=== PATIENT | female | born 1950 | race Caucasian/White ===

== ENCOUNTER 2020-02-20 22:13 | Observation (INO) | payer MEDICARE, OTHER ==
[~2020-02-20] VITALS: Ht 160 cm; Wt 108.5 kg
--- NOTE | 2020-02-20 22:30 | NUR ---
RT PLACED PT'S ARM ON SIDE TABLE WITH FOLDED SHEET FOR COMFORT.
[2020-02-20] MEDS ORDERED: HYDROCODONE/APAP 5MG-325MG TAB PO ONE (22:45)
[2020-02-21] VITALS (8 sets, daily range): BP systolic 149–165; BP diastolic 56–73
--- NOTE | 2020-02-21 00:38 | Diagnostic Imaging Report ---
FOREARM 2 VIEW LT -HOPD - 2 views HISTORY: Pain COMPARISON: None available. IMPRESSION: Displaced fracture of left radial head as well as posterior dislocation of elbow joint. Suspected tiny avulsion fracture of olecranon. Soft tissue swelling and small elbow joint effusion. Signed by: Dr. Matthias Dominguez MD on 02/20/2020 11:31 PM
--- NOTE | 2020-02-21 00:38 | Diagnostic Imaging Report ---
ELBOW 3 VIEW LT - HOPD - 3 views HISTORY: Pain COMPARISON: None available. IMPRESSION: Displaced fracture of left radial head as well as posterior dislocation of radius and ulna with respect to the humerus. Suspected tiny avulsion fracture of olecranon. Soft tissue swelling and small elbow joint effusion. Signed by: Dr. Matthias Dominguez MD on 02/20/2020 11:33 PM
--- NOTE | 2020-02-21 00:38 | Diagnostic Imaging Report ---
HUMERUS 2 VIEW LT - HOPD - 4 views HISTORY: Pain COMPARISON: None available. IMPRESSION: No definite evidence of acute displaced fracture of the left humerus. Signed by: Dr. Matthias Dominguez MD on 02/20/2020 11:34 PM
--- OUTSIDE RECORDS SUMMARY | 2020-02-21 00:40 | XMS REPORT ---
Author Author SOTO Galeano Organization Unknown Address Unknown Phone Care Team Providers Care Core Cleaner Name Role Phone Luli Galeano PP Reason for Referral No Reason for Referral was given. History of Present Illness No HPI available. Problems * Normal Routine History And Physical Adult (V70.0); (Active) * Rheumatoid Arthritis (714.0); (Active) * Hypertension (401.9); (Active) Medication * Doxazosin Mesylate 2 MG Oral Tablet; TAKE 1 TABLET DAILY DIRECTED. (Active) * Levothyroxine Sodium 88 MCG Oral Tablet; TAKE 1 TABLET DAILY (Active) * Atenolol 100 MG Oral Tablet; TAKE 1 TABLET DAILY DIRECTED. (Active) * Benicar HCT 40-12.5 MG Oral Tablet; TAKE 1 TABLET DAILY (Active) * Antivert 25 MG Oral Tablet; TAKE 1 TABLET 3 TIMES DAILY NEEDED. (Active) * Phenergan 25 MG TABS; TAKE 1 TABLET EVERY 6 HOURS PRN N&V (Active) * Omnicef 300 MG CAPS; TAKE 1 CAPSULE EVERY 12 HOURS DAILY. (Active) Allergies and Adverse Reactions * No Known Drug Allergies (Active) Past Medical History * History of Dizziness (780.4); (Resolved) Advance Directives * No Advance Directives available. Encounters * AUDIT 02/24/2013 * ECL, Provider: MEMO WILSON, Status: Filemon, Time: 8:30 AM 02/24/2013
--- OUTSIDE RECORDS SUMMARY | 2020-02-21 00:40 | XMS REPORT | Summary of Care ---
Author Author [facility] Address [address] [place] [address] Phone Unavailable Care Team Providers Care Exploration Geologist Name Role Phone KATIE Latham, MEMO Unavailable Unavailable CROW King, ARIC Unavailable Unavailab Adolph ALLEN [place], CAT CACERES Unavailable Unavailable HILLARY ALLEN [place], GREGG ORTEGA Unavailable Unavailable KATIE ALFARO, MEMO Unavailable Unavailable MAVERICK ALLEN [place], ROSARIO Coyle Unavailable Unavailable GERARD ULLOA, ISABELLE Maloney Unavailable Unavailable MOISE ALLEN, DALTON Llamas Unavailable Unavailable VIOLET King, CAT Unavailable Unavailable Crow ALLEN, Aric Unavailable Unavailable Unavailable Unavailable Functional Status Name Dates Details Functional status health issues are not documented Status: Name Dates Details Cognitive status health issues are not d ocumented Status: Problems Name Dates Details Rheumatoid arthritis (714.0, M06.9) Status: Active Need for pneumococcal vaccination (V03.8 2, Z23) Status: Active High triglycerides (272.1, E78.1) Status: Active Uncontrolled hypertension (401.9, I10) Status: Active Herpes zoster (053.9, B02.9) Status: Active Pharyngitis (462, J02.9) Status: Active Hives (708.9, L50.9) Status: Active Elevated sed rate (790.1, R70.0) Status: Active Post-menopausal osteoporosis (733.01, M8 1.0) Status: Active Left knee pain (719.46, M25.562) Status: Active Soft tissue lesion of knee region (729.9 9, M79.89) Status: Active Tear of meniscus of left knee (836.2, S8 3.207A) Status: Active Munroe cyst, 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, 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) Status: Active Tear of cartilage of left knee (836.2, S 83.207A) Status: Active Localized osteoarthrosis of left hip (71 5.35, M16.12) Status: Active Bilateral leg edema (782.3, R60.0) Status: Active Acute bronchitis (466.0, J20.9) Status: Active Motion sickness (994.6, T75.3XXA) Status: Active Impaired fasting glucose (790.21, R73.01 ) Status: Active Flu vaccine need (V04.81, Z23) Status: Active Allergic reaction to drug (995.27, T78.4 0XA) Status: Active Dermatitis (692.9, L30.9) Status: Active Left shoulder pain (719.41, M25.512) Status: Active Encounter for hepatitis C virus screenin g test for high risk patient (V73.89, Z11.59) Status: Active Need for vaccination with 13-polyvalent pneumococcal conjugate vaccine (V03.82, Z23) Status: Active Fatigue (780.79, R53.83) Status: Active Pressure in chest (786.59, R07.89) Status: Active Unstable angina (411.1, I20.0) Status: Active Acute streptococcal pharyngitis (034.0, J02.0) Status: Active Acute UTI (599.0, N39.0) Status: Active Skin candidiasis (112.3, B37.2) Status: Active Left renal mass (593.9, N28.89) Status: Active Thumb pain, left (729.5, M79.645) Status: Active Fall in home, sequela (909.4, W19.XXXS) Status: Active Allergic rhinitis (477.9, J30.9) Status: Active Hypokalemia (276.8, E87.6) Status: Active Encounter for mini-mental status examina tion Status: Active At moderate risk for fall (V15.88, Z91.8 1) Status: Active Medicare annual wellness visit, subseque nt (V70.0, Z00.00) Status: Active Acute frontal sinusitis (461.1, J01.10) Status: Active Breast cancer screening (V76.10, Z12.39) Status: Active Post-menopausal (V49.81, Z78.0) Status: Active Osteoporosis screening (V82.81, Z13.820) Status: Active Abnormal glucose measurement (790.29, R7 3.09) Status: Active Cellulitis of left lower extremity (682. 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, M17.11 ) Status: Active Edema (782.3, R60.9) Status: Active At risk for change in mental status (V15 .89, Z91.89) Status: Active Advance directive discussed with patient (V65.49, Z71.89) Status: Active Urinary incontinence (788.30, R32) Status: Active Acute bronchitis, viral (466.0, J20.8) Status: Active Depression screening (V79.0, Z13.31) Status: Active Otitis media, acute (382.9, H66.90) Status: Active Maxillary sinusitis, acute (461.0, J01.0 0) Status: Active Acute otitis media (382.9, H66.90) Status: Active Otalgia of both ears (388.70, H92.03) Status: Active Bilateral hearing loss (389.9, H91.93) Status: Active 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, H90.5) Status: Active Prediabetes (790.29, R73.03) Status: Active Acute bacterial bronchitis (466.0, J20.8 ) Status: Active Hypothyroidism (244.9, E03.9) Status: Active Adult BMI 40.0-44.9 kg/sq m (V85.41, Z68 .41) Status: Active Hyperlipidemia (272.4, E78.5) Status: Active Essential (primary) hypertension (401.9, I10) Status: Active Lower extremity edema (782.3, R60.0) Status: Active Lymphedema (457.1, I89.0) Status: Active Left leg pain (729.5, M79.605) Status: Active Stasis edema of left lower extremity (45 9.30, I87.302) Status: Active Chronic venous insufficiency (459.81, I8 7.2) Status: Active Medications Name Dates Details Doxazosin Mesylate 4 MG Oral Tablet TAKE 1 TABLET DAILY DIRECTED Quantity: 90 KATIE P.A., MEMO * Start : 28-Jan-2014 Active Levothyroxine Sodium 88 MCG Oral Tablet TAKE ONE TABLET BY MOUTH EVERY DAY DIRECTED * Quantity: 90 Refills: 1 KATIE P.A. MEMO * Start : 18-Mar-2015 Active Ventolin HFA 108 (90 Base) MCG/ACT Inhalation Aerosol Solution INHALE 2 PUFFS EVERY 4 HOURS NEEDED * Quantity: 1 Refills: 1 KATIE P.A.NICOLEMEMO * Start : 29-Sep-2013 Active 8 GM Inhaler Atenolol 50 MG Oral Tablet TAKE 1 TABLET TWICE DAILY. * Quantity: 180 Refills: 1 KATIE P.A.NICOLEMEMO * Start : 21-Jul-2014 Active amLODIPine Besylate 5 MG Oral Tablet TAKE 1 TABLET Daily NEEDS OFFICE VISIT * Quantity: 90 Refills: 3 ARIC MARIA M.D. * Start : 12-Jan-2015 Active Fluticasone Propionate 50 MCG/ACT Nasal Suspension USE 1 SPRAY IN EACH NOSTRIL TWICE A DAY * Quantity: 16 Refills: 2 KATIE P.A.NICOLEMEMO * Start : 25-Oct-2017 Active Claudette 180 MG TABS TAKE 1 TABLET DAILY NEEDED. * Refills: 0 Active Tylenol CAPS PRN * Refills: 0 Active Olmesartan Medoxomil 40 MG Oral Tablet TAKE 1 TABLET DAILY. * Quantity: 90 Refills: 1 KATIE P.A.NICOLEMEMO * Start : 15-Oct-2016 Active Betamethasone Dipropionate Aug 0.05 % External Ointment APPLY SPARINGLY TO AFFECTED AREA(S) TWICE DAILY * Quantity: 1 Refills: 1 KATIE P.A. MEMO * Start : 25-Feb-2018 Active 45 GM Tube Pravastatin Sodium 40 MG Oral Tablet TAKE 1 TABLET Daily NEEDS OFFICE VISIT * Quantity: 90 Refills: 1 KATIE P.A.NICOLEMEMO * Start : 28-Feb-2018 Active Aspirin Low Dose 81 MG Oral Tablet Delayed Release TAKE 1 TABLET EVERY OTHER DAY * Refills: 0 ARIC MARIA M.D. * Start : 10-Jul-2018 Active Allergies and Adverse Reactions Name Dates Details Bactrim DS TABS (Allergy) Status: Active Cephalexin Monohydrate TABS (Allergy) St atus: Active Cephalosporins (Allergy) Status: Denied clindamycin (Allergy) Status: Denied Almonds (Allergy) Status: Active Animal dander - Cats (Allergy) Status: A ctive Past Medical History Name Dates Details History of Acute laryngitis (464.00, J04 .0) Status: Resolved History of Acute maxillary sinusitis (46 1.0, J01.00) Status: Resolved History of acute pharyngitis (V12.69, Z8 7.09) Status: Resolved History of acute sinusitis (V12.69, Z87. 09) Status: Resolved History of gastroenteritis (V12.79, Z87. 19) Status: Resolved History of Hematoma (924.9, T14.8XXA) Status: Resolved History of Pain in joint of left shoulde r (719.41, M25.512) Status: Resolved History of Plantar fasciitis (728.71, M7 2.2) Status: Resolved History of serous otitis media (V12.49, Z86.69) Status: Resolved Procedures Procedure Dates Details CVRAD - Lower Venous Comp - 70349 Date: 12-Jun-2019 History of Sinus Surgery Completed History of Total Abdominal Hysterectomy With Removal Of Both Ovaries Completed Immunization Name Dates Details Influenza Lot #: [id number] on: 19-May-2014 Pneumococcal polysaccharide vaccine, 23 valent Lot #: [id number] on: 09-Aug-2014 Fluzone Quadrivalent 0.5 ML Intramuscula r Suspension Prefilled Syringe Lot #: [id number] on: 02-May-2016 Prevnar 13 Intramuscular Suspension Lot #: [id number] on: 06-Aug-2016 Prevnar 13 Intramuscular Suspension Lot #: [id number] on: 06-Aug-2016 Fluzone Quadrivalent 0.5 ML Intramuscula r Suspension Lot #: [id number] on: 24-Apr-2017 Fluzone High-Dose 0.5 ML Intramuscular S uspension Prefilled Syringe Lot #: [id number] on: 29-Apr-2018 Tdap Not Administered Family History Name Dates Details Family history of congestive heart failu re (V17.49, Z82.49) Status: Active Family history of Hypertension (401.9, I 10) Status: Active Name Dates Details Family history of Hypertension (401.9, I 10) Status: Active Family history of Coronary artery diseas e (414.00, I25.10) Status: Active Name Dates Details Family history of hypertension (V17.49, Z82.49) Status: Active Social History Name Dates Details - Status: Name Dates Details Never smoker Vital Signs Date Test Result Details No Known Vitals to report Results Date Description Value Details Results not documented Plan of Care Name Dates Details Planned Observations Planned Goals not documented Planned Encounters Appointment; GREGG THORNTON M.D. On: 01-Sep-2019 9:00 Appointment; ARIC MARIA M .D. On: 30-Oct-2019 10:40 Instructions Name Dates Details Instructions not documented Encounters Appointment; MEMO WILSON P.A. Encounter Diagnosis: Problem not documented On: 08-Aug-2017 11:00 Appointment; MEMO WILSON P.A. Encounter Diagnosis: Problem not documented On: 23-Oct-2017 13:15 Appointment; MEMO WILSON P.A. Encounter Diagnosis: Problem not documented On: 25-Feb-2018 14:00 Appointment; MEMO WILSON P.A. Encounter Diagnosis: Problem not documented On: 29-Apr-2018 10:45 Appointment; ARIC MARIA M .D. Encounter Diagnosis: Problem not documented On: 30-Apr-2018 13:40 Appointment; MEMO WILSON P.A. Encounter Diagnosis: Problem not documented On: 02-Jun-2018 8:00 Appointment; SCOTTY GUTIERREZ M.D. Encounter Diagnosis: Problem not documented On: 11-Jun-2018 13:15 Appointment; SCOTTY GUTIERREZ M.D. Encounter Diagnosis: Problem not documented On: 16-Jul-2018 13:15 Appointment; MEMO WILSON P.A. Encounter Diagnosis: Problem not documented On: 12-Aug-2018 15:00 Appointment; ISABELLE GEE NP Encounter Diagnosis: Problem not documented On: 03-Nov-2018 10:30 Appointment; DALTON PHIPPS M.D. Encounter Diagnosis: Problem not documented On: 13-Nov-2018 13:45 Appointment; JALEESA FLORES Encounter Diagnosis: Problem not documented On: 20-Nov-2018 15:30 Appointment; DALTON PHIPPS M.D. Encounter Diagnosis: Problem not documented On: 27-Nov-2018 13:30 Appointment; DALTON PHIPPS M.D. Encounter Diagnosis: Problem not documented On: 01-Jan-2019 10:15 Appointment; MEMO WILSON P.A. Encounter Diagnosis: Problem not documented On: 17-Feb-2019 13:00 Appointment; [facility] Encounter Diagnosis: Problem not documented On: 28-Apr-2019 11:00 Appointment; ARIC MARIA M .D. Encounter Diagnosis: Problem not documented On: 28-Apr-2019 12:00 Appointment; GREGG THORNTON M.D. Encounter Diagnosis: Problem not documented On: 22-May-2019 11:30 Appointment; [facility] Encounter Diagnosis: Problem not documented On: 12-Jun-2019 8:00 Appointment; GREGG THORNTON M.D. Encounter Diagnosis: Problem not documented On: 19-Jun-2019 11:15
--- OUTSIDE RECORDS SUMMARY | 2020-02-21 00:40 | XMS REPORT | Continuity of Care Document ---
Author Author MobimSOTO Mobim Address Unknown Phone Unavailable Care Team Providers Care Masonry Contractor Administrator Name Role Phone [employer] Unavailable Un available Problems Problem Status Onset Date Classification Date Reported Comments Source Rheumatoid Arthritis Active 08/26/2013 [facility] Hypertension Active 08/26/2013 [facility] Acute Conjunctivitis Active 08/26/2013 [facility] Periorbital Cellulitis Active 08/26/2013 [facility] Acute Upper Respiratory Infection Active 08/26/2013 [facility] Cellulitis Active 08/26/2013 [facility] Hypothyroidism Active 08/26/2013 [facility] Medications Medication Details Route Status Patient Instructions Ordering Provider Order Date Source Betamethasone Dipropionate Aug 0.05 % External Ointmen t ; Start Date: 08/26/2013; End Date: (Active) Active 08/26/2013 [facility] Mupirocin 2 % External Ointment ; Start Date: 08/26/2013; End Date: (Active) Active 08/26/2013 [facility] Clindamycin HCl 300 MG Oral Capsule ; Start Date: 08/26/2013; End Date: (Active) Active 08/26/2013 [facility] Sulfamethoxazole-TMP DS 800-160 MG Oral Tablet ; Start Date: 08/26/2013; End Date: (Active) Active 08/26/2013 [facility] Cortisporin-TC 3.3-3-10-0.5 MG/ML Otic Suspension ; Start Date: 08/26/2013; End Date: (Active) Active 08/26/2013 [facility] Amoxicillin-Pot Clavulanate 500-125 MG Oral Tablet ; Start Date: 05/13/2013; End Date: (Active) Active 05/13/2013 [facility] Cefdinir 300 MG Oral Capsule ; Start Date: 02/24/2013; End Date: (Active) Active 02/24/2013 [facility] Levothyroxine Sodium 88 MCG Oral Tablet ; Start Date: ; End Date: (Active) Inactive [facility] Atenolol 100 MG Oral Tablet ; Start Date: ; End Date: (Active) Inactive [facility] Doxazosin Mesylate 2 MG Oral Tablet (Active) Active [facility] Levothyroxine Sodium 88 MCG Oral Tablet (Active) Active [facility] Atenolol 100 MG Oral Tablet ( Active) Active [facility] Benicar HCT 40-12.5 MG Oral Tablet (Active) Active [facility] Antivert 25 MG Oral Tablet (A ctive) Active [facility] Phenergan 25 MG TABS (Active) Active [facility] Omnicef 300 MG CAPS (Active) Active [facility] PredniSONE 10 MG Oral Tablet (Active) Active [facility] Allergies, Adverse Reactions, Alerts Substance Category Reaction Severity Reaction type Status Date Reported Comments Source No Known Drug Allergies drug a llergy drug aller gy Active [facility] Immunizations No Data Provided for This Section Results No Data Provided for This Section Pathology Reports No Data Provided for This Section Diagnostic Reports No Data Provided for This Section Consultation Notes No Data Provided for This Section Discharge Summaries No Data Provided for This Section History and Physicals No Data Provided for This Section Vital Signs No Data Provided for This Section Encounters Location Location Details Encounter Type Encounter Number Reason For Visit Attending Provider ADM Date DC Date Status Source AUDIT [id number] 02/24/2013 02/24/2013 [facility] ECL, Provi maggie: MEMO WILSON, Status: Pen, Time: 8:30 AM [id number] 02/25/20 13 02/24/2013 [facility] AUDIT [id number] 05/13/2013 05/13/2013 [facility] AUDIT [id number] 08/26/2013 08/26/2013 [facility] FUMray, Provluz maria maggie: MEMO WILSON, Status: Pen, Time: 1:00 PM [id number] 08/28/19 14 08/26/2013 [facility] Procedures No Data Provided for This Section Assessment and Plan No Data Provided for This Section Plan of Care Plan of Care Date Source [[facility]] CBC (INCLUDES DIFF/PLT) 05/13/2013 Routine[[facility]] CMP W/EGFR 05/13/2013 Routine[Q] LIPID PANEL WITH REFLEX TO DIRECT LDL 05/13/2013 Routine[[facility]] TSH, 3RD GENERATION 05/13/2013 Routine 05/13/2013 [facility] Social History Social History Date Source Never A Smoker (Active) 08/26/2013 [facility] Family History No Data Provided for This Section Advance Directives Order Name Results Value Date Source Advance Directives Advance Dir ectives No Advance Directives available. 08/26/2013 [facility] Advance Directives Advance Dir ectives No Advance Directives available. 05/13/2013 [facility] Advance Directives Advance Dir ectives No Advance Directives available. 02/24/2013 [facility] Functional Status No Data Provided for This Section
--- OUTSIDE RECORDS SUMMARY | 2020-02-21 00:40 | XMS REPORT ---
Author Author SOTO Hernandez Organization Unknown Address Unknown Phone Care Team Providers Care Public Service Representative Name Role Phone Antony Hernandezmaldonado PP Unavailable Reason for Referral No Reason for Referral was given. History of Present Illness No HPI available. Problems * Normal Routine History And Physical Adult (V70.0); (Active) * Rheumatoid Arthritis (714.0); (Active) * Acute Conjunctivitis (372.00); (Active) * Periorbital Cellulitis (682.0); (Active) * Hypertension (401.9); (Active) * Acute Upper Respiratory Infection (465.9); (Active) Medication * Doxazosin Mesylate 2 MG Oral Tablet; TAKE 1 TABLET DAILY DIRECTED. (Active) * Levothyroxine Sodium 88 MCG Oral Tablet; TAKE 1 TABLET DAILY (Active) * Atenolol 100 MG Oral Tablet; TAKE 1 TABLET DAILY DIRECTED. (Active) * Benicar HCT 40-12.5 MG Oral Tablet; TAKE 1 TABLET DAILY (Active) * Cefdinir 300 MG Oral Capsule; TAKE 1 CAPSULE TWICE DAILY.; Start Date: 02/24/2013; End Date: (Active) * PredniSONE 10 MG Oral Tablet; Take 2 a day (Active) * Amoxicillin-Pot Clavulanate 500-125 MG Oral Tablet; TAKE 1 TABLET EVERY 12 HOURS DAILY.; Start Date: 05/13/2013; End Date: (Active) Allergies and Adverse Reactions * No Known Drug Allergies (Active) Past Medical History * History of Dizziness (780.4); (Resolved) * History of Hypertension (401.9); (Resolved) * History of Hypothyroidism (244.9); (Resolved) Procedures Procedure Procedure Date Date Completed Status Total Abdominal Hysterectomy With Removal Of Both Ovaries - - Resolved Sinus Surgery - - Resolved Social History * Never A Smoker (Active) Treatment Plan * [[facility]] CBC (INCLUDES DIFF/PLT) 05/13/2013 Routine * [[facility]] CMP W/EGFR 05/13/2013 Routine * [Q] LIPID PANEL WITH REFLEX TO DIRECT LDL 05/13/2013 Routine * [[facility]] TSH, 3RD GENERATION 05/13/2013 Routine Advance Directives * No Advance Directives available. Encounters * AUDIT 05/13/2013
--- OUTSIDE RECORDS SUMMARY | 2020-02-21 00:40 | XMS REPORT ---
Author Author SOTO WILSON Organization Unknown Address Unknown Phone Care Team Providers Care Marine Equipment Design Engineer Name Role Phone KATIENICOLEMEMO PP Unavailable Reason for Referral No Reason for Referral was given. History of Present Illness No HPI available. Problems * Normal Routine History And Physical Adult (V70.0); (Active) * Rheumatoid Arthritis (714.0); (Active) * Acute Conjunctivitis (372.00); (Active) * Periorbital Cellulitis (682.0); (Active) * Hypertension (401.9); (Active) * Acute Upper Respiratory Infection (465.9); (Active) * Cellulitis (682.9); (Active) * Hypothyroidism (244.9); (Active) Medication * Doxazosin Mesylate 2 MG Oral Tablet; TAKE 1 TABLET DAILY DIRECTED. (Active) * Levothyroxine Sodium 88 MCG Oral Tablet; TAKE 1 TABLET DAILY; Start Date: ; End Date: (Active) * Benicar HCT 40-12.5 MG Oral Tablet; TAKE 1 TABLET DAILY (Active) * Atenolol 100 MG Oral Tablet; TAKE 1 TABLET DAILY DIRECTED.; Start Date: ; End Date: (Active) * Betamethasone Dipropionate Aug 0.05 % External Ointment; APPLY SPARINGLY TO AFFECTED AREA(S) TWICE DAILY; Start Date: 08/26/2013; End Date: (Active) * Mupirocin 2 % External Ointment; APPLY A SMALL AMOUNT 3 TIMES DAILY DIRECTED.; Start Date: 08/26/2013; End Date: (Active) * Clindamycin HCl 300 MG Oral Capsule; 1 tab po tid x 10d.; Start Date: 08/26/2013; End Date: (Active) * Sulfamethoxazole-TMP DS 800-160 MG Oral Tablet; TAKE 1 TABLET TWICE DAILY UNTIL FINISHED.; Start Date: 08/26/2013; End Date: (Active) * Cortisporin-TC 3.3-3-10-0.5 MG/ML Otic Suspension; INSTILL 4 DROP TWICE DAILY; Start Date: 08/26/2013; End Date: (Active) Allergies and Adverse Reactions [...] Social History * Never A Smoker (Active) Advance Directives * No Advance Directives available. Encounters * AUDIT 08/26/2013 * FU, Provider: MEMO WILSON, Status: Filemon, Time: 1:00 PM 08/28/2013
--- OUTSIDE RECORDS SUMMARY | 2020-02-21 00:40 | XMS REPORT | Continuity of Care Document ---
Author Author [facility] t Organization [facility] Address [address] [place] [address] Phone Unavailable Care Team Providers Care Pattern Chart Writer Name Role Phone MEMO WILSON, P.A. Attphys Unavailable MARIAH MARIA M.D. Attphys UnavailGREGG Vázquez M.D. Attphys Unavailable VASCULAR, SE Attphys Unavailable [place]-[facility], ECHO Attphys Unavailable DALTON PHIPPS M.D. Attphys Unavailable JALEESA FLORES Attphys Unavailable ISABELLE GEE APRN Attphys Unavailable SCOTTY GUTIERREZ M.D. Attphys Unavailable [place], NUCLEAR Attphys Unavailable LIDUMILA FAGAN, P.A. Attphys Unavailable Problems Condition Name Condition Details Condition Category Status Onset Date Resolution Date Last Treatment Date Treating Clinician Comments Source Encounter for mini-mental status examination Encounter for mini-mental status examination Problem Active [facility] History of Acute laryngitis History of Acute laryngitis Problem Resolved [facility] Maxillary sinusitis, acute Maxillary sinusitis, acute Problem Active [facility] History of acute sinusitis History of acute sinusitis Problem Resolved [facility] History of gastroenteritis History of gastroenteritis Problem Resolved [facility] History of Hematoma History of Hematoma Problem Resolved [facility] Left shoulder pain Left shoulder pain Problem Active [facility] History of Plantar fasciitis History of Plantar fasciitis Problem Re solved [facility] History of serous otitis media History of serous otitis media Probl em Resolved [facility] carito Physicians Rheumatoid arthritis Rheumatoid arthritis Problem Active [facility] Need for influenza vaccination Need for influenza vaccination Problem Active [facility] Essential (primary) hypertension Essential (primary) hypertensio n Problem Active [facility] Herpes zoster Herpes zoster Problem Active [facility] Sore throat Sore throat Problem Active [facility] Hives Hives Problem Active [facility] Elevated sed rate Elevated sed rate Problem Active [facility] Post-menopausal osteoporosis Post-menopausal osteoporosis Problem Active [facility] Left knee pain Left knee pain Problem Active [facility] Soft tissue lesion of knee region Soft tissue lesion of knee reg ion Problem Active [facility] Tear of cartilage of left knee Tear of cartilage of left knee Problem Active [facility]icians Munroe cyst, left Munroe cyst, left Problem Active [facility] Localized osteoarthrosis of left hip Localized osteoarthrosi s of left hip Problem Active [facility] Lower extremity edema Lower extremity edema Problem Active [facility] Acute bronchitis Acute bronchitis Problem Active [facility] Motion sickness Motion sickness Problem Active [facility] Impaired fasting glucose Impaired fasting glucose Problem Active [facility] Allergic reaction to drug Allergic reaction to drug Problem Active [facility] Dermatitis Dermatitis [facility] Encounter for hepatitis C virus screening test for hig h risk patient Encounter for hepatitis C virus screening test for high risk patient Problem Active [facility] Fatigue Fatigue Problem Active [facility] Pressure in chest Pressure in chest Problem Active [facility] Unstable angina Unstable angina Problem Active [facility] Acute streptococcal pharyngitis Acute streptococcal pharyngitis Pro blem Active [facility] Acute UTI Acute UTI Problem [facility] Skin candidiasis Skin candidiasis Problem Active [facility] Allergic rhinitis Allergic rhinitis Problem Active [facility] Hypokalemia Hypokalemia Problem Active [facility] At moderate risk for fall At moderate risk for fall Problem Active [facility] Medicare annual wellness visit, subsequent Medicare an nual wellness visit, subsequent Problem Active [facility] Acute frontal sinusitis Acute frontal sinusitis Problem Active [facility] Breast cancer screening Breast cancer screening Problem Active [facility] Post-menopausal Post-menopausal Problem Active [facility] Osteoporosis screening Osteoporosis screening Problem Active [facility] Abnormal glucose measurement Abnormal glucose measurement Problem Active [facility] Cellulitis of left lower extremity Cellulitis of left lower extr emity Problem Active [facility] Hematuria Hematuria Problem [facility] Acute otitis media Acute otitis media Problem Active [facility] Acute bronchitis, viral Acute bronchitis, viral Problem Active [facility] Left leg pain Left leg pain Problem Active [facility] Stasis edema of left lower extremity Stasis edema of left lo wer extremity Problem Active [facility] Otitis, serous Otitis, serous Problem Active [facility] Depression screening negative Depression screening negative Problem Active [facility] Chronic venous insufficiency Chronic venous insufficiency Problem Active [facility] Edema Edema Problem Active [facility] High triglycerides High triglycerides Problem Active [facility] Hypothyroidism Hypothyroidism Problem Active [facility] Adult BMI 40.0-44.9 kg/sq m Adult BMI 40.0-44.9 kg/sq m Problem Active [facility] Prediabetes Prediabetes Problem Active [facility] Hyperlipidemia Hyperlipidemia Problem Active [facility] Mitral and aortic regurgitation Mitral and aortic regurgitation Pro blem Active [facility] ex [facility]icians Asymmetric SNHL (sensorineural hearing loss) Asymmetri c SNHL (sensorineural hearing loss) Problem Active [facility] Bilateral hearing loss Bilateral hearing loss Problem Active [facility] Otalgia of both ears Otalgia of both ears Problem Active [facility] Urinary incontinence Urinary incontinence Problem Active [facility] Advance directive discussed with patient Advance direc tive discussed with patient Problem Active [facility]icians At risk for change in mental status At risk for change in mental status Problem Active [facility] Arthritis of knee, right Arthritis of knee, right Problem Active [facility] Right knee pain Right knee pain Problem Active [facility] Vitamin D deficiency Vitamin D deficiency Problem Active [facility] Dizziness Dizziness Problem Active [facility] Atrophic vaginitis Atrophic vaginitis Problem Active [facility] Fall in home, sequela Fall in home, sequela Problem Active [facility] Thumb pain, left Thumb pain, left Problem Active [facility] Left renal mass Left renal mass Problem Active [facility] Lymphedema Lymphedema [facility] Rheumatoid Arthritis Rheu matoid Arthritis Active 08/26/2013 [facility] Problem Active 2013-08-26 16:36:39 Nkechi Dickson Hypertension Hype rtension Active 08/26/2013 [facility] Problem Active 2013-08-26 16:36:39 Chi Dickson Acute Conjunctivitis Acut e Conjunctivitis Active 08/26/2013 [facility] Problem Active 2013-08-26 16:36:39 Nkechi Dickson Periorbital Cellulitis Maria Antonia orbital Cellulitis Active 08/26/2013 [facility] Problem Active 2013-08-26 16:36:39 Nkechi Dickson Acute Upper Respiratory Infection Acute Upper Respiratory Infection Active 08/26/2013 [facility] Problem Active 2013-08-26 16:36:39 Nkechi Dickson Cellulitis Cell ulitis Active 08/26/2013 [facility] Problem Active 2013-08-26 16:36:39 Nkechi Dickson Hypothyroidism Hypo thyroidism Active 08/26/2013 [facility] Problem Active 2013-08-26 16:36:39 M chikis Dickson Allergies, Adverse Reactions, Alerts Allergy Name Allergy Type Status Severity Reaction(s) Onset Date Inacti ve Date Treating Clinician Comments Source Bactrim DS TABS Allergy to drug (finding) Active [facility] Cephalexin Monohydrate TABS Allergy to drug (finding) Active [facility] Cephalosporins Allergy to drug (finding) Inactive [facility] clindamycin Allergy to drug (finding) Inactive [facility] Almonds Allergy to substance (finding) Active [facility] Animal dander - Cats Allergy to substance (finding) Active [facility] No Known Drug Allergies No Known Drug Allergies Active Nkechi Dickson Family History Family Member Diagnosis Comments Start Date Stop Date Source Mother Family history of congestive heart failure [facility] Mother Family history of Hypertension [facility] Father Family history of Hypertension [facility] Father Family history of Coronary artery disease [facility] Brother Family history of hypertension [facility] Social History Social Habit Start Date Stop Date Quantity Comments Source Social History 2013-08-26 16:36:39 2013-08-26 16:36:39 Nkechi Dickson Smoking Status Start Date Stop Date Source [facility] smoked tobacco (finding[facility] Medications Ordered Medication Name Filled Medication Name Start Date Stop Da te Current Medication? Ordering Clinician Indication Dosage Frequency Signature (SIG) Comments Components Source Amoxicillin-Pot Clavulanate 875-125 MG Oral Tablet Siobhan xicillin-Pot Clavulanate 875-125 MG Oral Tablet 2019-12-04 00:00:00 Yes MEMO WILSON P.A. Q12H TAKE 1 TABLET EVERY 12 HOURS DAILY. [facility] Aspirin Low Dose 81 MG Oral Tablet Delayed Release Asp irin Low Dose 81 MG Oral Tablet Delayed Release 2018-07-10 00:00:00 Yes MARIAH ESTEBAN M.D. 1 QD TAKE 1 TABLET EVERY OTHER DAY [facility] Pravastatin Sodium 40 MG Oral Tablet Pravastatin Sodium 40 M G Oral Tablet 2018-02-28 00:00:00 Yes MEMO KATIE P.A. QD TAKE 1 TABLET Daily NEEDS OFFICE VISIT [facility] Betamethasone Dipropionate Aug 0.05 % External Ointmen t Betamethasone Dipropionate Aug 0.05 % External Ointment 2018-02-25 00:00:00 Ye s MEMO KATIE P.A. Q0.5D APPLY SPARINGLY TO AFFECTED AREA(S) TWIC E DAILY [facility] Fluticasone Propionate 50 MCG/ACT Nasal Suspension Flu ticasone Propionate 50 MCG/ACT Nasal Suspension 2017-10-25 15:58:00 Yes MEMO KATIE P.A. USE 1 SPRAY IN EACH NOSTRIL TWICE A DAY [facility] Olmesartan Medoxomil 40 MG Oral Tablet Olmesartan Medoxomil 40 MG Oral Tablet 2016-10-15 00:00:00 Yes MEMO WILSON P.A. 1 QD TAKE 1 TABLET DAILY. [facility] Levothyroxine Sodium 88 MCG Oral Tablet Levothyroxine Sodium 88 MCG Oral Tablet 2015-03-18 00:00:00 Yes MEMO KATIE P.A. TAKE ONE TABLET BY MOUTH EVERY DAY DIRECTED [facility] amLODIPine Besylate 5 MG Oral Tablet amLODIPine Besylate 5 M G Oral Tablet 2015-01-12 00:00:00 Yes MARIAH MARIA M.D. QD TAKE 1 TABLET BY MOUTH DAILY [facility] Atenolol 50 MG Oral Tablet Atenolol 50 MG Oral Tablet 2014-07-21 00:0 0:00 Yes MEMO KATIE P.A. Q0.5D TAKE 1 TABLET TWICE DAILY. [facility] Doxazosin Mesylate 4 MG Oral Tablet Doxazosin Mesylate 4 MG Oral Tablet 2014-01-28 00:00:00 Yes MEMO KATIE P.A. 1 QD TAKE 1 TABLET DAILY DIRECTED [facility] Ventolin HFA 108 (90 Base) MCG/ACT Inhalation Aerosol Solution Ventolin HFA 108 (90 Base) MCG/ACT Inhalation Aerosol Solution 2013-09-29 00:00:00 Yes MEMO WILSON P.A. 2 INHALE 2 PUFFS EVERY 4 HOURS NEEDED [facility] Doxazosin Mesylate 2 MG Oral Tablet 2013-08-26 16:36:39 Yes (Active) Nkechi Dickson Benicar HCT 40-12.5 MG Oral Tablet 2013-08-26 16:36:39 Yes (Active) Nkechi Dickson Betamethasone Dipropionate Aug 0.05 % External Ointment 2013-08-26 06:00:00 Yes ; Start Date: 08/26/2013; End Date: 07/1899 (Active) Nkechi Dickson Mupirocin 2 % External Ointment 2013-08-26 06:00:00 Yes ; Start Date: 08/26/2013; End Date: (Active) Nkechi Dickson Clindamycin HCl 300 MG Oral Capsule 2013-08-26 06:00:00 Yes ; Start Date: 08/26/2013; End Date: (Active) Nkechi Dickson Sulfamethoxazole-TMP DS 800-160 MG Oral Tablet 2013-08-26 06:00: 00 Yes ; Start Date: 08/26/2013; End Date: (Active ) Nkechi Dickson Cortisporin-TC 3.3-3-10-0.5 MG/ML Otic Suspension 2013-08-26 06:00:00 Yes ; Start Date: 08/26/2013; End Date: (Active) Nkechi Dickson Levothyroxine Sodium 88 MCG Oral Tablet 2013-05-13 22:47:29 Yes (Active) Nkechi Dickson Atenolol 100 MG Oral Tablet 2013-05-13 22:47:29 Yes (Active) Nkechi Dickson PredniSONE 10 MG Oral Tablet 2013-05-13 22:47:29 Yes (Active) Nkechi Dickson Amoxicillin-Pot Clavulanate 500-125 MG Oral Tablet 2013-05 06:00:00 Yes ; Start Date: 05/13/2013; End Date: 07/1899 (Active) Nkechi Dickson Antivert 25 MG Oral Tablet 2013-02-24 11:46:35 Yes (Active) Nkechi Dickson Phenergan 25 MG TABS 2013-02-24 11:46:35 Yes (Active) Nkechi Dickson Omnicef 300 MG CAPS 2013-02-24 11:46:35 Yes (Active) Nkechi Dickson Cefdinir 300 MG Oral Capsule 2013-02-24 05:00:00 Yes ; Start Date: 02/24/2013; End Date: (Active) Nkechi Dickson Levothyroxine Sodium 88 MCG Oral Tablet Yes ; Start Date: ; End Date: (Active) Nkechi Dickson Atenolol 100 MG Oral Tablet Yes ; Start Date: ; End Date: (Active) Nkechi Dickson Claudette 180 MG TABS Claudette 180 MG TABS Yes 1 TAKE 1 TABLET DAILY NEEDED. [facility] Tylenol CAPS Tylenol CAPS Yes PRN [facility] Refresh SOLN Refresh SOLN Yes [facility] Immunizations Ordered Immunization Name Filled Immunization Name Date Status Comments Source Fluzone High-Dose 0.5 ML Intramuscular Suspension Prefilled Syringe 2019-05-08 00:00:00 Completed [facility] Fluzone High-Dose 0.5 ML Intramuscular Suspension Prefilled Syringe 2018-04-29 13:13:00 Completed [facility] Fluzone Quadrivalent 0.5 ML Intramuscular Suspension 2017-04-24 14:47:00 Completed [facility] Prevnar 13 Intramuscular Suspension 2016-08-06 15:34:00 Co mpleted [facility] Prevnar 13 Intramuscular Suspension 2016-08-06 09:16:00 Co mpleted [facility] Fluzone Quadrivalent 0.5 ML Intramuscular Suspension Prefill ed Syringe 2016-05-02 11:26:00 Completed [facility] Pneumococcal polysaccharide vaccine, 23 valent 2014-08 16:09:00 Completed [facility] Influenza 2014-05-19 16:30:00 Completed [facility] Vital Signs Vital Name Observation Time Observation Value Comments Source Systolic blood pressure 2019-12-04 14:13:00 147 mm[Hg] Loca tion: LUE; Position: Sitting [facility] Diastolic blood pressure 2019-12-04 14:13:00 71 mm[Hg] Loc ation: LUE; Position: Sitting [facility] Body height 2019-12-04 14:13:00 63 [in_us] [facility] Weight 2019-12-04 14:13:00 227.00 [lb_av] [facility] Body mass index (BMI) [Ratio] 2019-12-04 14:13:00 40.21 kg/m2 [facility] Body temperature 2019-12-04 14:13:00 98.5 [degF] Method: [facility] Heart Rate 2019-12-04 14:13:00 64 /min [facility] Respiratory rate 2019-12-04 14:13:00 16 /min [facility] Systolic blood pressure 2019-09-07 13:30:00 119 mm[Hg] Loca tion: LUE; Position: Sitting [facility] Diastolic blood pressure 2019-09-07 13:30:00 72 mm[Hg] Loc ation: LUE; Position: Sitting [facility] Body height 2019-09-07 13:30:00 63 [in_us] [facility] Weight 2019-09-07 13:30:00 232.5 [lb_av] [facility] Body mass index (BMI) [Ratio] 2019-09-07 13:30:00 41.19 kg/m2 [facility] Body temperature 2019-09-07 13:30:00 97.9 [degF] Method: [facility] Respiratory rate 2019-09-07 13:30:00 16 /min [facility] Heart Rate 2019-09-07 13:30:00 66 /min [facility] Systolic blood pressure 2019-08-03 13:25:00 117 mm[Hg] Loca tion: LUE; Position: Sitting [facility] Diastolic blood pressure 2019-08-03 13:25:00 70 mm[Hg] Loc ation: LUE; Position: Sitting [facility] Body height 2019-08-03 13:25:00 63 [in_us] [facility] Weight 2019-08-03 13:25:00 236 [lb_av] [facility] Body mass index (BMI) [Ratio] 2019-08-03 13:25:00 41.81 kg/m2 [facility] Body temperature 2019-08-03 13:25:00 97.9 [degF] Method: [facility] Heart Rate 2019-08-03 13:25:00 63 /min [facility] Respiratory rate 2019-08-03 13:25:00 16 /min [facility] BP Systolic 2019-04-28 12:53:00 132 mm[Hg] Location: RUE; Positi on: Sitting [facility] BP Diastolic 2019-04-28 12:53:00 79 mm[Hg] Location: RUE; Positi on: Sitting [facility] Heart Rate 2019-04-28 12:53:00 61 /min Location: R Radial; Q uality: Normal [facility] BP Systolic 2019-04-28 12:52:00 151 mm[Hg] Location: RUE; Positi on: Sitting [facility] BP Diastolic 2019-04-28 12:52:00 76 mm[Hg] Location: RUE; Positi on: Sitting [facility] Heart Rate 2019-04-28 12:52:00 69 /min Location: R Radial; Q uality: Normal [facility] Height 2019-04-28 12:52:00 63 [in_us] [facility] Weight 2019-04-28 12:52:00 241 [lb_av] [facility] Body Mass Index Calculated 2019-04-28 12:52:00 42.69 kg/m2 [facility] BP Systolic 2019-02-17 12:59:00 121 mm[Hg] Location: LUE; Positi on: Sitting [facility] BP Diastolic 2019-02-17 12:59:00 70 mm[Hg] Location: LUE; Positi on: Sitting [facility] Height 2019-02-17 12:59:00 63 [in_us] [facility] Weight 2019-02-17 12:59:00 239.3125 [lb_av] [facility] Body Mass Index Calculated 2019-02-17 12:59:00 42.39 kg/m2 [facility] Temperature 2019-02-17 12:59:00 98.6 [degF] Method: Temporal [facility] Respiration Rate 2019-02-17 12:59:00 16 /min [facility] Heart Rate 2019-02-17 12:59:00 69 /min [facility] O2 SAT 2019-02-17 12:59:00 95 % [facility] BP Systolic 2018-11-27 13:52:00 136 mm[Hg] Location: LUE; Positi on: Sitting [facility] BP Diastolic 2018-11-27 13:52:00 79 mm[Hg] Location: LUE; Positi on: Sitting [facility] Height 2018-11-27 13:52:00 63 [in_us] [facility] Weight 2018-11-27 13:52:00 234.1875 [lb_av] [facility] Body Mass Index Calculated 2018-11-27 13:52:00 41.48 kg/m2 [facility] Heart Rate 2018-11-27 13:52:00 78 /min [facility] Respiration Rate 2018-11-27 13:52:00 16 /min [facility] BP Systolic 2018-11-13 13:24:00 130 mm[Hg] Location: LUE; Positi on: Sitting [facility] BP Diastolic 2018-11-13 13:24:00 77 mm[Hg] Location: LUE; Positi on: Sitting [facility] Height 2018-11-13 13:24:00 63 [in_us] [facility] Weight 2018-11-13 13:24:00 236 [lb_av] [facility] Body Mass Index Calculated 2018-11-13 13:24:00 41.81 kg/m2 [facility] Heart Rate 2018-11-13 13:24:00 65 /min [facility] Respiration Rate 2018-11-13 13:24:00 16 /min [facility] BP Systolic 2018-11-03 11:16:00 130 mm[Hg] Location: LUE; Positi on: Standing [facility] BP Diastolic 2018-11-03 11:16:00 72 mm[Hg] Location: LUE; Positi on: Standing [facility] BP Systolic 2018-11-03 11:15:00 129 mm[Hg] Location: LUE; Positi on: Sitting [facility] BP Diastolic 2018-11-03 11:15:00 71 mm[Hg] Location: LUE; Positi on: Sitting [facility] BP Systolic 2018-11-03 11:14:00 127 mm[Hg] Location: LUE; Positi on: Supine [facility] BP Diastolic 2018-11-03 11:14:00 66 mm[Hg] Location: LUE; Positi on: Supine [facility] Heart Rate 2018-11-03 11:14:00 73 /[facility] BP Systolic 2018-11-03 11:12:00 150 mm[Hg] Location: LUE; Positi on: Sitting [facility] BP Diastolic 2018-11-03 11:12:00 75 mm[Hg] Location: LUE; Positi on: Sitting [facility] Heart Rate 2018-11-03 11:12:00 66 /min [facility] Height 2018-11-03 11:12:00 63 [in_us] [facility] [facility] Weight 2018-11-03 11:12:00 240 [lb_av] [facility] Body Mass Index Calculated 2018-11-03 11:12:00 42.51 kg/m2 [facility] Temperature 2018-11-03 11:12:00 97.8 [degF] Method: Temporal [facility] Respiration Rate 2018-11-03 11:12:00 16 /min [facility] BP Systolic 2018-08-12 15:20:00 135 mm[Hg] Location: LUE; Positi on: Sitting [facility] BP Diastolic 2018-08-12 15:20:00 78 mm[Hg] Location: LUE; Positi on: Sitting [facility] Temperature 2018-08-12 15:20:00 99.2 [degF] Method: Temporal [facility] Respiration Rate 2018-08-12 15:20:00 16 /min [facility] Heart Rate 2018-08-12 15:20:00 60 /min [facility] Height 2018-08-12 15:19:00 63 [in_us] Universi ty [facility] Weight 2018-08-12 15:19:00 236 [lb_av] [facility] Body Mass Index Calculated 2018-08-12 15:19:00 41.81 kg/m2 [facility] BP Systolic 2018-06-02 08:18:00 124 mm[Hg] Location: LUE; Positi on: Sitting [facility] BP Diastolic 2018-06-02 08:18:00 73 mm[Hg] Location: LUE; Positi on: Sitting [facility] Height 2018-06-02 08:18:00 63 [in_us] Universi ty [facility] Weight 2018-06-02 08:18:00 235 [lb_av] Universi ty [facility] Body Mass Index Calculated 2018-06-02 08:18:00 41.63 kg/m2 [facility] Temperature 2018-06-02 08:18:00 97.9 [degF] Method: Temporal [facility] Respiration Rate 2018-06-02 08:18:00 16 /min [facility] Heart Rate 2018-06-02 08:18:00 74 /min [facility] BP Systolic 2018-04-30 13:42:00 159 mm[Hg] Location: RLE; Positi on: Sitting [facility] BP Diastolic 2018-04-30 13:42:00 77 mm[Hg] Location: RLE; Positi on: Sitting [facility] Height 2018-04-30 13:42:00 63 [in_us] [facility] Weight 2018-04-30 13:42:00 236.5 [lb_av] [facility] ity [facility] Body Mass Index Calculated 2018-04-30 13:42:00 41.89 kg/m2 [facility] Temperature 2018-04-30 13:42:00 98.2 [degF] Method: Oral [facility] Heart Rate 2018-04-30 13:42:00 69 /min [facility] Respiration Rate 2018-04-30 13:42:00 16 /min [facility] BP Systolic 2018-04-29 10:57:00 117 mm[Hg] Location: LUE; Positi on: Sitting [facility] BP Diastolic 2018-04-29 10:57:00 69 mm[Hg] Location: LUE; Positi on: Sitting [facility] Height 2018-04-29 10:57:00 63 [in_us] Universi ty [facility] Weight 2018-04-29 10:57:00 235 [lb_av] [facility] Body Mass Index Calculated 2018-04-29 10:57:00 41.63 kg/m2 [facility] Temperature 2018-04-29 10:57:00 97.4 [degF] Method: Temporal [facility] Heart Rate 2018-04-29 10:57:00 78 /min [facility] [place] [facility] Respiration Rate 2018-04-29 10:57:00 16 /min [facility] [place] [facility] BP Systolic 2018-02-25 14:12:00 129 mm[Hg] Location: LUE; Positi on: Sitting [facility] [place] [facility] BP Diastolic 2018-02-25 14:12:00 75 mm[Hg] Location: LUE; Positi on: Sitting [facility] Height 2018-02-25 14:12:00 63 [in_us] [facility] [place] [facility] Weight 2018-02-25 14:12:00 226.375 [lb_av] [facility] Body Mass Index Calculated 2018-02-25 14:12:00 40.1 kg/m2 [facility] Temperature 2018-02-25 14:12:00 97.9 [degF] Method: Temporal [facility] Heart Rate 2018-02-25 14:12:00 69 /min [facility]i ty [facility] Respiration Rate 2018-02-25 14:12:00 16 /min [facility] [place] [facility] BP Systolic 2017-10-23 13:20:00 114 mm[Hg] Location: LUE; Positi on: Sitting [facility] BP Diastolic 2017-10-23 13:20:00 68 mm[Hg] Location: LUE; Positi on: Sitting [facility] Height 2017-10-23 13:20:00 63 [in_us] [facility] [place] [facility] Weight 2017-10-23 13:20:00 240.25 [lb_av] [facility] Body [facility] Index Calculated 2017-10-23 13:20:00 42.56 kg/m2 [facility] Temperature 2017-10-23 13:20:00 97.5 [degF] Method: Temporal [facility] [place] [facility] Heart Rate 2017-10-23 13:20:00 77 /min [facility] Respiration Rate 2017-10-23 13:20:00 16 /min [facility] [place] [facility] O2 SAT 2017-10-23 13:20:00 97 % Universi ty [facility] BP Systolic 2017-08-08 11:10:00 122 mm[Hg] Location: LUE; Positi on: Sitting [facility] BP Diastolic 2017-08-08 11:10:00 73 mm[Hg] Location: LUE; Positi on: Sitting [facility] Height 2017-08-08 11:10:00 63 [in_us] [facility] Weight 2017-08-08 11:10:00 242.5 [lb_av] [facility] Body Mass Index Calculated 2017-08-08 11:10:00 42.96 kg/m2 [facility] Temperature 2017-08-08 11:10:00 98.1 [degF] Method: Temporal [facility] Heart Rate 2017-08-08 11:10:00 69 /min [facility] Respiration Rate 2017-08-08 11:10:00 16 /min [facility] O2 SAT 2017-08-08 11:10:00 97 % [facility] BP Systolic 2017-05-08 13:59:00 128 mm[Hg] Location: LUE; Positi on: Sitting [facility] BP Diastolic 2017-05-08 13:59:00 56 mm[Hg] Location: LUE; Positi on: Sitting [facility] Height 2017-05-08 13:59:00 63 [in_us] [facility] Weight 2017-05-08 13:59:00 240.375 [lb_av] [facility] Body Mass Index Calculated 2017-05-08 13:59:00 42.58 kg/m2 [facility] Heart Rate 2017-05-08 13:59:00 70 /min Location: L Radial; Q uality: Normal [facility] Procedures Procedure Date / Time Performed Performing Clinician Sour e [QL] CULTURE, URINE, ROUTINE 2019-12-04 00:00:00 [facility] [N] 2D Echo complete, with Doppler [id number] 2019-10-30 00:00:00 [facility] CVRAD - Lower Venous Comp - [id number] 2019-06-12 00:00:00 [facility] [[facility]] CBC (INCLUDES DIFF/PLT) 2019-02-17 00:00:00 [facility] [[facility]] CMP W/EGFR 2019-02-17 00:00:00 [facility] [QH] LIPID PANEL WITH REFLEX TO DIRECT LDL 2019-02-17 00:00:[address] [facility] [QL] TSH, 3RD GENERATION W/REFLEX TO FT4 2019-02-17 00:00:[address] [facility] [[facility]] HEMOGLOBIN A1c 2019-02-17 00:00:00 [facility] [QL] VITAMIN D, 25-HYDROXY, LC/MS/MS 2019-02-17 00:00:[address] [facility] MRI Internal Auditory Canal w/wo contrast [id number] 2018-11-27 00:00 :00 [facility] [O] Basic Audiometry Screen 2018-11-13 00:00:00 [facility] [QL] CBC (INCLUDES DIFF/PLT) 2018-06-02 00:00:00 [facility] [[facility]] CMP W/EGFR 2018-06-02 00:00:00 [facility] [Q] LIPID PANEL WITH REFLEX TO DIRECT LDL 2018-06-02 00:00:00 [facility] [QL] TSH, 3RD GENERATION W/REFLEX TO FT4 2018-06-02 00:00:00 [facility] [QL] HEMOGLOBIN A1c 2018-06-02 00:00:00 [facility] [QL] VITAMIN D, 25-HYDROXY, LC/MS/MS 2018-06-02 00:00:00 [facility] [N] 2D Echo complete, with Doppler [id number] 2018-04-30 00:00:00 [facility] XRAY Knee 3 views [id number] 2018-04-29 00:00:00 [facility] [QL] CBC (INCLUDES DIFF/PLT) 2018-02-25 00:00:[address] [facility] [QLH] CMP W/EGFR 2018-02-25 00:00:[address] [facility] [QH] LIPID PANEL WITH REFLEX TO DIRECT LDL 2018-02-25 00:00:[address] [facility] [QL] TSH, 3RD GENERATION W/REFLEX TO FT4 2018-02-25 00:00:00 [facility] [QL] HEMOGLOBIN A1c 2018-02-25 00:00:00 [facility] [QLH] VITAMIN D, 25-HYDROXY, LC/MS/MS 2018-02-25 00:00:[address] [facility] [QLH] CULTURE, URINE, ROUTINE 2018-02-25 00:00:[address] [facility] MA Digital Mammo Screening Joao [id number] 2018-02-25 00:00:[address] [facility] MA Bone Density DXA [employer] [id number] 2018-02-25 00:00:[address] [facility] [QL] CBC (INCLUDES DIFF/PLT) 2017-04-24 00:00:[address] [facility] History of Total Abdominal Hysterectomy With Removal Of Both Ova katherin [facility] Plan of Care Planned Activity Planned Date Details Comments Source Future Scheduled Test 2020-04-29 00:00:00 [N] 2D Echo comple te, with Doppler 14319 [code = [N] 2D Echo complete, with Doppler 87612] [facility] Future Scheduled Test 2020-03-28 00:00:00 [N] 2D Echo comple te, with Doppler 39644 [code = [N] 2D Echo complete, with Doppler 97561] [facility] Diagnostic Test Pending 2019-04-30 00:00:00 [N] 2D Echo comp lete, with Doppler 95526 [code = [N] 2D Echo complete, with Doppler 17416] [facility] Diagnostic Test Pending 2018-11-13 00:00:00 [O] Basic Audiom etry Screen [code = [O] Basic Audiometry Screen] [facility] Diagnostic Test Pending 2018-07-08 00:00:00 [QLH] CBC (INCLU SPIKE DIFF/PLT) [code = [QL] CBC (INCLUDES DIFF/PLT)] [facility] Diagnostic Test Pending 2018-07-08 00:00:00 [QLH] CMP W/EGFR [code = [QLH] CMP W/EGFR] [facility] Diagnostic Test Pending 2018-07-08 00:00:00 [QH] LIPID PANEL WITH REFLEX TO DIRECT LDL [code = [QH] LIPID PANEL WITH REFLEX TO DIRECT LDL] [facility] Diagnostic Test Pending 2018-07-08 00:00:00 [QLH] TSH, 3RD G ENERATION W/REFLEX TO FT4 [code = [QL] TSH, 3RD GENERATION W/REFLEX TO FT4] [facility] Diagnostic Test Pending 2018-07-08 00:00:00 [QLH] HEMOGLOBIN A1c [code = [QLH] HEMOGLOBIN A1c] [facility] ns Diagnostic Test Pending 2018-07-08 00:00:00 [QLH] VITAMIN D, 25-HYDROXY, LC/MS/MS [code = [QLH] VITAMIN D, 25-HYDROXY, LC/MS/MS] [facility] Future Scheduled Test 2013-05-13 22:47:29 Plan of Care [code = 1877 6-5] [facility] Future Appointment 2020-04-29 11:00:00 Christine LEMUS [facility] Future Appointment 2020-04-29 10:00:00 [facility] En[facility] Start Date/Time End Date/Time Encounter Type Admission Type [facility] Care Department Encounter ID Source 2019-12-04 14:00:00 2019-12-04 14:00:00 Appointment; MEMO WILSON P.A. CRUZ, LETICIA, P.A. [facility], [address] [id number] [facility] 2019-10-30 10:40:00 2019-10-30 10:40:00 Appointment; MARIAH FRANCIS M.D. CHARITAKIS, KONSTANTINOS, M.D. [facility], [address] [id number] [facility] 2019-09-07 13:30:00 2019-09-07 13:30:00 Appointment; MEMO WILSON P.A. CRUZ, LETICIA, P.A. [facility], [address] [id number] [facility] 2019-09-01 09:00:00 2019-09-01 09:00:00 Appointment; GREGG THORNTON M.D. MARTIN, GORDON, M.D. [facility] Thoracic Surgery - [facility] [id number] [facility] 2019-08-03 13:30:00 2019-08-03 13:30:00 Appointment; MEMO WILSON P.A. CRUZ, LETICIA, P.A. [facility] [id number] [facility] 2019-06-19 11:15:00 2019-06-19 11:15:00 Appointment; GREGG THORNTON M.D. MARTIN, GORDON, M.D. [facility] Thoracic Surgery [facility] [id number] [facility] 2019-06-12 08:00:00 2019-06-12 08:00:00 Appointment; VASCULAR, SE VASCULAR, SE [facility] Thoracic [facility] [id number] [facility] 2019-05-22 11:30:00 2019-05-22 11:30:00 Appointment; GREGG THORNTON M.D. MARTIN, GORDON, M.D. [facility] Thoracic Surgery [facility] [id number] [facility] 2019-04-28 12:00:00 2019-04-28 12:00:00 Appointment; MARIAH FRANCIS M.D. CHARITAKIS, KONSTANTINOS, M.D. [place] [address] [id number] [facility] 2019-04-28 11:00:00 2019-04-28 11:00:00 Appointment; [facility], ECHO [facility] [id number] [facility] 2019-02-17 13:00:00 2019-02-17 13:00:00 Appointment; MEMO WILSON P.A. CRUZ, LETICIA, P.A. [facility] [id number] [facility] 2019-01-01 10:15:00 2019-01-01 10:15:00 Appointment; DALTON PHIPPS M.D. BYRD, MICHAEL, M.D. [facility] [id number] [facility] 2018-11-27 13:30:00 2018-11-27 13:30:00 Appointment; DALTON PHIPPS M.D. BYRD, MICHAEL, M.D. [facility] [id number] [facility] 2018-11-20 15:30:00 2018-11-20 15:30:00 Appointment; ANDREA FLORES KIMBERLY [facility] Otorhinolaryngology [facility] [id number] [facility] 2018-11-13 13:45:00 2018-11-13 13:45:00 Appointment; DALTON PHIPPS M.D. BYRD, MICHAEL, M.D. [facility] [address] [id number] [facility] 2018-11-03 10:30:00 2018-11-03 10:30:00 Appointment; CLINT GEE APRN HOANG, CHRISTINA, APRN [facility] [id number] [facility] 2018-08-12 15:00:00 2018-08-12 15:00:00 Appointment; MEMO WILSON P.A. CRUZ, LETICIA PPadmaja [facility] [id number] [facility] 2018-07-16 13:15:00 2018-07-16 13:15:00 Appointment; SCOTTY GUTIERREZ M.D. HUANG, EDDIE, M.D. [facility] [id number] [facility] 2018-06-11 13:15:00 2018-06-11 13:15:00 Appointment; SCOTTY GUTIERREZ M.D. HUANG, EDDIE, M.D. [facility] [id number] [facility] 2018-06-02 08:00:00 2018-06-02 08:00:00 Appointment; MEMO WILSON P.A. CRUZ, LETICIA PAshkanAAshkan [facility] [address] [id number] [facility] 2018-04-30 13:40:00 2018-04-30 13:40:00 Appointment; MARIAH FRANCIS M.D. CHARITAKIS, KONSTANTINOS, M.D. [facility] ulti-Specialty [address] [id number] [facility] 2018-04-29 10:45:00 2018-04-29 10:45:00 Appointment; MEMO WILSON P.A. CRUZ, LETICIA P.AAshkan [facility] [id number] [facility] 2018-02-25 14:00:00 2018-02-25 14:00:00 Appointment; MEMO WILSON P.A. CRUZ, LETICIA PAshkanAAshkan [facility] [address] [id number] [facility] 2017-10-23 13:15:00 2017-10-23 13:15:00 Appointment; MEMO WILSON P.A. CRUZ, LETICIA, P.AAshkan OCASIO [facility] [address] [id number] [facility] 2017-08-08 11:00:00 2017-08-08 11:00:00 Appointment; MEMO WILSON P.A. CRUZ, LETICIA, P.A. AMARJIT [facility] [id number] [facility] 2017-05-08 13:40:00 2017-05-08 13:40:00 Appointment; MARIAH FRANCIS M.D. CHARITAKIS, KONSTANTINOS, M.D. UTP UTP [id number] [facility] 2017-05-07 10:00:00 2017-05-07 10:00:00 Appointment; MARIAH FRANCIS M.D. CHARITAKIS, KONSTANTINOS, M.D. UTP UTP [id number] [facility] 2017-04-24 13:45:00 2017-04-24 13:45:00 Appointment; MEMO WILSON P.A. CRUZ, LETICIA, P.A. UTP UTP [id number] [facility] 2017-04-17 14:30:00 2017-04-17 14:30:00 Appointment; MEMO WILSON P.A. CRUZ, LETICIA, P.A. UTP UTP [id number] [facility] 2017-03-07 10:15:00 2017-03-07 10:15:00 Appointment; MEMO WILSON P.A. CRUZ, LETICIA, P.A. UTP UTP [id number] [facility] 2017-02-12 15:45:00 2017-02-12 15:45:00 Appointment; MEMO WILSON P.A. CRUZ, LETICIA, P.A. UTP UTP [id number] [facility] 2016-12-24 10:00:00 2016-12-24 10:00:00 Appointment; MEMO WILSON P.A. CRUZ, LETICIA, P.A. UTP UTP [id number] [facility] 2016-12-12 11:00:00 2016-12-12 11:00:00 Appointment; MEMO WILSON P.A. CRUZ, LETICIA, P.A. UTP UTP [id number] [facility] 2016-11-02 13:40:00 2016-11-02 13:40:00 Appointment; MARIAH FRANCIS M.D. CHARITAKIS, KONSTANTINOS, M.D. UTP UTP [id number] [facility] 2016-10-17 15:40:00 2016-10-17 15:40:00 Appointment; MARIAH FRANCIS M.D. CHARITAKIS, KONSTANTINOS, M.D. UTP UTP [id number] [facility] 2016-10-17 13:00:00 2016-10-17 13:00:00 Appointment; [place], N UCLEAR [place]-MS, NUCLEAR UTP UTP [id number] [facility] 2016-10-15 14:00:00 2016-10-15 14:00:00 Appointment; MEMO WILSON P.A. CRUZ, LETICIA, PAshkanAAshkan UTP UTP [id number] [facility] 2016-10-09 10:00:00 2016-10-09 10:00:00 Appointment; MARIAH FRANCIS M.D. CHARITAKIS, KONSTANTINOS, M.D. UTP UTP [id number] [facility] 2016-10-05 10:00:00 2016-10-05 10:00:00 Appointment; [place]-MS, E CHO [place]-MS, ECHO UTP UTP [id number] [facility] 2016-08-06 14:45:00 2016-08-06 14:45:00 Appointment; MEMO WILSON P.A. CRUZ, LETICIA, P.AAshkan UTP UTP [id number] [facility] 2016-05-09 13:00:00 2016-05-09 13:00:00 Appointment; MEMO WILSON P.A. CRUZ, LETICIA, P.A. UTP UTP [id number] [facility] 2016-05-02 11:00:00 2016-05-02 11:00:00 Appointment; MEMO WILSON P.A. CRUZ, LETICIA, P.A. UTP UTP [id number] [facility] 2016-04-04 08:30:00 2016-04-04 08:30:00 Appointment; MEMO WILSON P.A. CRUZ, LETICIA, P.A. UTP UTP [id number] [facility] 2016-03-26 13:45:00 2016-03-26 13:45:00 Appointment; LIUDMILA FAGAN P.A. CAMPOS, BERTHA P.A. UTP UTP [id number] [facility] 2016-01-31 09:30:00 2016-01-31 09:30:00 Appointment; MEMO WILSON P.A. CRUZ, LETICIA, P.A. UTP UTP [id number] [facility] 2015-12-15 10:30:00 2015-12-15 10:30:00 Appointment; MEMO WILSON P.A. CRUZ, LETICIA, P.A. UTP UTP [id number] [facility] 2015-12-01 10:30:00 2015-12-01 10:30:00 Appointment; MEMO WILSON P.A. CRUZ, LETICIA, P.A. UTP UTP [id number] [facility] 2015-10-26 13:15:00 2015-10-26 13:15:00 Appointment; MEMO WILSON P.A. CRUZ, LETICIA, P.A. UTP UTP [id number] [facility] 2015-10-12 17:00:00 2015-10-12 17:00:00 Appointment; MARIAH FRANCIS M.D. CHARITAKIS, KONSTANTINOS, M.D. UTP UTP [id number] [facility] 2015-09-22 14:15:00 2015-09-22 14:15:00 Appointment; MEMO WILSON P.A. CRUZ, LETICIA, P.A. UTP UTP [id number] [facility] 2015-09-21 13:45:00 2015-09-21 13:45:00 Appointment; SCOTTY GUTIERREZ M.D. HUANG, EDDIE, M.D. UTP UTP [id number] [facility] 2015-09-15 14:00:00 2015-09-15 14:00:00 Appointment; MEMO WILSON P.A. CRUZ, LETICIA P.A. UTP UTP [id number] [facility] 2015-09-08 08:00:00 2015-09-08 08:00:00 Appointment; [facility] [facility], ECHO UTP UTP [id number] [facility] 2015-09-05 13:15:00 2015-09-05 13:15:00 Appointment; MEMO WILSON P.A. CRUZ, LETICIA P.AAshkan UTP UTP [id number] [facility] 2015-08-31 09:15:00 2015-08-31 09:15:00 Appointment; MEMO WILSON P.A. CRUZ, LETICIA P.A. UTP UTP [id number] [facility] 2015-08-11 15:15:00 2015-08-11 15:15:00 Appointment; MEMO WILSON P.A. CRUZ, LETICIA, P.A. UTP UTP [id number] [facility] 2013-08-26 10:36:39 2013-08-26 10:36:39 [id number] 2013-05-13 16:47:30 2013-05-13 16:47:29 Outpatient KENNETH KENNETH [id number] 2013-02-24 06:46:55 2013-02-24 06:46:35 [facility] [id number] Results Test Description Test Time Test Comments Results Result Comments Source [O] Urine Dipstick (In Office) 2019-12-04 14:15:00 Test Item Glucose (test code = Glucose) normal N LEUKOCYTES (test code = LEUKOCYTES) neg N NITRITE; Normal (test code = 02717-1) neg N UROBILINOGEN; Normal (test code = 44911-0) neg N PROTEIN (test code = 92404-7) trace pH (test code = pH) 5 URINE BLOOD; Normal (test code = 15382-7) neg N SPECIFIC GRAVITY (test code = 2965-2) 1.015 KETONES; Normal (test code = 58528-3) neg N BILIRUBIN; Normal (test code = 83361-9) neg N COLOR URINE; Normal (test code = 5778-6) yellow N APPEARANCE; Normal (test code = 5767-9) clear N [facility][O] Streptococcus Test Rapid (In Office)2019-08-03 14:14:00* Test Item Value Reference Range Interpretation Comments Group A Strep Screen; Normal (test code = 84955-3) neg N [facility] PhysiciansSCR MAMM BILATERAL IRMA CAD [id number] 11:11:45 - SCR MAMM BILATERAL IRMA CAD DIGITALBILATERAL DIGITAL SCREENING MAMMOGRAM 3D/2D WITH CAD: 03/16/2019CLINICAL: Asymptomatic. Digital breast tomosynthesis was performed in addition to routine CC and MLO views. Current mammographic images were evaluated by either a [employer] M-Vu or a [employer] ImageChecker CAD (computer aided detection system). Comparison is made to exams dated 03/06/2018 mammogram, 02/25/2017 mammogram, 02/24/2016 mammogram, 02/10/2015 mammogram, and 02/08/2014 mammogram - [facility]. There are scattered fibroglandular tissues in both breasts. No suspicious mass, architectural distortion, malignant type calcification, or lymph node abnormality detected. Breast architecture is stable compared to prior exams.IMPRESSION: NEGATIVEThere is no mammographic evidence of malignancy. Resume annual screening mammography in one year. Osiris Garcia M.D. dm/penrad:03/16/2019 11:11:45 copy to: Neptali Mccurdy MD, ph: [phone], fax: [phone] Technologist: Criss SILVA, [facility] [place]letter sent: BIRADS 1-2 Normal Mammogram BI-RADS: 1 Negative[QH] LIPID PANEL WITH REFLEX TO DIRECT [id number] 09:47:00* Test Item Value Reference Range Interpretation Comments CHOLESTEROL, TOTAL; Normal (test code = 2093-3) 132 mg/dl <200 N HDL CHOLESTEROL; Below Low Threshold (test code = 2085-9) 48 mg/dl >50 TRIGLYCERIDES; Above High Threshold (test code = 2571-8) 163 mg/dl <150 LDL-CHOLESTEROL; Normal (test code = 25146-8) 60 {MG/DL PERRI} N Reference range: <100 Desirable range <100 mg/dL for primary prevention; <70 mg/dL for patients with CHD or diabetic patients with > or = 2 CHD risk factors. LDL-C is now calculated using the Amador-Jansen calculation, which is a validated novel method providing better accuracy than the Friedewald equation in the estimation of LDL-C. Amador SS et al. CHAPITO. 2013;310(19): 5505-8628 (http ://education.[employer]/faq/WKD971) CHOL/HDLC RATIO (test code = CHOL/HDLC RATIO) 2.8 {CALC} <5.0 N NON HDL CHOLESTEROL (test code = NON HDL CHOLESTEROL) 84 {MG/DL CA L} <130 N For patients with diabetes plus 1 major ASCVD risk factor, treating to a non-HDL-C goal of <100 mg/dL (LDL-C of <70 mg/dL) is considered a therapeutic option. [facility]] CMP W/[id number] 09:47:00* Test Item Value Reference Range Interpretation Comments GLUCOSE; Normal (test code = 1547-9) 88 mg/dl 65-99 N Fasting reference interval UREA NITROGEN (BUN) (test code = UREA NITROGEN (BUN)) 17 mg/dl 7-25 N CREATININE (test code = CREATININE) 0.69 mg/dl 0.60-0.93 N For patients >49 years of age, the reference limitfor Creatinine is approximately 13% higher for peopleidentified as -Hungarian. eGFR NON- (test code = eGFR NON-ANISHA N HONDURAN) 88 {ML/MIN/1.7} > OR = 60 N eGFR (test code = eGFR ) 10 2 {ML/MIN/1.7} > OR = 60 N BUN/CREATININE RATIO (test code = BUN/CREATININE RATIO) NOT APPLICA BLE 6-22 SODIUM (test code = SODIUM) 138 mmol/L 135-146 N POTASSIUM (test code = POTASSIUM) 4.4 mmol/L 3.5-5.3 N CHLORIDE (test code = CHLORIDE) 105 mmol/L 98-110 N CARBON DIOXIDE (test code = CARBON DIOXIDE) 24 mmol/L 20-32 N CALCIUM (test code = CALCIUM) 9.0 mg/dl 8.6-10.4 N PROTEIN, TOTAL (test code = PROTEIN, TOTAL) 6.3 g/dl 6.1-8.1 N ALBUMIN (test code = ALBUMIN) 3.8 g/dl 3.6-5.1 N GLOBULIN (test code = GLOBULIN) 2.5 {G/DL CALC} 1.9-3.7 N ALBUMIN/GLOBULIN RATIO (test code = ALBUMIN/GLOBULIN RATIO) 1.5 {CALC} 1.0-2.5 N BILIRUBIN, TOTAL; Normal (test code = 49270-1) 0.2 mg/dl 0.2-1.2 N ALKALINE PHSPHATASE (test code = ALKALINE PHSPHATASE) 71 u/l 33-130 N AST; Normal (test code = 1916-6) 15 u/l 10-35 N ALT; Normal (test code = 1742-6) 7 u/l 6-29 N [facility]] CBC (INCLUDES DIFF/PLT)2019-02-18 09:47:00* Test Item Value Reference Range Interpretation Comments WHITE BLOOD CELL COUNT (test code = WHITE BLOOD CELL COUNT) 8.9 {Thousand/u} 3.8-10.8 N RED BLOOD CELL COUNT (test code = RED BLOOD CELL COUNT) 4.06 {Million/uL} 3.80-5.10 N HEMAGLOBIN; Below Low Threshold (test code = 05828-2) 11.6 g/dl 11.7-15.5 HEMATOCRIT; Normal (test code = 4544-3) 36.7 % 35.0-45.0 N MCV; Normal (test code = 787-2) 90.4 fL 80.0-100.0 N MCHC; Below Low Threshold (test code = 38377-3) 31.6 g/dl 32.0-3 6.0 N RDW; Normal (test code = 788-0) 14.4 % 11.0-15.0 N PLATELET COUNT; Normal (test code = 777-3) 262 {Thousand/u} 140-400 N MPV; Normal (test code = 48217-4) 9.6 fL 7.5-12.5 N ABSOLUTE NEUTROPHILS (test code = ABSOLUTE NEUTROPHILS) 6052 {cells/uL} 1454-2642 N ABSOLUTE LYMPHOCYTES (test code = ABSOLUTE LYMPHOCYTES) 1860 {cells/uL} 850-3900 N ABSOLUTE MONOCYTES (test code = ABSOLUTE MONOCYTES) 694 {cells/uL} 200-950 N ABSOLUTE EOSINOPHILS (test code = ABSOLUTE EOSINOPHILS) 258 {cells/ uL} 15-500 N ABSOLUTE BASOPHILS (test code = ABSOLUTE BASOPHILS) 36 {cells/uL} 0 -200 N NEUTROPHILS (test code = NEUTROPHILS) 68 % N LYMPHOCYTES (test code = LYMPHOCYTES) 20.9 % N MONOCYTES; Normal (test code = 04830-0) 7.8 % N EOSINOPHILS; Normal (test code = 79707-5) 2.9 % N BASOPHILS; Normal (test code = 75321-1) 0.4 % N [facility]] TSH, 3RD GENERATION W/REFLEX TO FT4 2019-02-18 09:47:00* Test Item Value Reference Range Interpretation Comments TSH, 3RD GENERATION W/REFLEX TO FT4 (rebeka t code = TSH, 3RD GENERATION W/REFLEX TO FT4) 3.92 {MIU/L} 0.40-4.50 N [facility]] VITAMIN D, 25-HYDROXY, LC/MS/[id number] 09:47:00* Test Item Value Reference Range Interpretation Comments VITAMIN D,25-OH,TOTAL,IA (test code = VITAMIN D,25-OH,TOTAL,IA) 34 ng/ml 30-100 N Vitamin D Status 25-OH Vitamin D : Deficiency: <20 ng/mLInsufficiency: 20 - 29 ng/mLOptimal: > or = 30 ng/mL For 25-OH Vitamin D testing on patients on D2-supplementation and patients for whom quantitation of D2 and D3 fractions is required, the QuestAssureD(TM)25-OH VIT D, (D2,D3), LC/MS/MS is recommended: order code 66381 (patients >2yrs). For more information on this test, go to:http://education.[employer]/faq/ZQD712(This link is being provided for informational/educational purposes only.) [facility]] HEMOGLOBIN [id number] 09:47:00* Test Item Value Reference Range Interpretation Comments HEMOGLOBIN A1c; Above High Threshold (test code = 4548-4) 5.7 {% of total} <5.7 For someone without known diabetes, a he moglobin A1c value between 5.7% and 6.4% is consistent withprediabetes and should be confirmed with a follow-up test. For someone with known diabetes, a value <7%indicates that their diabetes is well controlled. D3imouwcde should be individualized based on duration ofdiabetes, age, comorbid conditions, and otherconsiderations. This assay result is consistent with an increased riskof diabetes. Currently, no consensus exists regarding use ofhemoglobin A1c for diagnosis of diabetes for children. [facility][O] Urine Dipstick (In Office)2018-08-12 15:25:00 * Test Item Value Reference Range Interpretation Comments Glucose (test code = Glucose) neg N LEUKOCYTES (test code = LEUKOCYTES) + NITRITE; Normal (test code = 18767-9) neg N UROBILINOGEN; Normal (test code = 90942-4) neg N PROTEIN (test code = 45954-5) trace pH (test code = pH) 5 URINE BLOOD (test code = 36306-9) trace SPECIFIC GRAVITY (test code = 2965-2) 1.015 KETONES; Normal (test code = 87366-9) neg N BILIRUBIN; Normal (test code = 45634-9) neg N COLOR URINE; Normal (test code = 5778-6) yellow N APPEARANCE; Normal (test code = 5767-9) clear N [facility]] LIPID PANEL WITH REFLEX TO DIRECT LDL 2018-07-10 10:20:00* Test Item Value Reference Range Interpretation Comments CHOLESTEROL, TOTAL; Normal (test code = 2093-3) 152 mg/dl <200 N HDL CHOLESTEROL; Normal (test code = 2085-9) 57 mg/dl >50 N TRIGLYCERIDES; Normal (test code = 2571-8) 146 mg/dl <150 N LDL-CHOLESTEROL; Normal (test code = 02282-1) 72 {MG/DL PERRI} N Reference range: <100 Desirable range <100 mg/dL for primary prevention; <70 mg/dL for patients with CHD or diabetic patients with > or = 2 CHD risk factors. LDL-C is now calculated using the Amador-Justyna calculation, which is a validated novel method providing better accuracy than the Friedewald equation in the estimation of LDL-C. Amador SS et al. CHAPITO. 2013;310(19): 4657-6362 (http ://education.[employer]/faq/BMD012) CHOL/HDLC RATIO (test code = CHOL/HDLC RATIO) 2.7 {CALC} <5.0 N NON HDL CHOLESTEROL (test code = NON HDL CHOLESTEROL) 95 {MG/DL CA L} <130 N For patients with diabetes plus 1 major ASCVD risk factor, treating to a non-HDL-C goal of <100 mg/dL (LDL-C of <70 mg/dL) is considered a therapeutic option. [facility]] CMP [id number] 10:20:00* Test Item Value Reference Range Interpretation Comments GLUCOSE; Normal (test code = 1547-9) 95 mg/dl 65-99 N Fasting reference interval UREA NITROGEN (BUN) (test code = UREA NITROGEN (BUN)) 18 mg/dl 7-25 N CREATININE (test code = CREATININE) 0.65 mg/dl 0.50-0.99 N For patients >49 years of age, the reference limitfor Creatinine is approximately 13% higher for peopleidentified as -Hungarian. eGFR NON- (test code = eGFR NON-ANISHA N HONDURAN) 91 {ML/MIN/1.7} > OR = 60 N eGFR (test code = eGFR ) 10 5 {ML/MIN/1.7} > OR = 60 N BUN/CREATININE RATIO (test code = BUN/CREATININE RATIO) NOT APPLICA BLE 6-22 SODIUM (test code = SODIUM) 140 mmol/L 135-146 N POTASSIUM (test code = POTASSIUM) 4.8 mmol/L 3.5-5.3 N CHLORIDE (test code = CHLORIDE) 105 mmol/L 98-110 N CARBON DIOXIDE (test code = CARBON DIOXIDE) 25 mmol/L 20-32 N CALCIUM (test code = CALCIUM) 9.2 mg/dl 8.6-10.4 N PROTEIN, TOTAL (test code = PROTEIN, TOTAL) 6.2 g/dl 6.1-8.1 N ALBUMIN (test code = ALBUMIN) 3.8 g/dl 3.6-5.1 N GLOBULIN (test code = GLOBULIN) 2.4 {G/DL CALC} 1.9-3.7 N ALBUMIN/GLOBULIN RATIO (test code = ALBUMIN/GLOBULIN RATIO) 1.6 {CALC} 1.0-2.5 N BILIRUBIN, TOTAL; Normal (test code = 88585-6) 0.3 mg/dl 0.2-1.2 N ALKALINE PHSPHATASE (test code = ALKALINE PHSPHATASE) 71 u/l 33-130 N AST; Normal (test code = 1916-6) 13 u/l 10-35 N ALT; Normal (test code = 1742-6) 7 u/l 6-29 N [facility]] CBC (INCLUDES DIFF/PLT)2018-07-10 10:20:00* Test Item Value Reference Range Interpretation Comments WHITE BLOOD CELL COUNT (test code = WHITE BLOOD CELL COUNT) 7.7 {Thousand/u} 3.8-10.8 N RED BLOOD CELL COUNT (test code = RED BLOOD CELL COUNT) 3.98 {Million/uL} 3.80-5.10 N HEMAGLOBIN; Below Low Threshold (test code = 70152-0) 11.6 g/dl 11.7-15.5 HEMATOCRIT; Normal (test code = 4544-3) 35.3 % 35.0-45.0 N MCV; Normal (test code = 787-2) 88.7 fL 80.0-100.0 N MCHC; Normal (test code = 77350-2) 32.9 g/dl 32.0-36.0 N RDW; Normal (test code = 788-0) 13.5 % 11.0-15.0 N PLATELET COUNT; Normal (test code = 777-3) 292 {Thousand/u} 140-400 N MPV; Normal (test code = 95284-5) 9.9 fL 7.5-12.5 N ABSOLUTE NEUTROPHILS (test code = ABSOLUTE NEUTROPHILS) 5082 {cells/uL} 7682-1153 N ABSOLUTE LYMPHOCYTES (test code = ABSOLUTE LYMPHOCYTES) 1748 {cells/uL} 850-3900 N ABSOLUTE MONOCYTES (test code = ABSOLUTE MONOCYTES) 539 {cells/uL} 200-950 N ABSOLUTE EOSINOPHILS (test code = ABSOLUTE EOSINOPHILS) 300 {cells/ uL} 15-500 N ABSOLUTE BASOPHILS (test code = ABSOLUTE BASOPHILS) 31 {cells/uL} 0 -200 N NEUTROPHILS (test code = NEUTROPHILS) 66 % N LYMPHOCYTES (test code = LYMPHOCYTES) 22.7 % N MONOCYTES; Normal (test code = 57064-0) 7.0 % N EOSINOPHILS; Normal (test code = 10158-7) 3.9 % N BASOPHILS; Normal (test code = 64947-0) 0.4 % N [facility]] TSH, 3RD GENERATION W/REFLEX TO FT4 2018-07-10 10:20:00* Test Item Value Reference Range Interpretation Comments TSH, 3RD GENERATION W/REFLEX TO FT4 (rebeka t code = TSH, 3RD GENERATION W/REFLEX TO FT4) 2.92 {MIU/L} 0.40-4.50 N [facility] VITAMIN D, 25-HYDROXY, LC/MS/[id number] 10:20:00* Test Item Value Reference Range Interpretation Comments VITAMIN D,25-OH,TOTAL,IA (test code = VITAMIN D,25-OH,TOTAL,IA) 31 ng/ml 30-100 N Vitamin D Status 25-OH Vitamin D : Deficiency: <20 ng/mLInsufficiency: 20 - 29 ng/mLOptimal: > or = 30 ng/mL For 25-OH Vitamin D testing on patients on D2-supplementation and patients for whom quantitation of D2 and D3 fractions is required, the QuestAssureD(TM)25-OH VIT D, (D2,D3), LC/MS/MS is recommended: order code 45161 (patients >2yrs). For more information on this test, go to:http://education.[employer]/faq/ELJ080(This link is being provided for informational/educational purposes only.) [facility]] HEMOGLOBIN [id number] 10:20:00* Test Item Value Reference Range Interpretation Comments HEMOGLOBIN A1c; Normal (test code = 4548-4) 5.6 {% of total} <5.7 N For the purpose of screening for the presence ofdiabetes: <5.7% Consistent with the absence of diabetes5.7-6.4% Consistent with increased risk for diabetes (prediabetes)> or =6.5% Consistent with diabetes This assay result is consistent with a decreased riskof diabetes. Currently, no consensus exists regarding use ofhemoglobin A1c for diagnosis of diabetes in children. According to [place] [employer] (ADA)guidelines, hemoglobin A1c <7.0% represents optimalcontrol in non- diabetic patients. Differentmetrics may apply to specific patient populations. Standards of Medical Care in Diabetes(ADA). [facility] K[facility] [id number] 11:47:00EXAM: XR RIGHT KNEE 3 VIEWSDATE: 04/29/2018 11:47 AM CDTINDICATION: - M25.561 Pain in right kneeCOMPARISON: None.TECHNIQUE: 3 views of the kneeFINDINGS: No acute fracture or malalignment is identified. The joint spacesare preserved. There is a small intra-articular osseous body in the lateralcompartment of the knee.No knee joint effusion is present. No soft tissue abnormality is identified.IMP RESSION: No acute osseous abnormality.--This report was dictated by a Tower Equipment Installer/Fellow. I have personallyreviewed the images aswell as the Resident's interpretation and agree with the findings.Read by: Wanda Barrett MD Resident: Wanda BarrettMDDictated Date/time: 04/29/18 13:31E lectronically Signed by: Chetan Sidhu MD 04/29/1818:3 2FIN[facility]Un[facility][] LIPID PANEL WITH REFLEX TO DIRECT [id number] 08:59:00* Test Item Value Reference Range Interpretation Comments CHOLESTEROL, TOTAL; Normal (test code = 2093-3) 164 mg/dl <200 N HDL CHOLESTEROL; Normal (test code = 2085-9) 51 mg/dl >50 N TRIGLYCERIDES; Above High Threshold (test code = 2571-8) 169 mg/dl <150 LDL-CHOLESTEROL; Normal (test code = 08067-9) 86 {MG/DL PERRI} N Reference range: <100 Desirable range <100 mg/dL for primary prevention; <70 mg/dL for patients with CHD or diabetic patients with > or = 2 CHD risk factors. LDL-C is now calculated using the Bettye calculation, which is a validated novel method providing better accuracy than the Friedewald equation in the estimation of LDL-C. Amador BALDERAS et al. CHAPITO. 2013;310(19): 5278-5356 (http ://education.[employer]/faq/LDF731) CHOL/HDLC RATIO (test code = CHOL/HDLC RATIO) 3.2 {CALC} <5.0 N NON HDL CHOLESTEROL (test code = NON HDL CHOLESTEROL) 113 {MG/DL C AL} <130 N For patients with diabetes plus 1 major ASCVD risk factor, treating to a non-HDL-C goal of <100 mg/dL (LDL-C of <70 mg/dL) is considered a therapeutic option. [facility]] CMP W/[id number] 08:59:00* Test Item Value Reference Range Interpretation Comments GLUCOSE; Normal (test code = 1547-9) 87 mg/dl 65-99 N Fasting reference interval UREA NITROGEN (BUN) (test code = UREA NITROGEN (BUN)) 14 mg/dl 7-25 N CREATININE (test code = CREATININE) 0.67 mg/dl 0.50-0.99 N For patients >49 years of age, the reference limitfor Creatinine is approximately 13% higher for peopleidentified as -Hungarian. eGFR NON- (test code = eGFR NON-ANISHA N HONDURAN) 90 {ML/MIN/1.7} > OR = 60 N eGFR (test code = eGFR ) 10 4 {ML/MIN/1.7} > OR = 60 N BUN/CREATININE RATIO (test code = BUN/CREATININE RATIO) NOT APPLICA BLE 6-22 SODIUM (test code = SODIUM) 141 mmol/L 135-146 N POTASSIUM (test code = POTASSIUM) 4.6 mmol/L 3.5-5.3 N CHLORIDE (test code = CHLORIDE) 104 mmol/L 98-110 N CARBON DIOXIDE (test code = CARBON DIOXIDE) 25 mmol/L 20-32 N CALCIUM (test code = CALCIUM) 9.0 mg/dl 8.6-10.4 N PROTEIN, TOTAL (test code = PROTEIN, TOTAL) 6.3 g/dl 6.1-8.1 N ALBUMIN (test code = ALBUMIN) 3.9 g/dl 3.6-5.1 N GLOBULIN (test code = GLOBULIN) 2.4 {G/DL CALC} 1.9-3.7 N ALBUMIN/GLOBULIN RATIO (test code = ALBUMIN/GLOBULIN RATIO) 1.6 {CALC} 1.0-2.5 N BILIRUBIN, TOTAL; Normal (test code = 69155-3) 0.3 mg/dl 0.2-1.2 N ALKALINE PHSPHATASE (test code = ALKALINE PHSPHATASE) 77 u/l 33-130 N AST; Normal (test code = 1916-6) 16 u/l 10-35 N ALT; Normal (test code = 1742-6) 9 u/l 6-29 N [facility]] CBC (INCLUDES DIFF/PLT)2018-02-27 08:59:00* Test Item Value Reference Range Interpretation Comments WHITE BLOOD CELL COUNT (test code = WHITE BLOOD CELL COUNT) 8.8 {Thousand/u} 3.8-10.8 N RED BLOOD CELL COUNT (test code = RED BLOOD CELL COUNT) 4.23 {Million/uL} 3.80-5.10 N HEMAGLOBIN; Normal (test code = 65193-0) 12.2 g/dl 11.7-15.5 N HEMATOCRIT; Normal (test code = 4544-3) 37.0 % 35.0-45.0 N MCV; Normal (test code = 787-2) 87.5 fL 80.0-100.0 N MCHC; Normal (test code = 93162-4) 33.0 g/dl 32.0-36.0 N RDW; Normal (test code = 788-0) 13.7 % 11.0-15.0 N PLATELET COUNT; Normal (test code = 777-3) 281 {Thousand/u} 140-400 N MPV; Normal (test code = 93303-6) 9.8 fL 7.5-12.5 N ABSOLUTE NEUTROPHILS (test code = ABSOLUTE NEUTROPHILS) 5509 {cells/uL} 1066-4039 N ABSOLUTE LYMPHOCYTES (test code = ABSOLUTE LYMPHOCYTES) 2350 {cells/uL} 850-3900 N ABSOLUTE MONOCYTES (test code = ABSOLUTE MONOCYTES) 607 {cells/uL} 200-950 N ABSOLUTE EOSINOPHILS (test code = ABSOLUTE EOSINOPHILS) 290 {cells/ uL} 15-500 N ABSOLUTE BASOPHILS (test code = ABSOLUTE BASOPHILS) 44 {cells/uL} 0 -200 N NEUTROPHILS (test code = NEUTROPHILS) 62.6 % N LYMPHOCYTES (test code = LYMPHOCYTES) 26.7 % N MONOCYTES; Normal (test code = 83299-9) 6.9 % N EOSINOPHILS; Normal (test code = 76152-4) 3.3 % N BASOPHILS; Normal (test code = 29307-5) 0.5 % N [facility]] TSH, 3RD GENERATION W/REFLEX TO FT4 2018-02-27 08:59:00* Test Item Value Reference Range Interpretation Comments TSH, 3RD GENERATION W/REFLEX TO FT4 (rebeka t code = TSH, 3RD GENERATION W/REFLEX TO FT4) 3.32 {MIU/L} 0.40-4.50 N [facility]] VITAMIN D, 25-HYDROXY, LC/MS/[id number] 08:59:00* Test Item Value Reference Range Interpretation Comments VITAMIN D,25-OH,TOTAL,IA (test code = VITAMIN D,25-OH,TOTAL,IA) 24 ng/ml 30-100 Vitamin D Status 25-OH Vitamin D : Deficiency: <20 ng/mLInsufficiency: 20 - 29 ng/mLOptimal: > or = 30 ng/mL For 25-OH Vitamin D testing on patients on D2-supplementation and patients for whom quantitation of D2 and D3 fractions is required, the QuestAssureD(TM)25-OH VIT D, (D2,D3), LC/MS/MS is recommended: order code 74515 (patients >2yrs). For more information on this test, go to:http://education.[employer]/faq/LOE190(This link is being provided for informational/educational purposes only.) [facility]] HEMOGLOBIN [id number] 08:59:00* Test Item Value Reference Range Interpretation Comments HEMOGLOBIN A1c; Normal (test code = 4548-4) 5.5 {% of total} <5.7 N For the purpose of screening for the presence ofdiabetes: <5.7% Consistent with the absence of diabetes5.7-6.4% Consistent with increased risk for diabetes (prediabetes)> or =6.5% Consistent with diabetes This assay result is consistent with a decreased riskof diabetes. Currently, no consensus exists regarding use ofhemoglobin A1c for diagnosis of diabetes in children. According to [place] [employer] (ADA)guidelines, hemoglobin A1c <7.0% represents optimalcontrol in non- diabetic patients. Differentmetrics may apply to specific patient populations. Standards of Medical Care in Diabetes(ADA). [facility][O] Urine Dipstick (In Office)2018-02-25 14:14:00 * Test Item Value Reference Range Interpretation Comments Glucose (test code = Glucose) normal N LEUKOCYTES (test code = LEUKOCYTES) + NITRITE; Normal (test code = 76891-1) neg N UROBILINOGEN; Normal (test code = 73572-8) neg N PROTEIN (test code = 70492-7) trace pH (test code = pH) 5 URINE BLOOD (test code = 51284-9) about 50 SPECIFIC GRAVITY (test code = 2965-2) 1.020 KETONES; Normal (test code = 80935-6) neg N BILIRUBIN; Normal (test code = 82169-9) neg N COLOR URINE; Normal (test code = 5778-6) yellow N APPEARANCE; Normal (test code = 5767-9) clear N [facility]] CULTURE, URINE, [id number] 00:00:00* Test Item Value Reference Range Interpretation Comments CULTURE (test code = CULTURE) See Comment A CULTURE, URINE, ROUTINE MICRO NUMBER: [id number] TEST STATUS: FINAL SPECIMEN SOURCE: URINE SPECIMEN QUALITY: ADEQUATE RESULT: 10,000-50,000 CFU/mL of Streptococcus viridans group May represent colonizers from external and internal genitalia. No further testing (including susceptibility) will be performed. COMMENT: Additional organism(s) less than 10,000 CFU/mL isolated. These organisms, commonly found on external and internal genitalia, are considered colonizers. No further testing performed. [facility]
--- OUTSIDE RECORDS SUMMARY | 2020-02-21 00:41 | XMS REPORT | Summary of Care ---
Author Author [facility] Address [address] [place] [address] Phone Unavailable Care Team Providers Care Bowling Ball Engraver Name Role Phone KATIE Latham, MEMO Unavailable Unavailable CROW King, ARIC Unavailable Unavailab Adolph ALLEN [place], CAT CACERES Unavailable Unavailable HILLARY ALLEN [place], GREGG ORTEGA Unavailable Unavailable KATIE ALFARO, MEMO Unavailable Unavailable MAVERICK ALLEN [place], ROSARIO Coyle Unavailable Unavailable GERARD ULLOA, ISABELLE Maloney Unavailable Unavailable MOISE ALLEN, DALTON Llamas Unavailable Unavailable VIOLET King, CAT Unavailable Unavailable Crow ALLEN, Aric Unavailable Unavailable Unavailable Unavailable Functional Status Name Dates Details Functional status health issues are not documented Status: Name Dates Details Cognitive status health issues are not d ocumented Status: Problems Name Dates Details Rheumatoid arthritis (714.0, M06.9) Status: Active Acute UTI (599.0, N39.0) Status: Active Atrophic vaginitis (627.3, N95.2) Status: Active Need for influenza vaccination (V04.81, Z23) Status: Active Dizziness (780.4, R42) Status: Active Arthritis of knee, 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, M17.11 ) Status: Active Otalgia of both ears (388.70, H92.03) Status: Active Bilateral hearing loss (389.9, H91.93) Status: Active 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, 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) Status: Active Left leg pain (729.5, M79.605) Status: Active Stasis edema of left lower extremity (45 9.30, I87.302) Status: Active Chronic venous insufficiency (459.81, I8 7.2) Status: Active Edema (782.3, R60.9) Status: Active Depression screening negative (V79.0, Z1 3.31) Status: Active Acute bronchitis, viral (466.0, J20.8) Status: Active Otitis, serous (381.4, H65.90) Status: Active Sore throat (462, J02.9) Status: Active Adult BMI 40.0-44.9 kg/sq m (V85.41, Z68 .41) Status: Active Lymphedema (457.1, I89.0) Status: Active Lower extremity edema (782.3, R60.0) Status: Active Essential (primary) hypertension (401.9, I10) Status: Active Hyperlipidemia (272.4, E78.5) Status: Active Hypothyroidism (244.9, E03.9) Status: Active Acute bacterial bronchitis (466.0, J20.8 ) Status: Active Prediabetes (790.29, R73.03) Status: Active Acute otitis media (382.9, H66.90) Status: Active Maxillary sinusitis, acute (461.0, J01.0 0) Status: Active Otitis media, acute (382.9, H66.90) Status: Active Depression screening (V79.0, Z13.31) Status: Active Urinary incontinence (788.30, R32) Status: Active Advance directive discussed with patient (V65.49, Z71.89) Status: Active At risk for change in mental status (V15 .89, Z91.89) Status: Active Right knee pain (719.46, M25.561) Status: Active Vitamin D deficiency (268.9, E55.9) Status: Active Hematuria (599.70, R31.9) Status: Active Cellulitis of left lower extremity (682. 6, L03.116) Status: Active Abnormal glucose measurement (790.29, R7 3.09) Status: Active Osteoporosis screening (V82.81, Z13.820) Status: Active Post-menopausal (V49.81, Z78.0) Status: Active Breast cancer screening (V76.10, Z12.39) Status: Active Acute frontal sinusitis (461.1, J01.10) Status: Active Medicare annual wellness visit, subseque nt (V70.0, Z00.00) Status: Active At moderate risk for fall (V15.88, Z91.8 1) Status: Active Encounter for mini-mental status examina tion Status: Active Hypokalemia (276.8, E87.6) Status: Active Allergic rhinitis (477.9, J30.9) Status: Active Fall in home, sequela (909.4, W19.XXXS) Status: Active Thumb pain, left (729.5, M79.645) Status: Active Left renal mass (593.9, N28.89) Status: Active Skin candidiasis (112.3, B37.2) Status: Active Acute streptococcal pharyngitis (034.0, J02.0) Status: Active Unstable angina (411.1, I20.0) Status: Active Pressure in chest (786.59, R07.89) Status: Active Fatigue (780.79, R53.83) Status: Active Allergic reaction to drug (995.27, T78.4 0XA) Status: Active Flu vaccine need (V04.81, Z23) Status: Active Impaired fasting glucose (790.21, R73.01 ) Status: Active Motion sickness (994.6, T75.3XXA) Status: Active Acute bronchitis (466.0, J20.9) Status: Active Bilateral leg edema (782.3, R60.0) Status: Active Localized osteoarthrosis of left hip (71 5.35, M16.12) Status: Active Tear of cartilage of left knee (836.2, S 83.207A) Status: Active Munroe cyst, 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, M71.22) Status: Active Tear of meniscus of left knee (836.2, S8 3.207A) Status: Active Soft tissue lesion of knee region (729.9 9, M79.89) Status: Active Left knee pain (719.46, M25.562) Status: Active Post-menopausal osteoporosis (733.01, M8 1.0) Status: Active Elevated sed rate (790.1, R70.0) Status: Active Hives (708.9, L50.9) Status: Active Pharyngitis (462, J02.9) Status: Active Herpes zoster (053.9, B02.9) Status: Active Uncontrolled hypertension (401.9, I10) Status: Active High triglycerides (272.1, E78.1) Status: Active Need for pneumococcal vaccination (V03.8 2, Z23) Status: Active Need for vaccination with 13-polyvalent pneumococcal conjugate vaccine (V03.82, Z23) Status: Active Encounter for hepatitis C virus screenin g test for high risk patient (V73.89, Z11.59) Status: Active Left shoulder pain (719.41, M25.512) Status: Active Dermatitis (692.9, L30.9) Status: Active Medications Name Dates Details Doxazosin Mesylate 4 MG Oral Tablet TAKE 1 TABLET DAILY DIRECTED Quantity: 90 KATIE P.A., MEMO * Start : 28-Jan-2014 Active Levothyroxine Sodium 88 MCG Oral Tablet TAKE ONE TABLET BY MOUTH EVERY DAY DIRECTED * Quantity: 90 Refills: 1 KATIE P.A., MEMO * Start : 18-Mar-2015 Active Claudette 180 MG TABS TAKE 1 TABLET DAILY NEEDED. * Refills: 0 Active Betamethasone Dipropionate Aug 0.05 % External Ointment APPLY SPARINGLY TO AFFECTED AREA(S) TWICE DAILY * Quantity: 1 Refills: 1 KATIE P.A., MEMO * Start : 25-Feb-2018 Active 45 GM Tube Aspirin Low Dose 81 MG Oral Tablet Delayed Release TAKE 1 TABLET EVERY OTHER DAY * Refills: 0 ARIC MARIA M.D. * Start : 10-Jul-2018 Active predniSONE 10 MG Oral Tablet TAKE 1 TABLET DAILY. * Quantity: 10 Refills: 0 KATIE P.A., MEMO * Start : 03-Aug-2019 Active Tylenol CAPS PRN * Refills: 0 Active Ventolin HFA 108 (90 Base) MCG/ACT Inhalation Aerosol Solution INHALE 2 PUFFS EVERY 4 HOURS NEEDED * Quantity: 1 Refills: 1 KATIE P.A., MEMO * Start : 29-Sep-2013 Active 8 GM Inhaler amLODIPine Besylate 5 MG Oral Tablet TAKE 1 TABLET Daily NEEDS OFFICE VISIT * Quantity: 90 Refills: 3 ARIC MARIA M.D. * Start : 12-Jan-2015 Active Fluticasone Propionate 50 MCG/ACT Nasal Suspension USE 1 SPRAY IN EACH NOSTRIL TWICE A DAY * Quantity: 16 Refills: 2 KATIE P.A., MEMO * Start : 25-Oct-2017 Active Pravastatin Sodium 40 MG Oral Tablet TAKE 1 TABLET Daily NEEDS OFFICE VISIT * Quantity: 90 Refills: 1 KATIE P.A., MEMO * Start : 28-Feb-2018 Active Olmesartan Medoxomil 40 MG Oral Tablet TAKE 1 TABLET DAILY. * Quantity: 90 Refills: 1 KATIE P.A., MEMO * Start : 15-Oct-2016 Active Atenolol 50 MG Oral Tablet TAKE 1 TABLET TWICE DAILY. * Quantity: 180 Refills: 1 KATIE P.A., MEMO * Start : 21-Jul-2014 Active Allergies and Adverse Reactions Name Dates [...] Z86.69) Status: Resolved Procedures Procedure Dates Details History of Sinus Surgery Completed History of Total Abdominal Hysterectomy With Removal Of Both Ovaries Completed Immunization Name Dates Details Influenza Lot #: [id number] on: 19-May-2014 Pneumococcal polysaccharide vaccine, 23 valent Lot #: [id number] on: 09-Aug-2014 Fluzone Quadrivalent 0.5 ML Intramuscula r Suspension Prefilled Syringe Lot #: [id number] on: 02-May-2016 Prevnar 13 Intramuscular Suspension Lot #: [id number] on: 06-Aug-2016 Prevnar 13 Intramuscular Suspension Lot #: [id number] on: 06-Aug-2016 Fluzone Quadrivalent 0.5 ML Intramuscula r Suspension Lot #: [id number] on: 24-Apr-2017 Fluzone High-Dose 0.5 ML Intramuscular S uspension Prefilled Syringe Lot #: [id number] on: 29-Apr-2018 Tdap Not Administered Fluzone High-Dose 0.5 ML Intramuscular S uspension Prefilled Syringe on: 08-May-2019 Family History Name Dates Details Family history [...] Details - Status: Name Dates Details Never smoked tobacco (finding) Vital Signs Date Test Result Details No Known Vitals to report Results Date Description Value Details Results not documented Plan of Care Name Dates Details Planned Observations Planned Goals not documented Planned Encounters Appointment; MEMO WILSON P.A. On: 07-Sep-2019 13:30 Appointment; ARIC MARIA M .D. On: 30-Oct-2019 [...] documented On: 12-Aug-2018 15:00 Appointment; ISABELLE GEE APRN Encounter Diagnosis: Problem not documented On: 03-Nov-2018 10:30 Appointment; DALTON PHIPPS M.D. Encounter Diagnosis: Problem not documented On: 13-Nov-2018 13:45 Appointment; JALEESA FLORES Encounter Diagnosis: Problem not documented On: 20-Nov-2018 15:30 Appointment; DALTON PHPIPS M.D. Encounter Diagnosis: Problem not documented On: 27-Nov-2018 13:30 Appointment; DALTON PHIPPS M.D. Encounter Diagnosis: Problem not documented On: 01-Jan-2019 10:15 Appointment; MEMO WILSON P.A. Encounter Diagnosis: Problem not documented On: 17-Feb-2019 13:00 [facility]; [facility] Encounter Diagnosis: Problem not documented On: 28-Apr-2019 11:00 Appointment; ARIC MARIA M .D. Encounter Diagnosis: Problem not documented On: 28-Apr-2019 12:00 Appointment; GREGG THORNTON M.D. Encounter Diagnosis: Problem not documented On: 22-May-2019 11:30 Appointment; [facility], [facility] Encounter Diagnosis: Problem not documented On: 12-Jun-2019 8:00 Appointment; GREGG THORNTON M.D. Encounter Diagnosis: Problem not documented On: 19-Jun-2019 11:15 Appointment; MEMO WILSON P.A. Encounter Diagnosis: Problem not documented On: 03-Aug-2019 13:30 Appointment; GREGG THORNTON M.D. Encounter Diagnosis: Problem not documented On: 01-Sep-2019 9:00
--- OUTSIDE RECORDS SUMMARY | 2020-02-21 00:41 | XMS REPORT | Summary of Care ---
Author Author [facility] Address [address] [place] [address] Phone Unavailable Care Team Providers Care Utility Forester Name Role Phone KATIE Latham, MEMO Unavailable Unavailable CROW King, ARIC Unavailable Unavailab Adolph ALLEN [place], CAT CACERES Unavailable Unavailable HILLARY ALLEN [place], GREGG ORTEGA Unavailable Unavailable KATIE ALFARO, MEMO Unavailable Unavailable MAVERICK ALLEN [place], ROSARIO Coyle Unavailable Unavailable GERARD ULLOA, ISABELLE [...] Status: Active Hypokalemia (276.8, E87.6) Status: Active Medicare annual wellness visit, subseque nt (V70.0, Z00.00) Status: Active At moderate risk for fall (V15.88, Z91.8 1) Status: Active Acute frontal sinusitis (461.1, J01.10) Status: Active Encounter for mini-mental status examina tion Status: Active Abnormal glucose measurement (790.29, R7 3.09) Status: Active Breast cancer screening (V76.10, Z12.39) Status: Active Cellulitis of left lower extremity (682. 6, L03.116) Status: Active Hematuria (599.70, R31.9) Status: Active Post-menopausal (V49.81, Z78.0) Status: Active Osteoporosis screening (V82.81, Z13.820) Status: Active Atrophic vaginitis (627.3, N95.2) Status: Active Need for influenza vaccination (V04.81, Z23) Status: Active Dizziness (780.4, R42) Status: Active Vitamin D deficiency (268.9, E55.9) Status: Active Right knee pain (719.46, M25.561) Status: Active Arthritis of knee, 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, M17.11 ) Status: Active Depression screening (V79.0, Z13.31) Status: Active Advance directive discussed with patient (V65.49, Z71.89) Status: Active At risk for change in mental status (V15 .89, Z91.89) Status: Active Urinary incontinence (788.30, R32) Status: Active Otitis media, acute (382.9, H66.90) [...] Status: Active Hypothyroidism (244.9, E03.9) Status: Active Hyperlipidemia (272.4, E78.5) Status: Active Essential (primary) hypertension (401.9, I10) Status: Active Lower extremity edema (782.3, R60.0) Status: Active Lymphedema (457.1, I89.0) Status: Active Left leg pain (729.5, M79.605) Status: Active Stasis edema of left lower extremity (45 9.30, I87.302) Status: Active Adult BMI 40.0-44.9 kg/sq m (V85.41, Z68 .41) Status: Active Acute bronchitis, viral (466.0, J20.8) Status: Active Sore throat (462, J02.9) Status: Active Otitis, serous (381.4, H65.90) Status: Active Depression screening negative (V79.0, Z1 3.31) Status: Active Chronic venous insufficiency (459.81, I8 7.2) Status: Active Edema (782.3, R60.9) Status: Active Medications Name Dates Details Doxazosin Mesylate 4 MG Oral Tablet TAKE 1 TABLET DAILY DIRECTED Quantity: 90 KATIE Hernandez.Sakina.NICOLEMEMO * Start : 28-Jan-2014 Active Levothyroxine Sodium 88 MCG Oral Tablet TAKE ONE TABLET BY MOUTH EVERY DAY DIRECTED * Quantity: 90 Refills: 1 KATIE Hernandez.MEMO Das * Start : 18-Mar-2015 Active Ventolin HFA 108 (90 Base) MCG/ACT Inhalation Aerosol Solution INHALE 2 PUFFS EVERY 4 HOURS NEEDED * Quantity: 1 Refills: 1 KATIE Hernandez.MEMO Das * Start : 29-Sep-2013 Active 8 GM Inhaler Atenolol 50 MG Oral Tablet TAKE 1 TABLET TWICE DAILY. * Quantity: 180 Refills: 1 KATIE Hernandez.MEMO Das * Start : 21-Jul-2014 Active amLODIPine Besylate 5 MG Oral Tablet TAKE 1 TABLET Daily NEEDS OFFICE VISIT * Quantity: 90 Refills: 3 ARIC MARIA M.D. * Start : 12-Jan-2015 Active Fluticasone Propionate 50 MCG/ACT Nasal Suspension USE 1 SPRAY IN EACH NOSTRIL TWICE A DAY * Quantity: 16 Refills: 2 KATIE Hernandez.MEMO Das * Start : 25-Oct-2017 Active Claudette 180 MG TABS TAKE 1 TABLET DAILY NEEDED. * Refills: 0 Active Tylenol CAPS PRN * Refills: 0 Active Olmesartan Medoxomil 40 MG Oral Tablet TAKE 1 TABLET DAILY. * Quantity: 90 Refills: 1 KATIE Hernandez.MEMO Das * Start : 15-Oct-2016 Active Betamethasone Dipropionate Aug 0.05 % External Ointment APPLY SPARINGLY TO AFFECTED AREA(S) TWICE DAILY * Quantity: 1 Refills: 1 KATIE Hernandez.MEMO Das * Start : 25-Feb-2018 Active 45 GM Tube Pravastatin Sodium 40 MG Oral Tablet TAKE 1 TABLET Daily NEEDS OFFICE VISIT * Quantity: 90 Refills: 1 KATIE P.A., MEMO * Start : 28-Feb-2018 Active Aspirin Low Dose 81 MG Oral Tablet Delayed Release TAKE 1 TABLET EVERY OTHER DAY * Refills: 0 ARIC MARIA M.D. * Start : 10-Jul-2018 Active predniSONE 10 MG Oral Tablet TAKE 1 TABLET DAILY. * Quantity: 10 Refills: 0 KATIE P.A., MEMO * Start : 03-Aug-2019 Active Allergies and Adverse Reactions Name Dates [...] Immunization Name Dates Details Influenza Lot #: [id number] on: 19-May-2014 Pneumococcal polysaccharide vaccine, 23 valent Lot #: [id number] on: 09-Aug-2014 Fluzone Quadrivalent 0.5 ML Intramuscula r Suspension Prefilled Syringe Lot #: [id number] on: 02-May-2016 Prevnar 13 Intramuscular Suspension Lot #: [id number] on: 06-Aug-2016 Prevnar 13 Intramuscular Suspension Lot #: [id number] on: 06-Aug-2016 Fluzone Quadrivalent 0.5 ML Intramuscula r Suspension Lot #: [id number] on: 24-Apr-2017 Fluzone High-Dose 0.5 ML Intramuscular S uspension Prefilled Syringe Lot #: [id number] on: 29-Apr-2018 Tdap Not Administered Fluzone High-Dose [...] (finding) Vital Signs Date Test Result Details :14 Physical Findings 7 Status: Comments: PH Q-9 Adult Depression Screening :25 Systolic blood pressure 117 mm[Hg] Status: Comments : Location: LUE; Position: Sitting Diastolic blood pressure 70 mm[Hg] Status: Comment s: Location: LUE; Position: Sitting Body height 63 in Status: Weight 236 lb Status: Body mass index (BMI) [Ratio] 41.81 kg/m2 Status: Body surface area Derived from formula 2.07 m2 S tatus: Body temperature 97.9 f Status: Comments: Me thod: Temporal Heart Rate 63 /min Status: Respiratory rate 16 /min Status: Physical Findings 0 Status: Comments: Pa in Scale :24 Physical Findings 0 Status: Comments: Al cohol Screen - How many times in the past yr have you had 5 (for M) or 4 (for F) or 4 (for all > 65yrs) or more drinks in a day? Results Date Description Value Details :14 [O] Streptococcus Test Rapid (In Office) Group A Strep Screen neg (Normal) Plan of Care Name Dates Details Planned Observations Planned Goals not documented Planned Encounters Appointment; ARIC MARIA M .D. On: 30-Oct-2019 [...] Problem not documented On: 17-Feb-2019 13:00 Appointment; MORGAN ADEN Encounter Diagnosis: Problem not documented On: 28-Apr-2019 [...]
--- OUTSIDE RECORDS SUMMARY | 2020-02-21 00:41 | XMS REPORT | Summary of Care ---
Author Author [facility] Address [address] [place] [address] Phone Unavailable Care Team Providers Care Copy Coordinator Name Role Phone KATIE Latham, MEMO Unavailable Unavailable CROW King, ARIC Unavailable Unavailab Adolph ALLEN [place], CAT CACERES Unavailable Unavailable HILLAYR ALLEN [place], GREGG ORTEGA Unavailable Unavailable KATIE ALFARO, MEMO Unavailable Unavailable MAVERICK ALLEN [place], ROSARIO Coyle Unavailable Unavailable GERARD ULLOA, ISABELLE [...] knee, 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, M17.11 ) Status: Active At risk for change in mental status (V15 .89, Z91.89) Status: Active Advance directive discussed with patient (V65.49, Z71.89) Status: Active Urinary incontinence (788.30, R32) Status: Active Depression screening (V79.0, Z13.31) Status: [...] kg/sq m (V85.41, Z68 .41) Status: Active Sore throat (462, J02.9) Status: Active Otitis, serous (381.4, H65.90) Status: Active Acute bronchitis, viral (466.0, J20.8) Status: Active Depression screening negative (V79.0, Z1 [...] DAILY * Quantity: 1 Refills: 1 KATIE Hernandez.MMEO Das * Start : 25-Feb-2018 Active 45 GM Tube Pravastatin Sodium 40 MG Oral Tablet TAKE 1 TABLET Daily NEEDS OFFICE VISIT * Quantity: 90 Refills: 1 MEMO PARADA * Start : 28-Feb-2018 Active Aspirin Low [...] Immunization Name Dates Details Influenza Lot #: [id number] on: 19-May-2014 Pneumococcal polysaccharide vaccine, 23 valent Lot #: [id number] on: 09-Aug-2014 Fluzone Quadrivalent 0.5 ML Intramuscula r Suspension Prefilled Syringe Lot #: [id number] on: 02-May-2016 Prevnar 13 Intramuscular Suspension Lot #: [id number] on: 06-Aug-2016 Prevnar 13 Intramuscular Suspension Lot #: [id number] on: 06-Aug-2016 Fluzone Quadrivalent 0.5 ML Intramuscula r Suspension Lot #: [id number] on: 24-Apr-2017 Fluzone High-Dose 0.5 ML Intramuscular S uspension Prefilled Syringe Lot #: [id number] on: 29-Apr-2018 Tdap Not Administered Fluzone High-Dose [...] (finding) Vital Signs Date Test Result Details [id number] Systolic blood pressure 119 mm[Hg] Status: Comments : Location: LUE; Position: Sitting Diastolic blood pressure 72 mm[Hg] Status: Comment s: Location: LUE; Position: Sitting Body height 63 in Status: Weight 232.5 lb Status: Body mass index (BMI) [Ratio] 41.19 kg/m2 Status: Body surface area Derived from formula 2.06 m2 S tatus: Body temperature 97.9 f Status: Comments: Me thod: Temporal Respiratory rate 16 /min Status: Physical Findings 0 Status: Comments: Pa in Scale Heart Rate 66 /min Status: Results Date Description Value Details Results not [...] Problem not documented On: 17-Feb-2019 13:00 [facility] En[facility] Diagnosis: Problem not documented On: 28-Apr-2019 [...] Diagnosis: Problem not documented On: 01-Sep-2019 9:00 Appointment; MEMO WILSON P.A. Encounter Diagnosis: Problem not documented On: 07-Sep-2019 13:30
--- OUTSIDE RECORDS SUMMARY | 2020-02-21 00:41 | XMS REPORT | Summary of Care ---
Author SOTO Dubose M.D. Unknown Address Unknown Phone Unavailable Care Team Providers Care Direct Support Professional Caregiver Name Role Phone HILLARY King, GREGG Romero Unavailable KATIE P.AAshkan, MEMO Unavailable Unavailable CROW King, ARIC Unavailable Unavailab johann LAZO MD [place], CAT CACERES Unavailable Unavailable HILLARY ALLEN [place], GREGG ORTEGA Unavailable Unavailable KATIE ALFARO, MEMO Unavailable Unavailable MAVERICK ALLEN [place], ROSARIO Coyle Unavailable Unavailable GERARD DSOUZA-Muriel, ISABELLE Maloney Unavailable Unavailable MOISE ALLEN, DALTON [...] HOURS NEEDED * Quantity: 1 Refills: 1 MEMO APRADA * Start : 29-Sep-2013 Active 8 GM Inhaler Atenolol 50 MG Oral Tablet TAKE 1 TABLET TWICE DAILY. * Quantity: 180 Refills: 1 MEMO PARADA * Start : 21-Jul-2014 Active amLODIPine Besylate 5 MG Oral Tablet TAKE 1 TABLET Daily NEEDS OFFICE VISIT * Quantity: 90 Refills: 3 ARIC MARIA M.D. * Start : 12-Jan-2015 Active Fluticasone Propionate 50 MCG/ACT Nasal Suspension USE 1 SPRAY IN EACH NOSTRIL TWICE A DAY * Quantity: 16 Refills: 2 KATIE Hernandez.NICOLE DasICIA * Start : 25-Oct-2017 Active Claudette 180 MG TABS TAKE 1 TABLET DAILY NEEDED. * Refills: 0 Active Tylenol CAPS PRN * Refills: 0 Active Olmesartan Medoxomil 40 MG Oral Tablet TAKE 1 TABLET DAILY. * Quantity: 90 Refills: 1 MEMO PARADA * Start : 15-Oct-2016 Active Betamethasone Dipropionate Aug 0.05 % External Ointment APPLY SPARINGLY TO AFFECTED AREA(S) TWICE DAILY * Quantity: 1 Refills: 1 MEMO PARADA * Start : 25-Feb-2018 Active 45 GM [...] Immunization Name Dates Details Influenza Lot #: [id number] on: 19-May-2014 Pneumococcal polysaccharide vaccine, 23 valent Lot #: [id number] on: 09-Aug-2014 Fluzone Quadrivalent 0.5 ML Intramuscula r Suspension Prefilled Syringe Lot #: [id number] on: 02-May-2016 Prevnar 13 Intramuscular Suspension Lot #: [id number] on: 06-Aug-2016 Prevnar 13 Intramuscular Suspension Lot #: [id number] on: 06-Aug-2016 Fluzone Quadrivalent 0.5 ML Intramuscula r Suspension Lot #: [id number] on: 24-Apr-2017 Fluzone High-Dose 0.5 ML Intramuscular S uspension Prefilled Syringe Lot #: [id number] on: 29-Apr-2018 Tdap Not Administered Fluzone High-Dose [...] ARIC MARIA M .D. On: 30-Oct-2019 10:40 Interventions Provided Plan* Re-reviewed the following results today: * Joao LE Venous US (dated 06/12/2019) * I evaluated Ms. Rasmussen today for symptomatic venous insufficiency. She has now found that wrapping her lower legs is helping relieve her symptoms. * At this time, she can F/U prn. Instructions Name Dates Details Instructions not documented [...] not documented On: 11-Jun-2018 13:15 Appointment; SCOTTY GUTIREREZ M.D. Encounter Diagnosis: Problem not documented On: 16-Jul-2018 13:15 Appointment; MEMO WILSON P.A. Encounter Diagnosis: Problem not documented On: 12-Aug-2018 15:00 Appointment; ISABELLE GEE APRN Encounter Diagnosis: Problem not documented On: 03-Nov-2018 10:30 Appointment; DALTON PHIPPS M.D. Encounter Diagnosis: Problem not documented On: 13-Nov-2018 13:45 Appointment; JALEESA FOLRES Encounter Diagnosis: Problem not documented On: 20-Nov-2018 [...]
--- OUTSIDE RECORDS SUMMARY | 2020-02-21 00:41 | XMS REPORT | Summary of Care ---
Author Author SOTO Ma Organization Unknown Address Unknown Phone Unavailable Care Team Providers Care Is Technician Name Role Phone Kellee Ma Unavailable Unavailable KATIE P.A., MEMO Unavailable Unavailable CROW King, ARIC Unavailable Unavailab johann LAZO MD [place], CAT CACERES Unavailable Unavailable HILLARY ALLEN [place], GREGG ORTEGA Unavailable Unavailable KATIE ALFARO, MEMO Unavailable Unavailable MAVERICK ALLEN [place], ROSARIO Coyle Unavailable Unavailable GERARD ULLOA, ISABELLE [...] venous insufficiency (459.81, I8 7.2) Status: Active Adult BMI 40.0-44.9 kg/sq m (V85.41, Z68 .41) Status: Active Sore throat (462, J02.9) Status: Active Otitis, serous (381.4, H65.90) Status: Active Acute bronchitis, viral (466.0, J20.8) Status: Active Depression screening negative (V79.0, Z1 3.31) Status: Active Medications Name Dates Details Doxazosin Mesylate 4 MG Oral Tablet TAKE 1 TABLET DAILY DIRECTED Quantity: 90 KATIE Hernandez.A.NICOLEMEMO * Start : 28-Jan-2014 Active Levothyroxine Sodium 88 MCG Oral Tablet TAKE ONE TABLET BY MOUTH EVERY DAY DIRECTED * Quantity: 90 Refills: 1 KATIE Hernandez.A.MEMO * Start : 18-Mar-2015 Active Ventolin HFA [...] DAY * Quantity: 16 Refills: 2 KATIE Hernandez.A.NICOLEMEMO * Start : 25-Oct-2017 Active Claudette 180 MG TABS TAKE 1 TABLET DAILY NEEDED. * Refills: 0 Active Tylenol CAPS PRN * Refills: 0 Active Olmesartan Medoxomil 40 MG Oral Tablet TAKE 1 TABLET DAILY. * Quantity: 90 Refills: 1 KATIE Hernandez.NICOLE DasICIA * Start : 15-Oct-2016 Active Betamethasone Dipropionate [...] Immunization Name Dates Details Influenza Lot #: [id number] on: 19-May-2014 Pneumococcal polysaccharide vaccine, 23 valent Lot #: [id number] on: 09-Aug-2014 Fluzone Quadrivalent 0.5 ML Intramuscula r Suspension Prefilled Syringe Lot #: [id number] on: 02-May-2016 Prevnar 13 Intramuscular Suspension Lot #: [id number] on: 06-Aug-2016 Prevnar 13 Intramuscular Suspension Lot #: [id number] on: 06-Aug-2016 Fluzone Quadrivalent 0.5 ML Intramuscula r Suspension Lot #: [id number] on: 24-Apr-2017 Fluzone High-Dose 0.5 ML Intramuscular S uspension Prefilled Syringe Lot #: [id number] on: 29-Apr-2018 Tdap Not Administered Fluzone High-Dose [...] smoker Vital Signs Date Test Result Details :14 Physical Findings 7 Status: Comments: PH Q-9 Adult Depression Screening 40-Nbm-904503:25 BP Systolic 117 mm[Hg] Status: Comments: Lo cation: LUE; Position: Sitting BP Diastolic 70 mm[Hg] Status: Comments: Lo cation: LUE; Position: Sitting Height 63 in Status: Weight 236 lb Status: Body Mass Index Calculated 41.81 kg/m2 Status: Body Surface Area Calculated 2.07 m2 Status: Temperature 97.9 f Status: Comments: Me thod: Temporal Heart Rate 63 /min Status: Respiration Rate 16 /min Status: Physical Findings 0 Status: Comments: Pa in Scale [id number]-Onl-310410:24 Physical Findings 0 Status: Comments: Al cohol [...]
--- OUTSIDE RECORDS SUMMARY | 2020-02-21 00:41 | XMS REPORT | Summary of Care ---
Author SOTO Boone M.A. Organization Unknown Address [facility] Phone Unavailable Care Team Providers Care Trauma Program Manager Name Role Phone KATIE Latham, MEMO Unavailable Unavailable RCOW King, ARIC Unavailable Unavailab Adolph ALLEN [place], CAT CACERES Unavailable Unavailable HILLARY ALLEN [place], GREGG ORTEGA Unavailable Unavailable MEMO MONTES Unavailable Unavailable MAVERICK ALLEN [place], ROSARIO Coyle Unavailable Unavailable GERARD DSOUZA-C, ISABELLE Maloney Unavailable Unavailable MOISE ALLEN, DALTON [...] VISIT * Quantity: 90 Refills: 1 KATIE Hernandez.AMEMO Luther * Start : 28-Feb-2018 Active Aspirin Low [...] Details CVRAD - Lower Venous Comp - 14178 Date: 12-Jun-2019 History of Sinus Surgery Completed History of Total Abdominal Hysterectomy With Removal Of Both Ovaries Completed Immunization Name Dates Details Influenza Lot #: [id number] on: 19-May-2014 Pneumococcal polysaccharide vaccine, 23 valent Lot #: [id number] on: 09-Aug-2014 Fluzone Quadrivalent 0.5 ML Intramuscula r Suspension Prefilled Syringe Lot #: [id number] on: 02-May-2016 Prevnar 13 Intramuscular Suspension Lot #: [id number] on: 06-Aug-2016 Prevnar 13 Intramuscular Suspension Lot #: [id number] on: 06-Aug-2016 Fluzone Quadrivalent 0.5 ML Intramuscula r Suspension Lot #: [id number] on: 24-Apr-2017 Fluzone High-Dose 0.5 ML Intramuscular S uspension Prefilled Syringe Lot #: [id number] on: 29-Apr-2018 Tdap Not Administered Fluzone High-Dose [...] Status: Comments: PH Q-9 Adult Depression Screening 52-Ync-388336:25 BP Systolic 117 mm[Hg] Status: Comments: Lo [...] Findings 0 Status: Comments: Pa in Scale 41-Vll-053001:24 Physical Findings 0 Status: Comments: Al cohol [...] M .D. On: 30-Oct-2019 10:40 Interventions Provided Medication Changes* predniSONE 10 MG Oral Tablet - Start Labs/Procedures/Imaging* [O] Streptococcus Test Rapid (In Office); Done: 03 Aug 2019 * Tobacco Use Screening; Done: 03 Aug 2019 Medications/Immunizations Administered* MethylPREDNISolone Acetate 80 MG/ML Injection Suspension Plan* if not improving, monitor sx, consider adding augmentin 875mg po bid. can tolerate keflex she thinks. Instructions Name Dates Details Instructions not documented [...] Problem not documented On: 17-Feb-2019 13:00 Appointment; [facility], E[facility] Encounter Diagnosis: Problem not documented On: [...]
--- OUTSIDE RECORDS SUMMARY | 2020-02-21 00:41 | XMS REPORT | Summary of Care ---
Author SOTO Dubose M.D. Unknown Address Unknown Phone Unavailable Care Team Providers Care Rag Sorter And Cutter Name Role Phone HILLARY King, GREGG Romero Unavailable KATIE P.AAshkan, MEMO Unavailable Unavailable CROW King, ARIC Unavailable Unavailab johann ALZO MD [place], CAT CACERES Unavailable Unavailable HILLARY [...] NEEDED * Quantity: 1 Refills: 1 MEMO PARADA * Start : 29-Sep-2013 Active 8 GM [...] Immunization Name Dates Details Influenza Lot #: [id number] on: 19-May-2014 Pneumococcal polysaccharide vaccine, 23 valent Lot #: [id number] on: 09-Aug-2014 Fluzone Quadrivalent 0.5 ML Intramuscula r Suspension Prefilled Syringe Lot #: [id number] on: 02-May-2016 Prevnar 13 Intramuscular Suspension Lot #: [id number] on: 06-Aug-2016 Prevnar 13 Intramuscular Suspension Lot #: [id number] on: 06-Aug-2016 Fluzone Quadrivalent 0.5 ML Intramuscula r Suspension Lot #: [id number] on: 24-Apr-2017 Fluzone High-Dose 0.5 ML Intramuscular S uspension Prefilled Syringe Lot #: [id number] on: 29-Apr-2018 Tdap Not Administered Fluzone High-Dose [...] Problem not documented On: 12-Jun-2019 8:00 Appointment; RGEGG THORNTON M.D. Encounter Diagnosis: Problem not documented On: 19-Jun-2019 11:15 Appointment; MEMO WILSON P.A. Encounter Diagnosis: Problem not documented On: 03-Aug-2019 13:30 Appointment; GREGG THORNTON M.D. Encounter Diagnosis: Problem not documented On: 01-Sep-2019 9:00
--- OUTSIDE RECORDS SUMMARY | 2020-02-21 00:41 | XMS REPORT | Summary of Care ---
Author Author [facility] Address [address] [place] [address] Phone Unavailable Care Team Providers Care Psychometrician Name Role Phone KATIE Latham, MEMO Unavailable Unavailable CROW King, ARIC Unavailable Unavailab Adolph ALLEN [place], CAT CACERES Unavailable Unavailable HILLARY ALLEN [place], GREGG ORTEGA Unavailable Unavailable KATIE ALFARO, MEMO Unavailable Unavailable MAVERICK ALLEN [place], ROSARIO Coyle Unavailable Unavailable GERARD ULLOA, ISABELLE [...] 1 TABLET DAILY DIRECTED Quantity: 90 KATIE P.A. MEMO * Start : 28-Jan-2014 Active Atenolol 50 MG Oral Tablet TAKE 1 TABLET TWICE DAILY. * Quantity: 180 Refills: 1 KATIE P.A. MEMO * Start : 21-Jul-2014 Active predniSONE 10 MG Oral Tablet TAKE 1 TABLET DAILY. * Quantity: 10 Refills: 0 KATIE P.A. MEMO * Start : 03-Aug-2019 Active Pravastatin Sodium 40 MG Oral Tablet TAKE 1 TABLET Daily NEEDS OFFICE VISIT * Quantity: 90 Refills: 1 KATIE P.A. MEMO * Start : 28-Feb-2018 Active Olmesartan Medoxomil 40 MG Oral Tablet TAKE 1 TABLET DAILY. * Quantity: 90 Refills: 1 KATIE P.A.NICOLEMEMO * Start : 15-Oct-2016 Active amLODIPine Besylate 5 MG Oral Tablet TAKE 1 TABLET Daily NEEDS OFFICE VISIT * Quantity: 90 Refills: 3 ARIC MARIA M.D. * Start : 12-Jan-2015 Active Fluticasone Propionate 50 MCG/ACT Nasal Suspension USE 1 SPRAY IN EACH NOSTRIL TWICE A DAY * Quantity: 16 Refills: 2 KATIE P.A. MEMO * Start : 25-Oct-2017 Active Betamethasone Dipropionate Aug 0.05 % External Ointment APPLY SPARINGLY TO AFFECTED AREA(S) TWICE DAILY * Quantity: 1 Refills: 1 KATIE P.A. MEMO * Start : 25-Feb-2018 Active 45 GM Tube Aspirin Low Dose 81 MG Oral Tablet Delayed Release TAKE 1 TABLET EVERY OTHER DAY * Refills: 0 ARIC MARIA M.D. * Start : 10-Jul-2018 Active Tylenol CAPS PRN * Refills: 0 Active Claudette 180 MG TABS TAKE 1 TABLET DAILY NEEDED. * Refills: 0 Active Levothyroxine Sodium 88 MCG Oral Tablet TAKE ONE TABLET BY MOUTH EVERY DAY DIRECTED * Quantity: 90 Refills: 1 KATIE P.A. MEMO * Start : 18-Mar-2015 Active Ventolin HFA 108 (90 Base) MCG/ACT Inhalation Aerosol Solution INHALE 2 PUFFS EVERY 4 HOURS NEEDED * Quantity: 1 Refills: 1 KATIE P.A. MEMO * Start : 29-Sep-2013 Active 8 GM Inhaler Allergies and Adverse Reactions Name Dates Details [...] Immunization Name Dates Details Influenza Lot #: [id number] on: 19-May-2014 Pneumococcal polysaccharide vaccine, 23 valent Lot #: [id number] on: 09-Aug-2014 Fluzone Quadrivalent 0.5 ML Intramuscula r Suspension Prefilled Syringe Lot #: [id number] on: 02-May-2016 Prevnar 13 Intramuscular Suspension Lot #: [id number] on: 06-Aug-2016 Prevnar 13 Intramuscular Suspension Lot #: [id number] on: 06-Aug-2016 Fluzone Quadrivalent 0.5 ML Intramuscula r Suspension Lot #: [id number] on: 24-Apr-2017 Fluzone High-Dose 0.5 ML Intramuscular S uspension Prefilled Syringe Lot #: [id number] on: 29-Apr-2018 Tdap Not Administered Fluzone High-Dose [...] Status: Comments: PH Q-9 Adult Depression Screening 92-Arz-610019:25 Systolic blood pressure 117 mm[Hg] Status: Comments [...] Findings 0 Status: Comments: Pa in Scale 66-[id number]:24 Physical Findings 0 Status: Comments: Al cohol [...] Problem not documented On: 28-Apr-2019 12:00 Appointment; HILLARY, GREGG, M.D. Encounter Diagnosis: Problem not documented On: 22-May-2019 11:30 Appointment; [facility], [facility] Encounter Diagnosis: Problem not documented On: 12-Jun-2019 8:00 Appointment; GREGG THORNTON M.D. Encounter Diagnosis: Problem not documented On: 19-Jun-2019 11:15 Appointment; MEMO WILSON P.A. Encounter Diagnosis: Problem not documented On: 03-Aug-2019 13:30
--- OUTSIDE RECORDS SUMMARY | 2020-02-21 00:41 | XMS REPORT | Summary of Care ---
Author SOTO Julien APRN Organization Unknown Address Unknown Phone Unavailable Care Team Providers Care Cycling Instructor Name Role Phone HILLARY King, GREGG Unavailable Unavailable KATIE P.A., MEMO Unavailable Unavailable CROW King, ARIC Unavailable Unavailab johann LAZO MD [place], CAT CACERES Unavailable Unavailable HILLARY ALLEN [place], GREGG ORTEGA Unavailable Unavailable KATIE ALFARO, MEMO Unavailable Unavailable MAVERICK ALLEN [place], ROSARIO Coyle Unavailable Unavailable GERARD ULLOA, ISABELLE [...] DAY * Quantity: 16 Refills: 2 KATIE Hernandez.Sakina.NICOLEMEMO * Start : 25-Oct-2017 Active Claudette 180 [...] DAILY * Quantity: 1 Refills: 1 KATIE Hernandez.A., MEMO * Start : 25-Feb-2018 Active 45 GM Tube Pravastatin Sodium 40 MG Oral Tablet TAKE 1 TABLET Daily NEEDS OFFICE VISIT * Quantity: 90 Refills: 1 KATIE Hernandez.MEMO Das * Start : 28-Feb-2018 Active Aspirin Low [...] Immunization Name Dates Details Influenza Lot #: [id number] on: 19-May-2014 Pneumococcal polysaccharide vaccine, 23 valent Lot #: [id number] on: 09-Aug-2014 Fluzone Quadrivalent 0.5 ML Intramuscula r Suspension Prefilled Syringe Lot #: [id number] on: 02-May-2016 Prevnar 13 Intramuscular Suspension Lot #: [id number] on: 06-Aug-2016 Prevnar 13 Intramuscular Suspension Lot #: [id number] on: 06-Aug-2016 Fluzone Quadrivalent 0.5 ML Intramuscula r Suspension Lot #: [id number] on: 24-Apr-2017 Fluzone High-Dose 0.5 ML Intramuscular S uspension Prefilled Syringe Lot #: [id number] on: 29-Apr-2018 Tdap Not Administered Fluzone High-Dose [...] Ms. Rasmussen today for symptomatic venous insufficiency. Instructions Name Dates Details Instructions not documented [...]
--- OUTSIDE RECORDS SUMMARY | 2020-02-21 00:41 | XMS REPORT | Summary of Care ---
Author SOTO Julien APRN Organization Unknown Address Unknown Phone Unavailable Care Team Providers Care Boom Stick Man Name Role Phone HILLARY King, GREGG Unavailable Unavailable KATIE P.A., MEMO Unavailable Unavailable CROW King, ARIC Unavailable Unavailab johann LAZO MD [place], CAT CACERES Unavailable Unavailable HILLARY ALLEN [place], GREGG ORTEGA Unavailable Unavailable KATIE ALFARO, MEMO Unavailable Unavailable MAVERICK ALLEN [place], ROSARIO Coyle Unavailable Unavailable GERARD ULLOA, ISABELLE [...] Immunization Name Dates Details Influenza Lot #: [id number] on: 19-May-2014 Pneumococcal polysaccharide vaccine, 23 valent Lot #: [id number] on: 09-Aug-2014 Fluzone Quadrivalent 0.5 ML Intramuscula r Suspension Prefilled Syringe Lot #: [id number] on: 02-May-2016 Prevnar 13 Intramuscular Suspension Lot #: [id number] on: 06-Aug-2016 Prevnar 13 Intramuscular Suspension Lot #: [id number] on: 06-Aug-2016 Fluzone Quadrivalent 0.5 ML Intramuscula r Suspension Lot #: [id number] on: 24-Apr-2017 Fluzone High-Dose 0.5 ML Intramuscular S uspension Prefilled Syringe Lot #: [id number] on: 29-Apr-2018 Tdap Not Administered Fluzone High-Dose [...]
--- OUTSIDE RECORDS SUMMARY | 2020-02-21 00:42 | XMS REPORT | Summary of Care ---
Author SOTO Wilkerson M.A. Organization Unknown Address [facility] Phone Unavailable Care Team Providers Care District Ranger Name Role Phone KATIE Latham, MEMO Unavailable Unavailable CROW King, ARIC Unavailable Unavailab Adolph ALLEN [place], CAT CACERES Unavailable Unavailable HILLARY ALLEN [place], GREGG ORTEGA Unavailable Unavailable MEMO MONTES Unavailable Unavailable MAVERICK ALLEN [place], ROSARIO Coyle Unavailable Unavailable GERARD DSOUZA-C, ISABELLE Maloney Unavailable Unavailable MOISE ALLEN, DALTON Llamas Unavailable Unavailable VILOET King, CAT Unavailable Unavailable Crow ALLEN, Aric Unavailable Unavailable Unavailable Unavailable Functional Status Name Dates Details Functional status health issues are not documented Status: Name Dates Details Cognitive status health issues are not d ocumented Status: Problems Name Dates Details Rheumatoid arthritis (714.0, M06.9) Status: Active Need for pneumococcal vaccination (V03.8 2, Z23) Status: Active Uncontrolled hypertension (401.9, I10) Status: [...] hearing l oss) (389.16, H90.5) Status: Active Acute bacterial bronchitis (466.0, J20.8 ) Status: Active Lower extremity edema (782.3, R60.0) Status: Active Lymphedema (457.1, I89.0) Status: Active Left leg pain (729.5, M79.605) Status: Active Stasis edema of left lower extremity (45 9.30, I87.302) Status: Active Sore throat (462, J02.9) Status: Active Otitis, serous (381.4, H65.90) Status: Active Acute bronchitis, viral (466.0, J20.8) Status: Active Depression screening negative (V79.0, Z1 3.31) Status: Active Chronic venous insufficiency (459.81, I8 7.2) Status: Active Edema (782.3, R60.9) Status: Active High triglycerides (272.1, E78.1) Status: Active Hypothyroidism (244.9, E03.9) Status: Active Adult BMI 40.0-44.9 kg/sq m (V85.41, Z68 .41) Status: Active Prediabetes (790.29, R73.03) Status: Active Essential (primary) hypertension (401.9, I10) Status: Active Hyperlipidemia (272.4, E78.5) Status: Active Mitral and aortic regurgitation (396.3, I08.0) Status: Active Medications Name Dates Details Doxazosin Mesylate 4 MG Oral Tablet TAKE 1 TABLET DAILY DIRECTED Quantity: 90 KATIE Hernandez.Sakina.MEMO * Start : 28-Jan-2014 Active Levothyroxine Sodium [...] 5 MG Oral Tablet TAKE 1 TABLET BY MOUTH DAILY * Quantity: 90 Refills: 1 ARIC MARIA M.D. * Start : 12-Jan-2015 [...] MARIA M.D. * Start : 10-Jul-2018 Active Refresh SOLN * Refills: 0 Active Allergies and Adverse Reactions Name Dates [...] Z86.69) Status: Resolved Procedures Procedure Dates Details [N] 2D Echo complete, with Doppler [id number] Date: 30-Oct-2019 History of Sinus Surgery Completed History of Total Abdominal Hysterectomy With Removal Of Both Ovaries Completed Immunization Name Dates Details Influenza Lot #: [id number] on: 19-May-2014 Pneumococcal polysaccharide vaccine, 23 valent Lot #: [id number] on: 09-Aug-2014 Fluzone Quadrivalent 0.5 ML Intramuscula r Suspension Prefilled Syringe Lot #: [id number] on: 02-May-2016 Prevnar 13 Intramuscular Suspension Lot #: [id number] on: 06-Aug-2016 Prevnar 13 Intramuscular Suspension Lot #: [id number] on: 06-Aug-2016 Fluzone Quadrivalent 0.5 ML Intramuscula r Suspension Lot #: [id number] on: 24-Apr-2017 Fluzone High-Dose 0.5 ML Intramuscular S uspension Prefilled Syringe Lot #: [id number] on: 29-Apr-2018 Tdap Not Administered Fluzone High-Dose [...] of Care Name Dates Details Planned Observations [N] 2D Echo complete, with Doppler [id number] On: 28-Mar-20 20 Intent Planned Goals not documented Interventions Provided Medication Changes* amLODIPine Besylate 5 MG Oral Tablet - Renew Plan* 1. HTN: well controlled * a. TTE as per HPI. Repeat TTE 10/05/2016 was unchanged from prior * TTE 04/28/2019 reviewed and normal LV function with stable valvular disease but LV borderline dilated * b. On amlodipine 5mg daily * c. cont benicar, doxazosin, atenolol * 2. LDL: 02/27/2018 reviewed * a. low fat diet. exercise * b. pravastatin 40mg daily * 3. LE edema : Dr. English evaluated Ms. Rasmussen today for symptomatic venous insufficiency. She has now found that wrapping her lower legs is helping relieve her symptoms. * a. LE u/s normal * b. compression stockings * c. Low salt diet * d. furosemide 20mg daily * e. f/u Dr. English * 4. chest pressure: resided * a. 10/17/2016 nuclear stress test was + for lateral and possible anterior ischemia. * LHC: reviewed with non obstructive disease w elevated LVEDP * b. cont asa 81mg daily * c. cont furosemide 20mg daily * 5. Valvular disease: mild AR and MR * a. TTE in 6M Instructions Name Dates Details Instructions not documented [...] Problem not documented On: 17-Feb-2019 13:00 Appointment; [facility] [place] Encounter Diagnosis: Problem not documented On: 28-Apr-2019 11:00 Appointment; ARIC MARIA M .D. Encounter Diagnosis: Problem not documented On: 28-Apr-2019 12:00 Appointment; GREGG ENGLISH M.D. Encounter Diagnosis: Problem not documented On: 22-May-2019 11:30 Appointment; [facility], SE Encounter Diagnosis: Problem not documented On: 12-Jun-2019 8:00 Appointment; GREGG ENGLISH M.D. Encounter Diagnosis: Problem not documented On: 19-Jun-2019 11:15 Appointment; MEMO WILSON P.A. Encounter Diagnosis: Problem not documented On: 03-Aug-2019 13:30 Appointment; GREGG ENGLISH M.D. Encounter Diagnosis: Problem not documented On: 01-Sep-2019 9:00 Appointment; MEMO WILSON P.A. Encounter Diagnosis: Problem not documented On: 07-Sep-2019 13:30 Appointment; ARIC MARIA M .D. Encounter Diagnosis: Problem not documented On: 30-Oct-2019 10:40
--- OUTSIDE RECORDS SUMMARY | 2020-02-21 00:42 | XMS REPORT | Summary of Care ---
Author Author [facility] Address [address] [place] [address] Phone Unavailable Care Team Providers Care Medical Collector Name Role Phone KATIE Latham, MEMO Unavailable Unavailable CROW King, ARIC Unavailable Unavailab Adolph ALLEN [place], CAT CACERES Unavailable Unavailable HILLARY ALLEN [place], GREGG ORTEGA Unavailable Unavailable KATIE ALFARO, MEMO Unavailable Unavailable MAVERICK ALLEN [place], ROSARIO Coyle Unavailable Unavailable GERARD ULLOA, ISABELLE [...] Active Skin candidiasis (112.3, B37.2) Status: Active Allergic rhinitis (477.9, J30.9) Status: [...] Status: Active Hematuria (599.70, R31.9) Status: Active Need for influenza vaccination (V04.81, Z23) Status: Active Otitis media, acute (382.9, H66.90) Status: Active Maxillary sinusitis, acute (461.0, J01.0 0) Status: Active Acute otitis media (382.9, H66.90) Status: Active Acute bacterial bronchitis (466.0, J20.8 ) Status: Active Left leg pain (729.5, M79.605) [...] and aortic regurgitation (396.3, I08.0) Status: Active 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, H90.5) Status: Active Bilateral hearing loss (389.9, H91.93) Status: Active Otalgia of both ears (388.70, H92.03) Status: Active Depression screening (V79.0, Z13.31) Status: Active Urinary incontinence (788.30, R32) Status: Active Advance directive discussed with patient (V65.49, Z71.89) Status: Active At risk for change in mental status (V15 .89, Z91.89) Status: Active Arthritis of knee, 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 * Start : 12-Jan-2015 Active Betamethasone Dipropionate Aug 0.05 % External Ointment APPLY SPARINGLY TO AFFECTED AREA(S) TWICE DAILY * Quantity: 1 Refills: 1 MEMO PARADA * Start : 25-Feb-2018 Active 45 GM Tube Refresh SOLN * Refills: 0 Active Aspirin Low Dose 81 MG Oral Tablet Delayed Release TAKE 1 TABLET EVERY OTHER DAY * Refills: 0 ARIC MARIA M.D. * Start : 10-Jul-2018 Active Atenolol 50 MG Oral Tablet TAKE 1 TABLET TWICE DAILY. * Quantity: 180 Refills: 1 MEMO PARADA * Start : 21-Jul-2014 Active Doxazosin Mesylate 4 MG Oral Tablet TAKE 1 TABLET DAILY DIRECTED * Quantity: 90 Refills: 1 KATIE Hernandez.AMEMO Luther * Start : 28-Jan-2014 Active Levothyroxine Sodium 88 MCG Oral Tablet TAKE ONE TABLET BY MOUTH EVERY DAY DIRECTED * Quantity: 90 Refills: 1 KATIE P.A.NICOLEMEMO * Start : 18-Mar-2015 Active Fluticasone Propionate 50 MCG/ACT Nasal Suspension USE 1 SPRAY IN EACH NOSTRIL TWICE A DAY * Quantity: 16 Refills: 2 KATIE P.A.NICOLEMEMO * Start : 25-Oct-2017 Active Pravastatin Sodium 40 MG Oral Tablet TAKE 1 TABLET Daily NEEDS OFFICE VISIT * Quantity: 90 Refills: 1 KATIE P.A.MEMO * Start : 28-Feb-2018 Active Olmesartan Medoxomil 40 MG Oral Tablet TAKE 1 TABLET DAILY. * Quantity: 90 Refills: 1 KATIE P.A., MEMO * Start : 15-Oct-2016 Active Tylenol CAPS PRN * Refills: 0 Active Claudette 180 MG TABS TAKE 1 TABLET DAILY NEEDED. * Refills: 0 Active Ventolin HFA 108 [...] Details [N] 2D Echo complete, with Doppler [id number] Date: 30-Oct-2019 History of Sinus Surgery Completed History of Total Abdominal Hysterectomy With Removal Of Both Ovaries Completed Immunization Name Dates Details Influenza Lot #: [id number] on: 19-May-2014 Pneumococcal polysaccharide vaccine, 23 valent Lot #: [id number] on: 09-Aug-2014 Fluzone Quadrivalent 0.5 ML Intramuscula r Suspension Prefilled Syringe Lot #: [id number] on: 02-May-2016 Prevnar 13 Intramuscular Suspension Lot #: [id number] on: 06-Aug-2016 Prevnar 13 Intramuscular Suspension Lot #: [id number] on: 06-Aug-2016 Fluzone Quadrivalent 0.5 ML Intramuscula r Suspension Lot #: [id number] on: 24-Apr-2017 Fluzone High-Dose 0.5 ML Intramuscular S uspension Prefilled Syringe Lot #: [id number] on: 29-Apr-2018 Tdap Not Administered Fluzone High-Dose [...] Planned Encounters Appointment; MEMO WILSON P.A. On: 04-Dec-2019 14:00 Appointment; [place] ADEN On: 29-Apr-2020 10:00 Appointment; ARIC MARIA M .D. On: 29-Apr-2020 11:00 Instructions Name Dates Details Instructions not documented [...] Problem not documented On: 07-Sep-2019 13:30 Appointment; ARCI MARIA M .D. Encounter Diagnosis: Problem not documented On: 30-Oct-2019 10:40
--- OUTSIDE RECORDS SUMMARY | 2020-02-21 00:42 | XMS REPORT | Summary of Care ---
Author Author [facility] Address [address] [place] [address] Phone Unavailable Care Team Providers Care Sand System Operator Name Role Phone KATIE Latham, MEMO Unavailable Unavailable CROW King, ARIC Unavailable Unavailab Adolph ALLEN [place], [place] CACER[place] Unavailable Unavailable HILLARY ALLEN [place], GREGG ORTEGA Unavailable Unavailable KATIE ALFARO, MEMO Unavailable Unavailable MAVERICK ALLEN [place], ROSARIO Coyle Unavailable Unavailable GERARD ULLOA, ISABELLE [...] DIRECTED * Quantity: 90 Refills: 1 KATIE Hernandez.A.NICOLEMEMO * Start : 18-Mar-2015 Active Ventolin HFA [...] Details [N] 2D Echo complete, with Doppler [id number] Date: 30-Oct-2019 History of Sinus Surgery Completed History of Total Abdominal Hysterectomy With Removal Of Both Ovaries Completed Immunization Name Dates Details Influenza Lot #: [id number] on: 19-May-2014 Pneumococcal polysaccharide vaccine, 23 valent Lot #: [id number] on: 09-Aug-2014 Fluzone Quadrivalent 0.5 ML Intramuscula r Suspension Prefilled Syringe Lot #: [id number] on: 02-May-2016 Prevnar 13 Intramuscular Suspension Lot #: [id number] on: 06-Aug-2016 Prevnar 13 Intramuscular Suspension Lot #: [id number] on: 06-Aug-2016 Fluzone Quadrivalent 0.5 ML Intramuscula r Suspension Lot #: [id number] on: 24-Apr-2017 Fluzone High-Dose 0.5 ML Intramuscular S uspension Prefilled Syringe Lot #: [id number] on: 29-Apr-2018 Tdap Not Administered Fluzone High-Dose [...] (finding) Vital Signs Date Test Result Details [id number]-Sox-[id number] Systolic blood pressure 147 mm[Hg] Status: Comments : Location: LUE; Position: Sitting Diastolic blood pressure 71 mm[Hg] Status: Comment s: Location: LUE; Position: Sitting Body height 63 in Status: Weight 227.00 lb Status: Body mass index (BMI) [Ratio] 40.21 kg/m2 Status: Body surface area Derived from formula 2.04 m2 S tatus: Body temperature 98.5 f Status: Comments: Me thod: Temporal Heart Rate 64 /min Status: Respiratory rate 16 /min Status: Physical Findings 8 Status: Comments: Pa in Scale Results Date Description Value Details Results not documented Plan of Care Name Dates Details Planned Observations Planned Goals not documented Planned Encounters Appointment; [facility] On: 29-Apr-2020 10:00 Appointment; [...] Problem not documented On: 17-Feb-2019 13:00 [facility] Encounter Diagnosis: Problem not documented On: [...] Diagnosis: Problem not documented On: 30-Oct-2019 10:40 Appointment; MEMO WILSON P.A. Encounter Diagnosis: Problem not documented On: 04-Dec-2019 14:00
--- OUTSIDE RECORDS SUMMARY | 2020-02-21 00:42 | XMS REPORT | Summary of Care ---
Author SOTO Boone M.A. Organization Unknown Address [facility] Phone Unavailable Care Team Providers Care Chain Maker Machine Name Role Phone KATIE Latham, MEMO Unavailable Unavailable Jordan El, Kaity Unavailable Unavailable CROW King, ARIC Unavailable Unavailab Adolph ALLEN [place], [place] CACER[place] Unavailable Unavailable HILLARY ALLEN [place], GREGG ORTE[place] Unavailable Unavailable KATIE ALFARO, MEMO Unavailable Unavailable MAVERICK ALLEN [place], ROSARIO Coyle Unavailable Unavailable GERARD DSOUZA-Muriel, ISABELLE [...] DAILY * Quantity: 1 Refills: 1 KATIE Hernandez.AMEMO Luther * Start : 25-Feb-2018 Active 45 GM [...] Immunization Name Dates Details Influenza Lot #: [id number] on: 19-May-2014 Pneumococcal polysaccharide vaccine, 23 valent Lot #: [id number] on: 09-Aug-2014 Fluzone Quadrivalent 0.5 ML Intramuscula r Suspension Prefilled Syringe Lot #: [id number] on: 02-May-2016 Prevnar 13 Intramuscular Suspension Lot #: [id number] on: 06-Aug-2016 Prevnar 13 Intramuscular Suspension Lot #: [id number] on: 06-Aug-2016 Fluzone Quadrivalent 0.5 ML Intramuscula r Suspension Lot #: [id number] on: 24-Apr-2017 Fluzone High-Dose 0.5 ML Intramuscular S uspension Prefilled Syringe Lot #: [id number] on: 29-Apr-2018 Tdap Not Administered Fluzone High-Dose [...] (finding) Vital Signs Date Test Result Details 5-[id number] Systolic blood pressure 119 mm[Hg] Status: Comments [...] Problem not documented On: 17-Feb-2019 13:00 [facility] Encounter Diagnosis: Problem not documented [...]
--- OUTSIDE RECORDS SUMMARY | 2020-02-21 00:42 | XMS REPORT | Summary of Care ---
Author SOTO Sanchez R.N. Organization Unknown Address Unknown Phone Unavailable Care Team Providers Care Organ Builder Name Role Phone KATIE Latahm, MEMO Unavailable Unavailable CROW King, ARIC Unavailable Unavailab johann Patino R.N., [place] Unavailable Unavailable VIOLET ALLEN [place], CAT CACERES Unavailable Unavailable HILLARY ALLEN [place], GREGG ORTEGA Unavailable Unavailable MEMO MONTES Unavailable Unavailable MAVERICK ALLEN [place], ROSARIO Coyle Unavailable Unavailable GERARD DSOUZA-C, ISABELLE [...] bacterial bronchitis (466.0, J20.8 ) Status: Active Hyperlipidemia (272.4, E78.5) Status: Active Lower extremity edema (782.3, R60.0) [...] Status: Active Edema (782.3, R60.9) Status: Active Essential (primary) hypertension (401.9, I10) Status: Active High triglycerides (272.1, E78.1) Status: Active Hypothyroidism (244.9, E03.9) Status: Active Adult BMI 40.0-44.9 kg/sq m (V85.41, Z68 .41) Status: Active Prediabetes (790.29, R73.03) Status: Active Medications Name Dates Details Doxazosin Mesylate 4 MG Oral Tablet TAKE 1 TABLET DAILY DIRECTED Quantity: 90 KATIE P.A. MEMO * Start : 28-Jan-2014 Active Levothyroxine [...] P.A., MEMO * Start : 25-Oct-2017 Active Claudette 180 MG TABS TAKE 1 TABLET DAILY NEEDED. * Refills: 0 Active Tylenol CAPS PRN * Refills: 0 Active Olmesartan Medoxomil 40 MG Oral Tablet TAKE 1 TABLET DAILY. * Quantity: 90 Refills: 1 KATIE P.A. MEMO * Start : 15-Oct-2016 Active Aspirin Low Dose 81 MG Oral Tablet Delayed Release TAKE 1 TABLET EVERY OTHER DAY * Refills: 0 ARIC MARIA M.D. * Start : 10-Jul-2018 Active Pravastatin Sodium 40 MG Oral Tablet TAKE 1 TABLET Daily NEEDS OFFICE VISIT * Quantity: 90 Refills: 1 KATIE P.A., MEMO * Start : 28-Feb-2018 Active Betamethasone Dipropionate Aug 0.05 % External Ointment APPLY SPARINGLY TO AFFECTED AREA(S) TWICE DAILY * Quantity: 1 Refills: 1 KATIE P.A., MEMO * Start : 25-Feb-2018 Active 45 GM Tube Allergies and Adverse Reactions Name Dates Details [...] Immunization Name Dates Details Influenza Lot #: [id number] on: 19-May-2014 Pneumococcal polysaccharide vaccine, 23 valent Lot #: [id number] on: 09-Aug-2014 Fluzone Quadrivalent 0.5 ML Intramuscula r Suspension Prefilled Syringe Lot #: [id number] on: 02-May-2016 Prevnar 13 Intramuscular Suspension Lot #: [id number] on: 06-Aug-2016 Prevnar 13 Intramuscular Suspension Lot #: [id number] on: 06-Aug-2016 Fluzone Quadrivalent 0.5 ML Intramuscula r Suspension Lot #: [id number] on: 24-Apr-2017 Fluzone High-Dose 0.5 ML Intramuscular S uspension Prefilled Syringe Lot #: [id number] on: 29-Apr-2018 Tdap Not Administered Fluzone High-Dose [...] M .D. On: 30-Oct-2019 10:40 Interventions Provided Discussion/Summary* Guideline Used: * Other: No guideline * [place] * [phone], Pt returning call to clinical staff. Read telephone note to pt. Pt will accept telephone appt and would like to be call on # provide here. Task sent to Rafaela * Intended Caller Action: * Other: Returning Call Instructions Name Dates Details Instructions not documented [...] Problem not documented On: 17-Feb-2019 13:00 [facility] Encounter Diagnosis: Problem not documented On: [...]
--- OUTSIDE RECORDS SUMMARY | 2020-02-21 00:42 | XMS REPORT | Summary of Care ---
Author Author SOTO Rojo Organization Unknown Address Unknown Phone Unavailable Care Team Providers Care Cork Insulator Name Role Phone KTAIE P.A., MEMO Unavailable Unavailable Sana Rojo Unavailable Unavailable CROW King, ARIC Unavailable Unavailab Adolph ALLEN [place], CAT CACERES Unavailable Unavailable HILLARY ALLEN [place], GREGG ORTE[place] Unavailable Unavailable KATIE ALFARO, MEMO Unavailable Unavailable MAVERICK ALLEN [place], ROSARIO Coyle Unavailable Unavailable GERARD ULLOA, ISABELLE [...] Details [N] 2D Echo complete, with Doppler [id number] Date: 30-Oct-2019 History of Sinus Surgery Completed History of Total Abdominal Hysterectomy With Removal Of Both Ovaries Completed Immunization Name Dates Details Influenza Lot #: [id number] on: 19-May-2014 Pneumococcal polysaccharide vaccine, 23 valent Lot #: [id number] on: 09-Aug-2014 Fluzone Quadrivalent 0.5 ML Intramuscula r Suspension Prefilled Syringe Lot #: [id number] on: 02-May-2016 Prevnar 13 Intramuscular Suspension Lot #: [id number] on: 06-Aug-2016 Prevnar 13 Intramuscular Suspension Lot #: [id number] on: 06-Aug-2016 Fluzone Quadrivalent 0.5 ML Intramuscula r Suspension Lot #: [id number] on: 24-Apr-2017 Fluzone High-Dose 0.5 ML Intramuscular S uspension Prefilled Syringe Lot #: [id number] on: 29-Apr-2018 Tdap Not Administered Fluzone High-Dose [...] Observations [N] 2D Echo complete, with Doppler [id number] On: 29-Apr-20 20 Intent Planned Goals not documented Planned Encounters Appointment; [...] Problem not documented On: 17-Feb-2019 13:00 [facility] Encounter Diagnosis: Problem not documented On: 28-Apr-2019 [...]
--- OUTSIDE RECORDS SUMMARY | 2020-02-21 00:42 | XMS REPORT | Summary of Care ---
Author Author [facility] Address [address] [place] [address] Phone Unavailable Care Team Providers Care Construction Carpenter Name Role Phone KATIE Latham, MEMO Unavailable Unavailable CROW King, ARIC Unavailable Unavailab Adolph ALLEN [place], CAT CACER[place] Unavailable Unavailable HILLARY ALLEN [place], GREGG ORTEGA Unavailable Unavailable KATIE ALFARO, MEMO Unavailable Unavailable MAVERICK ALLEN [place], ROSARIO Coyle Unavailable Unavailable GERARD ULLOA, ISABELLE [...] R73.03) Status: Active Medications Name Dates Details Aspirin Low Dose 81 MG Oral Tablet Delay ed Release TAKE 1 TABLET EVERY OTHER DAY ARIC MARIA M.D. * Start : 10-Jul-2018 Active Pravastatin Sodium 40 MG Oral Tablet TAKE 1 TABLET Daily NEEDS OFFICE VISIT * Quantity: 90 Refills: 1 MEMO PARADA * Start : 28-Feb-2018 Active Betamethasone Dipropionate Aug 0.05 % External Ointment APPLY SPARINGLY TO AFFECTED AREA(S) TWICE DAILY * Quantity: 1 Refills: 1 MEMO PARADA * Start : 25-Feb-2018 Active 45 GM Tube Olmesartan Medoxomil 40 MG Oral Tablet TAKE 1 TABLET DAILY. * Quantity: 90 Refills: 1 MEMO PARADA * Start : 15-Oct-2016 Active Levothyroxine Sodium 88 MCG Oral Tablet TAKE ONE TABLET BY MOUTH EVERY DAY DIRECTED * Quantity: 90 Refills: 1 MEMO PARADA * Start : 18-Mar-2015 Active Ventolin HFA [...] P.A., MEMO * Start : 25-Oct-2017 Active Tylenol CAPS PRN * Refills: 0 Active Claudette 180 MG TABS TAKE 1 TABLET DAILY NEEDED. * Refills: 0 Active Doxazosin Mesylate 4 MG Oral Tablet TAKE 1 TABLET DAILY DIRECTED * Quantity: 90 Refills: 1 KATIE P.A., MEMO * Start : 28-Jan-2014 Active Allergies and Adverse Reactions Name Dates [...] Immunization Name Dates Details Influenza Lot #: [id number] on: 19-May-2014 Pneumococcal polysaccharide vaccine, 23 valent Lot #: [id number] on: 09-Aug-2014 Fluzone Quadrivalent 0.5 ML Intramuscula r Suspension Prefilled Syringe Lot #: [id number] on: 02-May-2016 Prevnar 13 Intramuscular Suspension Lot #: [id number] on: 06-Aug-2016 Prevnar 13 Intramuscular Suspension Lot #: [id number] on: 06-Aug-2016 Fluzone Quadrivalent 0.5 ML Intramuscula r Suspension Lot #: [id number] on: 24-Apr-2017 Fluzone High-Dose 0.5 ML Intramuscular S uspension Prefilled Syringe Lot #: [id number] on: 29-Apr-2018 Tdap Not Administered Fluzone High-Dose [...] Problem not documented On: 17-Feb-2019 13:00 Appointment; [facility] [place] Encounter Diagnosis: Problem not documented On: [...]
--- OUTSIDE RECORDS SUMMARY | 2020-02-21 00:42 | XMS REPORT | Summary of Care ---
Author Author SOTO PARADA Organization Unknown Address Unknown Phone Unavailable Care Team Providers Care Superintendent Custodian Janitor Name Role Phone MEMO PARADA Unavailable Unavailable CROW King, ARIC Unavailable Unavailab Adolph ALLEN [place], CAT CACERES Unavailable Unavailable HILLARY ALLEN [place], GREGG ORTEGA Unavailable Unavailable MEMO MONTES Unavailable Unavailable MAVERICK ALLEN [place], ROSARIO Coyle Unavailable Unavailable GERARD DSOUZA-C, ISABELLE [...] DIRECTED * Quantity: 90 Refills: 1 KATIE Hernandez.Sakina.MEMO * Start : 18-Mar-2015 Active Ventolin HFA [...] DAY * Quantity: 16 Refills: 2 KATIE Hernandez.Sakina.MEMO * Start : 25-Oct-2017 Active Claudette 180 [...] Immunization Name Dates Details Influenza Lot #: [id number] on: 19-May-2014 Pneumococcal polysaccharide vaccine, 23 valent Lot #: [id number] on: 09-Aug-2014 Fluzone Quadrivalent 0.5 ML Intramuscula r Suspension Prefilled Syringe Lot #: [id number] on: 02-May-2016 Prevnar 13 Intramuscular Suspension Lot #: [id number] on: 06-Aug-2016 Prevnar 13 Intramuscular Suspension Lot #: [id number] on: 06-Aug-2016 Fluzone Quadrivalent 0.5 ML Intramuscula r Suspension Lot #: [id number] on: 24-Apr-2017 Fluzone High-Dose 0.5 ML Intramuscular S uspension Prefilled Syringe Lot #: [id number] on: 29-Apr-2018 Tdap Not Administered Fluzone High-Dose [...] (finding) Vital Signs Date Test Result Details 1-Sdt-[id number]:[id number] Systolic blood pressure 119 mm[Hg] Status: Comments [...] On: 30-Oct-2019 10:40 Interventions Provided Medication Changes* Atenolol 50 MG Oral Tablet - Renew * Doxazosin Mesylate 4 MG Oral Tablet - Renew * Levothyroxine Sodium 88 MCG Oral Tablet - Renew * Olmesartan Medoxomil 40 MG Oral Tablet - Renew * Pravastatin Sodium 40 MG Oral Tablet - Renew Plan* f/u in 6 months will do labs at next visit. Instructions Name Dates Details Instructions not documented [...] Problem not documented On: 17-Feb-2019 13:00 [facility] Diagnosis: Problem not documented On: 28-Apr-2019 [...]
--- OUTSIDE RECORDS SUMMARY | 2020-02-21 00:42 | XMS REPORT | Summary of Care ---
Author Author SOTO PARADA Organization Unknown Address Unknown Phone Unavailable Care Team Providers Care Tobacco Sweeper Name Role Phone MEMO PARADA Unavailable Unavailable CROW King, ARIC Unavailable Unavailab Adolph ALLEN [place], [place]ER[place] Unavailable Unavailable HILLARY ALLEN [place], GREGG [place]TE[place] Unavailable Unavailable MEMO MONTES Unavailable Unavailable MAVERICK ALLEN [place], ROSARIO Coyle Unavailable Unavailable GERARD DSOUZA-C, ISABELLE [...] Status: Active Edema (782.3, R60.9) Status: Active Adult BMI 40.0-44.9 kg/sq m (V85.41, Z68 .41) Status: Active Medications Name Dates Details Doxazosin [...] DAY * Quantity: 16 Refills: 2 KATIE Hernandez.A.MEMO * Start : 25-Oct-2017 Active Claudette 180 [...] EVERY OTHER DAY * Refills: 0 ARIC MARAI M.D. * Start : 10-Jul-2018 Active Allergies [...] Immunization Name Dates Details Influenza Lot #: [id number] on: 19-May-2014 Pneumococcal polysaccharide vaccine, 23 valent Lot #: [id number] on: 09-Aug-2014 Fluzone Quadrivalent 0.5 ML Intramuscula r Suspension Prefilled Syringe Lot #: [id number] on: 02-May-2016 Prevnar 13 Intramuscular Suspension Lot #: [id number] on: 06-Aug-2016 Prevnar 13 Intramuscular Suspension Lot #: [id number] on: 06-Aug-2016 Fluzone Quadrivalent 0.5 ML Intramuscula r Suspension Lot #: [id number] on: 24-Apr-2017 Fluzone High-Dose 0.5 ML Intramuscular S uspension Prefilled Syringe Lot #: [id number] on: 29-Apr-2018 Tdap Not Administered Fluzone High-Dose [...] (finding) Vital Signs Date Test Result Details 4-[id number] Systolic blood pressure 119 mm[Hg] Status: Comments [...] Sodium 40 MG Oral Tablet - Renew Instructions Name Dates Details Instructions not documented [...] Problem not documented On: 17-Feb-2019 13:00 [facility] En[facility] Diagnosis: Problem not documented On: 28-Apr-2019 [...]
--- OUTSIDE RECORDS SUMMARY | 2020-02-21 00:42 | XMS REPORT | Summary of Care ---
Author SOTO Wilkerson M.A. Organization Unknown Address [facility] Phone Unavailable Care Team Providers Care Sample Processor Name Role Phone KATIE Latham, MEMO Unavailable Unavailable CROW King, ARIC Unavailable Unavailab Adolph ALLEN [place], CAT CACERES Unavailable Unavailable HILLARY ALLEN [place], GREGG ORTE[place] Unavailable Unavailable MEMO MONTES Unavailable Unavailable MAVERICK ALLEN [place], ROSARIO Coyle Unavailable Unavailable GERARD DSOUZA-C, ISABELLE [...] P.A. MEMO * Start : 25-Oct-2017 Active Claudette 180 MG TABS TAKE 1 TABLET DAILY NEEDED. * Refills: 0 Active Tylenol CAPS PRN * Refills: 0 Active Olmesartan Medoxomil 40 MG Oral Tablet TAKE 1 TABLET DAILY. * Quantity: 90 Refills: 1 KATIE P.A. MEMO * Start : 15-Oct-2016 Active Betamethasone Dipropionate [...] Immunization Name Dates Details Influenza Lot #: [id number] on: 19-May-2014 Pneumococcal polysaccharide vaccine, 23 valent Lot #: [id number] on: 09-Aug-2014 Fluzone Quadrivalent 0.5 ML Intramuscula r Suspension Prefilled Syringe Lot #: [id number] on: 02-May-2016 Prevnar 13 Intramuscular Suspension Lot #: [id number] on: 06-Aug-2016 Prevnar 13 Intramuscular Suspension Lot #: [id number] on: 06-Aug-2016 Fluzone Quadrivalent 0.5 ML Intramuscula r Suspension Lot #: [id number] on: 24-Apr-2017 Fluzone High-Dose 0.5 ML Intramuscular S uspension Prefilled Syringe Lot #: [id number] on: 29-Apr-2018 Tdap Not Administered Fluzone High-Dose [...] Details Planned Observations Planned Goals not documented Interventions Provided Plan* 1. HTN: well controlled * a. [...] Problem not documented On: 17-Feb-2019 13:00 Appointment; [facility] [place] Encounter Diagnosis: Problem not documented On: [...]
--- OUTSIDE RECORDS SUMMARY | 2020-02-21 00:42 | XMS REPORT | Summary of Care ---
Author Author [facility] Address [address] [place] [address] Phone Unavailable Care Team Providers Care Carpet Loom Fixer Name Role Phone KATIE Latham, MEMO Unavailable Unavailable CROW King, ARIC Unavailable Unavailab johann LAZO MD PA, CAT CACERES Unavailable Unavailable HILLARY ALLEN PA, GREGG ORTEGA Unavailable Unavailable KATIE ALFARO, MEMO Unavailable Unavailable MAVERICK ALLEN PA, ROSARIO Coyle Unavailable Unavailable GERARD ULLOA, ISABELLE Maloney Unavailable Unavailable MOISE ALLEN, DALTON Llamas Unavailable Unavailable VIOLET King, CAT Unavailable Unavailable Crow ALLEN, Aric Unavailable Unavailable Unavailable Unavailable Functional Status Name Dates Details Functional status health issues are not documented Status: Name Dates Details Cognitive status health issues are not d ocumented Status: Problems Name Dates Details Soft tissue lesion of knee region (729.9 9, M79.89) Status: Active Tear of meniscus of left knee (836.2, S8 3.207A) Status: Active Munroe cyst, 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, 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) Status: Active Tear of cartilage of left knee (836.2, S 83.207A) Status: Active Impaired fasting glucose (790.21, R73.01 ) Status: Active Flu vaccine need (V04.81, Z23) Status: Active Pressure in chest (786.59, R07.89) Status: Active Skin candidiasis (112.3, B37.2) Status: Active Encounter for mini-mental status examina tion Status: Active At moderate risk for fall (V15.88, Z91.8 1) Status: Active Medicare annual wellness visit, subseque nt (V70.0, Z00.00) Status: Active Acute frontal sinusitis (461.1, J01.10) Status: Active Dizziness (780.4, R42) Status: Active Arthritis of knee, 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, M17.11 ) Status: Active Depression screening (V79.0, Z13.31) Status: Active Otalgia of both ears (388.70, H92.03) Status: Active Bilateral hearing loss (389.9, H91.93) Status: Active Acute bacterial bronchitis (466.0, J20.8 ) Status: Active Hyperlipidemia (272.4, E78.5) Status: Active Lower extremity edema (782.3, R60.0) Status: Active Lymphedema (457.1, I89.0) Status: Active Sore throat (462, J02.9) Status: Active Otitis, serous (381.4, H65.90) Status: Active Acute bronchitis, viral (466.0, J20.8) Status: Active Depression screening negative (V79.0, Z1 3.31) Status: Active Chronic venous insufficiency (459.81, I8 7.2) Status: Active Edema (782.3, R60.9) Status: Active Acute otitis media (382.9, H66.90) Status: Active Maxillary sinusitis, acute (461.0, J01.0 0) Status: Active Otitis media, acute (382.9, H66.90) Status: Active Urinary incontinence (788.30, R32) Status: Active Advance directive discussed with patient (V65.49, Z71.89) Status: Active At risk for change in mental status (V15 .89, Z91.89) Status: Active Right knee pain (719.46, M25.561) Status: Active Vitamin D deficiency (268.9, E55.9) Status: Active Need for influenza vaccination (V04.81, Z23) Status: Active Atrophic vaginitis (627.3, N95.2) Status: Active Hematuria (599.70, R31.9) Status: Active Cellulitis of left lower extremity (682. 6, L03.116) Status: Active Abnormal glucose measurement (790.29, R7 3.09) Status: Active Osteoporosis screening (V82.81, Z13.820) Status: Active Post-menopausal (V49.81, Z78.0) Status: Active Breast cancer screening (V76.10, Z12.39) Status: Active Hypokalemia (276.8, E87.6) Status: Active Allergic rhinitis (477.9, J30.9) Status: Active Fall in home, sequela (909.4, W19.XXXS) Status: Active Thumb pain, left (729.5, M79.645) Status: Active Left renal mass (593.9, N28.89) Status: Active Acute UTI (599.0, N39.0) Status: Active Acute streptococcal pharyngitis (034.0, J02.0) Status: Active Unstable angina (411.1, I20.0) Status: Active Fatigue (780.79, R53.83) Status: Active Need for vaccination with 13-polyvalent pneumococcal conjugate vaccine (V03.82, Z23) Status: Active Encounter for hepatitis C virus screenin g test for high risk patient (V73.89, Z11.59) Status: Active Left shoulder pain (719.41, M25.512) Status: Active Dermatitis (692.9, L30.9) Status: Active Allergic reaction to drug (995.27, T78.4 0XA) Status: Active Motion sickness (994.6, T75.3XXA) Status: Active Acute bronchitis (466.0, J20.9) Status: Active Bilateral leg edema (782.3, R60.0) Status: Active Localized osteoarthrosis of left hip (71 5.35, M16.12) Status: Active Left knee pain (719.46, M25.562) Status: Active Post-menopausal osteoporosis (733.01, M8 1.0) Status: Active Elevated sed rate (790.1, R70.0) Status: Active Hives (708.9, L50.9) Status: Active Pharyngitis (462, J02.9) Status: Active Herpes zoster (053.9, B02.9) Status: Active Uncontrolled hypertension (401.9, I10) Status: Active Need for pneumococcal vaccination (V03.8 2, Z23) Status: Active Rheumatoid arthritis (714.0, M06.9) Status: Active Prediabetes (790.29, R73.03) Status: Active Adult BMI 40.0-44.9 kg/sq m (V85.41, Z68 .41) Status: Active Hypothyroidism (244.9, E03.9) Status: Active High triglycerides (272.1, E78.1) Status: Active Essential (primary) hypertension (401.9, I10) Status: Active Stasis edema of left lower extremity (45 9.30, I87.302) Status: Active Left leg pain (729.5, M79.605) Status: Active 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, H90.5) Status: Active Medications Name Dates Details Doxazosin Mesylate 4 MG Oral Tablet TAKE 1 TABLET DAILY DIRECTED Quantity: 90 KATIE P.A. MEMO * Start : 28-Jan-2014 Active Levothyroxine Sodium 88 MCG Oral Tablet TAKE ONE TABLET BY MOUTH EVERY DAY DIRECTED * Quantity: 90 Refills: 1 KATIE P.A.NICOLEMEMO * Start : 18-Mar-2015 Active Olmesartan Medoxomil 40 MG Oral Tablet TAKE 1 TABLET DAILY. * Quantity: 90 Refills: 1 KATIE P.A.NICOLEMEMO * Start : 15-Oct-2016 Active Pravastatin Sodium 40 MG Oral Tablet TAKE 1 TABLET Daily NEEDS OFFICE VISIT * Quantity: 90 Refills: 1 KATIE P.A.NICOLEMEMO * Start : 28-Feb-2018 Active Betamethasone Dipropionate Aug 0.05 % External Ointment APPLY SPARINGLY TO AFFECTED AREA(S) TWICE DAILY * Quantity: 1 Refills: 1 KATIE P.A. MEMO * Start : 25-Feb-2018 Active 45 GM Tube Fluticasone Propionate 50 MCG/ACT Nasal Suspension USE 1 SPRAY IN EACH NOSTRIL TWICE A DAY * Quantity: 16 Refills: 2 KATIE P.A.NICOLEMEMO * Start : 25-Oct-2017 Active amLODIPine Besylate 5 MG Oral Tablet TAKE 1 TABLET Daily NEEDS OFFICE VISIT * Quantity: 90 Refills: 3 ARIC MARIA M.D. * Start : 12-Jan-2015 Active Aspirin Low Dose 81 MG Oral [...] P.A., MEMO * Start : 21-Jul-2014 Active Claudette 180 MG TABS TAKE 1 TABLET DAILY NEEDED. * Refills: 0 Active Allergies and Adverse [...] Immunization Name Dates Details Influenza Lot #: [id number] on: 19-May-2014 Pneumococcal polysaccharide vaccine, 23 valent Lot #: [id number] on: 09-Aug-2014 Fluzone Quadrivalent 0.5 ML Intramuscula r Suspension Prefilled Syringe Lot #: [id number] on: 02-May-2016 Prevnar 13 Intramuscular Suspension Lot #: [id number] on: 06-Aug-2016 Prevnar 13 Intramuscular Suspension Lot #: [id number] on: 06-Aug-2016 Fluzone Quadrivalent 0.5 ML Intramuscula r Suspension Lot #: [id number] on: 24-Apr-2017 Fluzone High-Dose 0.5 ML Intramuscular S uspension Prefilled Syringe Lot #: [id number] on: 29-Apr-2018 Tdap Not Administered Fluzone High-Dose [...] Problem not documented On: 17-Feb-2019 13:00 Appointment; [facility], ECHO Encounter Diagnosis: Problem not documented On: [...]
--- OUTSIDE RECORDS SUMMARY | 2020-02-21 00:43 | XMS REPORT | Summary of Care ---
Author Author SOTO PARADA Organization Unknown Address Unknown Phone Unavailable Care Team Providers Care Hull And Deck Remover Name Role Phone MEMO PARADA Unavailable Unavailable CROW King, ARIC Unavailable Unavailab Adolph ALLEN RI, CAT CACERES Unavailable Unavailable HILLARY ALLEN RI, GREGG ORTEGA Unavailable Unavailable MEMO MONTES Unavailable Unavailable MAVERICK ALLEN RI, ROSARIO Coyle Unavailable Unavailable GERARD DSOUZA-C, ISABELLE [...] Acute streptococcal pharyngitis (034.0, J02.0) Status: Active Skin candidiasis (112.3, B37.2) Status: [...] visit, subseque nt (V70.0, Z00.00) Status: Active Breast cancer screening (V76.10, Z12.39) [...] Status: Active Prediabetes (790.29, R73.03) Status: Active Hyperlipidemia (272.4, E78.5) Status: Active Mitral and aortic regurgitation (396.3, I08.0) Status: Active Acute UTI (599.0, N39.0) Status: Active Acute frontal sinusitis (461.1, J01.10) Status: Active Essential (primary) hypertension (401.9, I10) Status: Active Medications Name Dates Details Doxazosin Mesylate 4 MG Oral Tablet TAKE 1 TABLET DAILY DIRECTED Quantity: 90 KATIE Hernandez.Sakina.MEMO * Start : 28-Jan-2014 Active Levothyroxine Sodium 88 MCG Oral Tablet TAKE ONE TABLET BY MOUTH EVERY DAY DIRECTED * Quantity: 90 Refills: 1 KATIE Hernandez.NICOLE DasICIA * Start : 18-Mar-2015 Active Ventolin HFA [...] Active Refresh SOLN * Refills: 0 Active Amoxicillin-Pot Clavulanate 875-125 MG Oral Tablet TAKE 1 TABLET EVERY 12 HOURS DAILY. * Quantity: 20 Refills: 0 KATIE P.A., MEMO * Start : 04-Dec-2019 Active Allergies and Adverse Reactions Name Dates [...] Z86.69) Status: Resolved Procedures Procedure Dates Details [QL] CULTURE, URINE, ROUTINE Date: 04-Dec-2019 [N] 2D Echo complete, with Doppler [id number] Date: 30-Oct-2019 History of Sinus Surgery Completed History of Total Abdominal Hysterectomy With Removal Of Both Ovaries Completed Immunization Name Dates Details Influenza Lot #: [id number] on: 19-May-2014 Pneumococcal polysaccharide vaccine, 23 valent Lot #: [id number] on: 09-Aug-2014 Fluzone Quadrivalent 0.5 ML Intramuscula r Suspension Prefilled Syringe Lot #: [id number] on: 02-May-2016 Prevnar 13 Intramuscular Suspension Lot #: [id number] on: 06-Aug-2016 Prevnar 13 Intramuscular Suspension Lot #: [id number] on: 06-Aug-2016 Fluzone Quadrivalent 0.5 ML Intramuscula r Suspension Lot #: [id number] on: 24-Apr-2017 Fluzone High-Dose 0.5 ML Intramuscular S uspension Prefilled Syringe Lot #: [id number] on: 29-Apr-2018 Tdap Not Administered Fluzone High-Dose [...] (finding) Vital Signs Date Test Result Details :13 Systolic blood pressure 147 mm[Hg] Status: Comments [...] in Scale Results Date Description Value Details :15 [O] Urine Dipstick (In Office) Glucose normal (Normal) LEUKOCYTES neg (Normal) NITRITE neg (Normal) UROBILINOGEN neg (Normal) PROTEIN trace pH 5 URINE BLOOD neg (Normal) SPECIFIC GRAVITY 1.015 KETONES neg (Normal) BILIRUBIN neg (Normal) COLOR URINE yellow (Normal) APPEARANCE clear (Normal) Plan of Care Name Dates Details Planned Observations Planned Goals not documented Planned Encounters Appointment; MORGAN ADEN On: 29-Apr-2020 10:00 Appointment; ARIC MARIA M .D. On: 29-Apr-2020 11:00 Interventions Provided Medication Changes* Amoxicillin-Pot Clavulanate 875-125 MG Oral Tablet - Start * Ventolin HFA 108 (90 Base) MCG/ACT Inhalation Aerosol Solution - Renew Labs/Procedures/Imaging* [QL] CULTURE, URINE, ROUTINE; To Be Done: 04 Dec 2019 * [O] Urine Dipstick (In Office); Done: 04 Dec 2019 Plan* monitor BP, check in 2 weeks if still elevated. * Await urine culture for results. Instructions Name Dates Details Instructions not documented [...] Problem not documented On: 17-Feb-2019 13:00 Appointment; [facility], ECHO Encounter Diagnosis: Problem not documented On: [...]
--- NOTE | 2020-02-21 01:30 | NUR ---
SPOKE WITH ARNOLD RE' OUT OF COVID TESTS. AOFawn STATES SHE WILL HAVE HOSP DO COVID TEST ON ARRIVAL TO ROOM.
--- NOTE | 2020-02-21 02:00 | NUR ---
CALLED [facility] FOR TRANSPORT OF PT TO [facility] RM [address]..ETA 30-45MINS. ETA [phone].
--- NOTE | 2020-02-21 02:08 | NUR ---
REPORT TO PAULINE GONZALEZ
--- OUTSIDE RECORDS SUMMARY | 2020-02-21 02:40 | XMS REPORT | Continuity of Care Document ---
Author Author BuckSOTO Buck Address Unknown Phone Unavailable Care Team Providers Care Ironworker Foreman Name Role Phone [employer] Unavailable Un available Problems Problem Status Onset Date Classification Date Reported Comments Source Rheumatoid Arthritis Active 08/26/2013 [facility] Hypertension Active 08/26/2013 [facility] Acute Conjunctivitis Active 08/26/2013 [facility] Periorbital Cellulitis Active 08/26/2013 [facility] Acute Upper Respiratory Infection Active 08/26/2013 [facility] Cellulitis Active 08/26/2013 [facility] Hypothyroidism Active 08/26/2013 [facility] Medications Medication Details Route Status Patient Instructions Ordering Provider Order Date Source Betamethasone Dipropionate Aug 0.05 % External Ointmen t ; Start Date: 08/26/2013; End Date: (Active) Active 08/26/2013 [facility] Mupirocin 2 % External Ointment ; Start Date: 08/26/2013; End Date: (Active) Active 08/26/2013 [facility] Clindamycin HCl 300 MG Oral Capsule ; Start Date: 08/26/2013; End Date: (Active) Active 08/26/2013 [facility] Sulfamethoxazole-TMP DS 800-160 MG Oral Tablet ; Start Date: 08/26/2013; End Date: (Active) Active 08/26/2013 [facility] Cortisporin-TC 3.3-3-10-0.5 MG/ML Otic Suspension ; Start Date: 08/26/2013; End Date: (Active) Active 08/26/2013 [facility] Amoxicillin-Pot Clavulanate 500-125 MG Oral Tablet ; Start Date: 05/13/2013; End Date: (Active) Active 05/13/2013 [facility] Cefdinir 300 MG Oral Capsule ; Start Date: 02/24/2013; End Date: (Active) Active 02/24/2013 [facility] Levothyroxine Sodium 88 MCG Oral Tablet ; Start Date: ; End Date: (Active) Inactive [facility] Atenolol 100 MG Oral Tablet ; Start Date: ; End Date: (Active) Inactive [facility] Doxazosin Mesylate 2 MG Oral Tablet (Active) Active [facility] Levothyroxine Sodium 88 MCG Oral Tablet (Active) Active [facility] Atenolol 100 MG Oral Tablet ( Active) Active [facility] Benicar HCT 40-12.5 MG Oral Tablet (Active) Active [facility] Antivert 25 MG Oral Tablet (A ctive) Active [facility] Phenergan 25 MG TABS (Active) Active [facility] Omnicef 300 MG CAPS (Active) Active [facility] PredniSONE 10 MG Oral Tablet (Active) Active [facility] Allergies, Adverse Reactions, Alerts Substance Category Reaction Severity Reaction type Status Date Reported Comments Source No Known Drug Allergies drug a llergy drug aller gy Active [facility] Immunizations No Data Provided for This [...] ADM Date DC Date Status Source AUDIT [id number] 02/24/2013 02/24/2013 [facility] ECL, Provi maggie: MEMO WILSON, Status: Pen, Time: 8:30 AM [id number] 02/25/20 13 02/24/2013 [facility] AUDIT [id number] 05/13/2013 05/13/2013 [facility] AUDIT [id number] 08/26/2013 08/26/2013 [facility] FUMary, Provluz maria maggie: MEMO WILSON, Status: Pen, Time: 1:00 PM [id number] 08/28/19 14 08/26/2013 [facility] Procedures No Data Provided for This Section Assessment and Plan No Data Provided for This Section Plan of Care Plan of Care Date Source [QLH] CBC (INCLUDES DIFF/PLT) 05/13/2013 Routine[QLH] CMP W/EGFR 05/13/2013 Routine[Q] LIPID PANEL WITH REFLEX TO DIRECT LDL 05/13/2013 Routine[[facility]] TSH, 3RD GENERATION 05/13/2013 Routine 05/13/2013 [facility] Social History Social History Date Source Never A Smoker (Active) 08/26/2013 [facility] Family History No Data Provided for This Section Advance Directives Order Name Results Value Date Source Advance Directives Advance Dir ectives No Advance Directives available. 08/26/2013 [facility] Advance Directives Advance Dir ectives No Advance Directives available. 05/13/2013 [facility] Advance Directives Advance Dir ectives No Advance Directives available. 02/24/2013 [facility] Functional Status No Data Provided for This Section
--- OUTSIDE RECORDS SUMMARY | 2020-02-21 02:40 | XMS REPORT | Continuity of Care Document ---
Author Author [facility] t Organization [facility] Address [facility] [place] [address] Phone Unavailable Care Team Providers Care Broomcorn Scraper Name Role Phone Ayaz MURRY Attphys Unavailable MEMO WILSON P.AAshkan Attphys Unavailable MARIAH MARIA M.D. Attphys Unavaila GREGG Cerda M.D. Attphys Unavailable VASCULAR, SE Attphys Unavailable [facility], ECHO Attphys Unavailable DALTON PHIPPS M.D. Attphys Unavailable JALEESA FLORES Attphys Unavailable ISABELLE GEE APRN Attphys Unavailable SCOTTY GUTIERREZ M.D. Attphys Unavailable [facility], NUCLEAR Attphys Unavailable LIUDMILA FAGAN, P.AAshkan Attphys Unavailable Problems Condition Name Condition Details Condition Category Status Onset Date Resolution Date Last Treatment Date Treating Clinician Comments Source Encounter for mini-mental status examination Encounter for mini-mental status examination Problem Active [facility] History of Acute laryngitis History of Acute laryngitis Problem Resolved [facility] Maxillary sinusitis, acute Maxillary sinusitis, acute Problem Active [facility] History of acute sinusitis History of acute sinusitis Problem Resolved [facility] History of gastroenteritis History of gastroenteritis Problem Resolved [facility] History of Hematoma History of Hematoma Problem Resolved [facility] Left shoulder pain Left shoulder pain Problem Active [facility] History of Plantar fasciitis History of Plantar fasciitis Problem Re solved [facility] History of serous otitis media History of serous otitis media Probl em Resolved [facility] Rheumatoid arthritis Rheumatoid arthritis Problem Active [facility] Need for influenza vaccination Need for influenza vaccination Problem Active [facility] Essential (primary) hypertension Essential (primary) hypertensio n Problem Active [facility] Herpes zoster Herpes zoster Problem Active [facility] Sore throat Sore throat Problem Active [facility] H[facility] Elevated sed rate Elevated sed rate Problem Active [facility] Post-menopausal osteoporosis Post-menopausal osteoporosis Problem Active [facility] Left knee pain Left knee pain Problem Active [facility] Soft tissue lesion of knee region Soft tissue lesion of knee reg ion Problem Active [facility] Tear of cartilage of left knee Tear of cartilage of left knee Problem Active [facility] Munroe cyst, left Munroe cyst, left Problem Active [facility] Localized osteoarthrosis of left hip Localized osteoarthrosi s of left hip Problem Active [facility] Lower extremity edema Lower extremity edema Problem Active [facility] Acute bronchitis Acute bronchitis Problem Active [facility] Motion sickness Motion sickness Problem Active [facility] Impaired fasting glucose Impaired fasting glucose Problem Active [facility] Allergic reaction to drug Allergic reaction to drug Problem Active [facility] Dermatitis Dermatitis [facility] Encounter for hepatitis C virus screening test for hig h risk patient Encounter for hepatitis C virus screening test for high risk patient Problem Active [facility] Fatigue Fatigue Problem Active [facility] Pressure in chest Pressure in chest Problem Active [facility] Unstable angina Unstable angina Problem Active [facility] Acute streptococcal pharyngitis Acute streptococcal pharyngitis Pro blem Active [facility] Acute UTI Acute UTI Problem [facility] Skin candidiasis Skin candidiasis Problem Active [facility] Allergic rhinitis Allergic rhinitis Problem Active [facility] Hypokalemia Hypokalemia Problem Active [facility] At moderate risk for fall At moderate risk for fall Problem Active [facility] Medicare annual wellness visit, subsequent Medicare an nual wellness visit, subsequent Problem Active [facility] Acute frontal sinusitis Acute frontal sinusitis Problem Active [facility] Breast cancer screening Breast cancer screening Problem Active [facility] Post-menopausal Post-menopausal Problem Active [facility] Osteoporosis screening Osteoporosis screening Problem Active [facility] Abnormal glucose measurement Abnormal glucose measurement Problem Active [facility] Cellulitis of left lower extremity Cellulitis of left lower extr emity Problem Active [facility] Hematuria Hematuria Problem [facility] Acute otitis media Acute otitis media Problem Active [facility] Acute bronchitis, viral Acute bronchitis, viral Problem Active [facility] Left leg pain Left leg pain Problem Active [facility] Stasis edema of left lower extremity Stasis edema of left lo wer extremity Problem Active [facility] Otitis, serous Otitis, serous Problem Active [facility] Depression screening negative Depression screening negative Problem Active [facility] Chronic venous insufficiency Chronic venous insufficiency Problem Active [facility] Edema Edema Problem Active [facility] High triglycerides High triglycerides Problem Active [facility] Hypothyroidism Hypothyroidism Problem Active [facility] Adult BMI 40.0-44.9 kg/sq m Adult BMI 40.0-44.9 kg/sq m Problem Active [facility] Prediabetes Prediabetes Problem Active [facility] Hyperlipidemia Hyperlipidemia Problem Active [facility] Mitral and aortic regurgitation Mitral and aortic regurgitation Pro blem Active [facility] Asymmetric SNHL (sensorineural hearing loss) Asymmetri c SNHL (sensorineural hearing loss) Problem Active [facility] Bilateral hearing loss Bilateral hearing loss Problem Active [facility] Otalgia of both ears Otalgia of both ears Problem Active [facility] Urinary incontinence Urinary incontinence Problem Active [facility] Advance directive discussed with patient Advance direc tive discussed with patient Problem Active [facility] At risk for change in mental status At risk for change in mental status Problem Active [facility] Arthritis of knee, right Arthritis of knee, right Problem Active [facility] Right knee pain Right knee pain Problem Active [facility] Vitamin D deficiency Vitamin D deficiency Problem Active [facility] Dizziness Dizziness Problem Active [facility] Atrophic vaginitis Atrophic vaginitis Problem Active [facility] Fall in home, sequela Fall in home, sequela Problem Active [facility] Thumb pain, left Thumb pain, left Problem Active [facility] Left renal mass Left renal mass Problem Active [facility] Lymphedema Lymphedema Problem [facility] Rheumatoid Arthritis Rheu matoid Arthritis Active [facility] Problem Active 2013-08-26 16:36:39 Nkechi Dickson Hypertension Hype rtension Active 08/26/2013 [facility] Problem Active 2013-08-26 16:36:39 Chi Dickson Acute Conjunctivitis Acut e Conjunctivitis Active 08/26/2013 [facility] Problem Active 2013-08-26 16:36:39 Nkechi Dickson Periorbital Cellulitis Maria Antonia orbital Cellulitis Active 08/26/2013 [facility] Problem Active 2013-08-26 16:36:39 Nkechi Dickson Acute Upper Respiratory Infection Acute Upper Respiratory Infection Active 08/26/2013 [facility] Problem Active 2013-08-26 16:36:39 Nkechi Dickson Cellulitis Cell ulitis Active 08/26/2013 [facility] Problem Active 2013-08-26 16:36:39 Nkechi Dickson Hypothyroidism Hypo thyroidism Active 08/26/2013 [facility] Problem Active 2013-08-26 16:36:39 M chikis Dickson Allergies, Adverse Reactions, Alerts Allergy Name Allergy Type Status Severity Reaction(s) Onset Date Inacti ve Date Treating Clinician Comments Source Bactrim DS TABS Allergy to drug (finding) Active [facility] Cephalexin Monohydrate TABS Allergy to drug (finding) Active [facility] Cephalosporins Allergy to drug (finding) Inactive [facility] clindamycin Allergy to drug (finding) Inactive [facility] Almonds Allergy to substance (finding) Active [facility] Animal dander - Cats Allergy to substance (finding) Active [facility] No Known Drug Allergies No Known Drug Allergies Active [facility] Dickson Family History Family Member Diagnosis Comments Start Date Stop Date Source Mother Family history of congestive heart failure [facility] Mother Family history of Hypertension [facility] Father Family history of Hypertension [facility] Father Family history of Coronary artery disease [facility] Brother Family history of hypertension [facility] Social History Social Habit Start Date Stop Date Quantity Comments Source Social History 2013-08-26 16:36:39 2013-08-26 16:36:39 Nkechi Dickson Smoking Status Start Date Stop Date Source Never smoked tobacco (finding) [facility] Medications Ordered Medication Name Filled Medication Name Start Date Stop Da te Current Medication? Ordering Clinician Indication Dosage Frequency Signature (SIG) Comments Components Source Amoxicillin-Pot Clavulanate 875-125 MG Oral Tablet [place] xicillin-Pot Clavulanate 875-125 MG Oral Tablet 2019-12-04 00:00:00 Yes MEMO WILSON P.A. Q12H TAKE 1 TABLET EVERY 12 HOURS DAILY. [facility] Aspirin Low Dose 81 MG Oral Tablet Delayed Release Asp irin Low Dose 81 MG Oral Tablet Delayed Release 2018-07-10 00:00:00 Yes MARIAH ESTEBAN M.D. 1 QD TAKE 1 TABLET EVERY OTHER DAY [facility] Pravastatin Sodium 40 MG Oral Tablet Pravastatin Sodium 40 M G Oral Tablet 2018-02-28 00:00:00 Yes MEMO WILSON P.A. QD TAKE 1 TABLET Daily NEEDS OFFICE VISIT [facility] Betamethasone Dipropionate Aug 0.05 % External Ointmen t Betamethasone Dipropionate Aug 0.05 % External Ointment 2018-02-25 00:00:00 Ye s MEMO KATIE P.A. Q0.5D APPLY SPARINGLY TO AFFECTED AREA(S) TWIC E DAILY [facility] Fluticasone Propionate 50 MCG/ACT Nasal Suspension Flu ticasone Propionate 50 MCG/ACT Nasal Suspension 2017-10-25 15:58:00 Yes MEMO KATIE P.A. USE 1 SPRAY IN EACH NOSTRIL TWICE A DAY [facility] Olmesartan Medoxomil 40 MG Oral Tablet Olmesartan Medoxomil 40 MG Oral Tablet 2016-10-15 00:00:00 Yes MEMO WILSON P.A. 1 QD TAKE 1 TABLET DAILY. [facility] Levothyroxine Sodium 88 MCG Oral Tablet Levothyroxine Sodium 88 MCG Oral Tablet 2015-03-18 00:00:00 Yes MEMO WILSON P.A. TAKE ONE TABLET BY MOUTH EVERY DAY DIRECTED [facility] amLODIPine Besylate 5 MG Oral Tablet amLODIPine Besylate 5 M G Oral Tablet 2015-01-12 00:00:00 Yes MARIAH MARIA M.D. QD TAKE 1 TABLET BY MOUTH DAILY [facility] Atenolol 50 MG Oral Tablet Atenolol 50 MG Oral Tablet 2014-07-21 00:0 0:00 Yes MEMO CRUZ P.A. Q0.5D TAKE 1 TABLET TWICE DAILY. [facility] Doxazosin Mesylate 4 MG Oral Tablet Doxazosin Mesylate 4 MG Oral Tablet 2014-01-28 00:00:00 Yes MEMO CRUZ P.A. 1 QD TAKE 1 TABLET DAILY DIRECTED [facility] Ventolin HFA 108 (90 Base) MCG/ACT Inhalation Aerosol Solution Ventolin HFA 108 (90 Base) MCG/ACT Inhalation Aerosol Solution 2013-09-29 00:00:00 Yes MEMO WILSON P.A. 2 INHALE 2 PUFFS EVERY 4 HOURS NEEDED [facility] Doxazosin Mesylate 2 MG Oral Tablet [...] Start Date: 02/24/2013; End Date: (Active) Nkechi Slaterann Levothyroxine Sodium 88 MCG Oral Tablet Yes ; Start Date: ; End Date: (Active) Nkechi Slaterann Atenolol 100 MG Oral Tablet Yes ; Start Date: ; End Date: (Active) Nkechi Dickson Claudette 180 MG TABS Claudette 180 MG TABS Yes 1 TAKE 1 TABLET DAILY NEEDED. [facility] Tylenol CAPS Tylenol CAPS Yes PRN [facility] Refresh SOLN Refresh SOLN Yes [facility] Immunizations Ordered Immunization Name Filled Immunization Name Date Status Comments Source Fluzone High-Dose 0.5 ML Intramuscular Suspension Prefilled Syringe 2019-05-08 00:00:00 Completed [facility] Fluzone High-Dose 0.5 ML Intramuscular Suspension Prefilled Syringe 2018-04-29 13:13:00 Completed [facility] Fluzone Quadrivalent 0.5 ML Intramuscular Suspension 2017-04-24 14:47:00 Completed [facility] Prevnar 13 Intramuscular Suspension 2016-08-06 15:34:00 Co mpleted [facility] Prevnar 13 Intramuscular Suspension 2016-08-06 09:16:00 Co mpleted [facility] Fluzone Quadrivalent 0.5 ML Intramuscular Suspension Prefill ed Syringe 2016-05-02 11:26:00 Completed [facility] Pneumococcal polysaccharide vaccine, 23 valent 2014-08 16:09:00 Completed [facility] Influenza 2014-05-19 16:30:00 Completed [facility] Vital Signs Vital Name Observation Time Observation Value Comments Source Systolic blood pressure 2019-12-04 14:13:00 147 mm[Hg] Loca tion: LUE; Position: Sitting [facility] Diastolic blood pressure 2019-12-04 14:13:00 71 mm[Hg] Loc ation: LUE; Position: Sitting [facility] Body height 2019-12-04 14:13:00 63 [in_us] [facility] Weight 2019-12-04 14:13:00 227.00 [lb_av] [facility] Body mass index (BMI) [Ratio] 2019-12-04 14:13:00 40.21 kg/m2 [facility] Body temperature 2019-12-04 14:13:00 98.5 [degF] Method: [facility] Heart Rate 2019-12-04 14:13:00 64 /min [facility] Respiratory rate 2019-12-04 14:13:00 16 /min [facility] Systolic blood pressure 2019-09-07 13:30:00 119 mm[Hg] Loca tion: LUE; Position: Sitting [facility] Diastolic blood pressure 2019-09-07 13:30:00 72 mm[Hg] Loc ation: LUE; Position: Sitting [facility] Body height 2019-09-07 13:30:00 63 [in_us] [facility] Weight 2019-09-07 13:30:00 232.5 [lb_av] [facility] Body mass index (BMI) [Ratio] 2019-09-07 13:30:00 41.19 kg/m2 [facility] Body temperature 2019-09-07 13:30:00 97.9 [degF] Method: [facility] Respiratory rate 2019-09-07 13:30:00 16 /min [facility] Heart Rate 2019-09-07 13:30:00 66 /min [facility] Systolic blood pressure 2019-08-03 13:25:00 117 mm[Hg] Loca tion: LUE; Position: Sitting [facility] Diastolic blood pressure 2019-08-03 13:25:00 70 mm[Hg] Loc ation: LUE; Position: Sitting [facility] Body height 2019-08-03 13:25:00 63 [in_us] [facility] Weight 2019-08-03 13:25:00 236 [lb_av] [facility] Body mass index (BMI) [Ratio] 2019-08-03 13:25:00 41.81 kg/m2 [facility] Body temperature 2019-08-03 13:25:00 97.9 [degF] Method: Temporal [facility] Heart Rate 2019-08-03 13:25:00 63 /min [facility] Respiratory rate 2019-08-03 13:25:00 16 /min [facility] BP Systolic 2019-04-28 12:53:00 132 mm[Hg] Location: RUE; Positi on: Sitting [facility] BP Diastolic 2019-04-28 12:53:00 79 mm[Hg] Location: RUE; Positi on: Sitting [facility] Heart Rate 2019-04-28 12:53:00 61 /min Location: R Radial; Q uality: Normal [facility] BP Systolic 2019-04-28 12:52:00 151 mm[Hg] Location: RUE; Positi on: Sitting [facility] BP Diastolic 2019-04-28 12:52:00 76 mm[Hg] Location: RUE; Positi on: Sitting [facility] Heart Rate 2019-04-28 12:52:00 69 /min Location: R Radial; Q uality: Normal [facility] Height 2019-04-28 12:52:00 63 [in_us] [facility] Weight 2019-04-28 12:52:00 241 [lb_av] [facility] Body Mass Index Calculated 2019-04-28 12:52:00 42.69 kg/m2 [facility] BP Systolic 2019-02-17 12:59:00 121 mm[Hg] Location: LUE; Positi on: Sitting [facility] BP Diastolic 2019-02-17 12:59:00 70 mm[Hg] Location: LUE; Positi on: Sitting [facility] Height 2019-02-17 12:59:00 63 [in_us] [facility] Weight 2019-02-17 12:59:00 239.3125 [lb_av] [facility] Body Mass Index Calculated 2019-02-17 12:59:00 42.39 kg/m2 [facility] Temperature 2019-02-17 12:59:00 98.6 [degF] Method: Temporal [facility] Respiration Rate 2019-02-17 12:59:00 16 /min [facility] Heart Rate 2019-02-17 12:59:00 69 /min [facility] O2 SAT 2019-02-17 12:59:00 95 % [facility] BP Systolic 2018-11-27 13:52:00 136 mm[Hg] Location: LUE; Positi on: Sitting [facility] BP Diastolic 2018-11-27 13:52:00 79 mm[Hg] Location: LUE; Positi on: Sitting [facility] Height 2018-11-27 13:52:00 63 [in_us] [facility] Weight 2018-11-27 13:52:00 234.1875 [lb_av] [facility] Body Mass Index Calculated 2018-11-27 13:52:00 41.48 kg/m2 [facility] Heart Rate 2018-11-27 13:52:00 78 /min [facility] Respiration Rate 2018-11-27 13:52:00 16 /min [facility] BP Systolic 2018-11-13 13:24:00 130 mm[Hg] Location: LUE; Positi on: Sitting [facility] BP Diastolic 2018-11-13 13:24:00 77 mm[Hg] Location: LUE; Positi on: Sitting [facility] Height 2018-11-13 13:24:00 63 [in_us] [facility] Weight 2018-11-13 13:24:00 236 [lb_av] [facility] Body Mass Index Calculated 2018-11-13 13:24:00 41.81 kg/m2 [facility] Heart Rate 2018-11-13 13:24:00 65 /min [facility] Respiration Rate 2018-11-13 13:24:00 16 /min [facility] BP Systolic 2018-11-03 11:16:00 130 mm[Hg] Location: LUE; Positi on: Standing [facility] BP Diastolic 2018-11-03 11:16:00 72 mm[Hg] Location: LUE; Positi on: Standing [facility] BP Systolic 2018-11-03 11:15:00 129 mm[Hg] Location: LUE; Positi on: Sitting [facility] BP Diastolic 2018-11-03 11:15:00 71 mm[Hg] Location: LUE; Positi on: Sitting [facility] BP Systolic 2018-11-03 11:14:00 127 mm[Hg] Location: LUE; Positi on: Supine [facility] BP Diastolic 2018-11-03 11:14:00 66 mm[Hg] Location: LUE; Positi on: Supine [facility] Heart Rate 2018-11-03 11:14:00 73 /min [facility] BP Systolic 2018-11-03 11:12:00 150 mm[Hg] Location: LUE; Positi on: Sitting [facility] BP Diastolic 2018-11-03 11:12:00 75 mm[Hg] Location: LUE; Positi on: Sitting [facility] Heart Rate 2018-11-03 11:12:00 66 /min [facility] Height 2018-11-03 11:12:00 63 [in_us] [facility] Weight 2018-11-03 11:12:00 240 [lb_av] [facility] Body Mass Index Calculated 2018-11-03 11:12:00 42.51 kg/m2 [facility] Temperature 2018-11-03 11:12:00 97.8 [degF] Method: Temporal [facility] Respiration Rate 2018-11-03 11:12:00 16 /min [facility] BP Systolic 2018-08-12 15:20:00 135 mm[Hg] Location: LUE; Positi on: Sitting [facility] BP Diastolic 2018-08-12 15:20:00 78 mm[Hg] Location: LUE; Positi on: Sitting [facility] Temperature 2018-08-12 15:20:00 99.2 [degF] Method: Temporal [facility] Respiration Rate 2018-08-12 15:20:00 16 /min [facility] Heart Rate 2018-08-12 15:20:00 60 /min [facility] Height 2018-08-12 15:19:00 63 [in_us] [facility] Weight 2018-08-12 15:19:00 236 [lb_av] [facility] Body Mass Index Calculated 2018-08-12 15:19:00 41.81 kg/m2 [facility] BP Systolic 2018-06-02 08:18:00 124 mm[Hg] Location: LUE; Positi on: Sitting [facility] BP Diastolic 2018-06-02 08:18:00 73 mm[Hg] Location: LUE; Positi on: Sitting [facility] Height 2018-06-02 08:18:00 63 [in_us] [facility] Weight 2018-06-02 08:18:00 235 [lb_av] [facility] Body Mass Index Calculated 2018-06-02 08:18:00 41.63 kg/m2 [facility] Temperature 2018-06-02 08:18:00 97.9 [degF] Method: Temporal [facility] Respiration Rate 2018-06-02 08:18:00 16 /min [facility] Heart Rate 2018-06-02 08:18:00 74 /min [facility] BP Systolic 2018-04-30 13:42:00 159 mm[Hg] Location: RLE; Positi on: Sitting [facility] BP Diastolic 2018-04-30 13:42:00 77 mm[Hg] Location: RLE; Positi on: Sitting [facility] Height 2018-04-30 13:42:00 63 [in_us] [facility] Weight 2018-04-30 13:42:00 236.5 [lb_av] [facility] ity [facility] Body Mass Index Calculated 2018-04-30 13:42:00 41.89 kg/m2 [facility] Temperature 2018-04-30 13:42:00 98.2 [degF] Method: Oral [facility] Heart Rate 2018-04-30 13:42:00 69 /min [facility] ty [facility] Respiration Rate 2018-04-30 13:42:00 16 /min [facility] BP Systolic 2018-04-29 10:57:00 117 mm[Hg] Location: LUE; Positi on: Sitting [facility] BP Diastolic 2018-04-29 10:57:00 69 mm[Hg] Location: LUE; Positi on: Sitting [facility] Height 2018-04-29 10:57:00 63 [in_us] [facility] Weight 2018-04-29 10:57:00 235 [lb_av] Universi ty [facility] Body Mass Index Calculated 2018-04-29 10:57:00 41.63 kg/m2 [facility] Temperature 2018-04-29 10:57:00 97.4 [degF] Method: [facility]poral [facility] Heart Rate 2018-04-29 10:57:00 78 /min Universi ty [facility] Respiration Rate 2018-04-29 10:57:00 16 /min Univ ersity [facility] BP Systolic 2018-02-25 14:12:00 129 mm[Hg] Location: ARLIN; Positi on: Sitting [facility] BP Diastolic 2018-02-25 14:12:00 75 mm[Hg] Location: ARLIN; Positi on: Sitting [facility] Height 2018-02-25 14:12:00 63 [in_us] Universi ty [facility] Weight 2018-02-25 14:12:00 226.375 [lb_av] [facility] Body Mass Index Calculated 2018-02-25 14:12:00 40.1 kg/m2 [facility] Temperature 2018-02-25 14:12:00 97.9 [degF] Method: [facility]poral [facility] Heart Rate 2018-02-25 14:12:00 69 /min Universi ty [facility] Respiration Rate 2018-02-25 14:12:00 16 /min [facility] BP Systolic 2017-10-23 13:20:00 114 mm[Hg] Location: ARLIN; Positi on: Sitting [facility] BP Diastolic 2017-10-23 13:20:00 68 mm[Hg] Location: ARLIN; Positi on: Sitting [facility] Height 2017-10-23 13:20:00 63 [in_us] Universi ty [facility] Weight 2017-10-23 13:20:00 240.25 [lb_av] Univer [facility] Body Mass Index Calculated 2017-10-23 13:20:00 42.56 kg/m2 [facility] Temperature 2017-10-23 13:20:00 97.5 [degF] Method: Temporal [facility] Heart Rate 2017-10-23 13:20:00 77 [facility] Respiration Rate 2017-10-23 13:20:00 16 /min [facility] O2 SAT 2017-10-23 13:20:00 97 % Universi ty [facility] BP Systolic 2017-08-08 11:10:00 122 mm[Hg] Location: LUE; Positi on: Sitting [facility] BP Diastolic 2017-08-08 11:10:00 73 mm[Hg] Location: LUE; Positi on: Sitting [facility] Height 2017-08-08 11:10:00 63 [in_us] [facility] Weight 2017-08-08 11:10:00 242.5 [lb_av] [facility] Body Mass Index Calculated 2017-08-08 11:10:00 42.96 kg/m2 [facility] Temperature 2017-08-08 11:10:00 98.1 [degF] Method: Temporal [facility] Heart Rate 2017-08-08 11:10:00 69 /min [facility] Respiration Rate 2017-08-08 11:10:00 16 /min [facility] O2 SAT 2017-08-08 11:10:00 97 % [facility] BP Systolic 2017-05-08 13:59:00 128 mm[Hg] Location: LUE; Positi on: Sitting [facility] BP Diastolic 2017-05-08 13:59:00 56 mm[Hg] Location: LUE; Positi on: Sitting [facility] Height 2017-05-08 13:59:00 63 [in_us] [facility] Weight 2017-05-08 13:59:00 240.375 [lb_av] [facility] Body Mass Index Calculated 2017-05-08 13:59:00 42.58 kg/m2 [facility] Heart Rate 2017-05-08 13:59:00 70 /min Location: L Radial; Q uality: Normal [facility] Procedures Procedure Date / Time Performed Performing Clinician Sour e [QL] CULTURE, URINE, ROUTINE 2019-12-04 00:00:00 [facility] [N] 2D Echo complete, with Doppler [id number] 2019-10-30 00:00:00 [facility] CVRAD - Lower Venous Comp - [id number] 2019-06-12 00:00:00 [facility] [[facility]] CBC (INCLUDES DIFF/PLT) 2019-02-17 00:00:00 [facility] [[facility]] CMP W/EGFR 2019-02-17 00:00:00 University [facility] [QH] LIPID PANEL WITH REFLEX TO DIRECT LDL 2019-02-17 00:00:00 University [facility] [QL] TSH, 3RD GENERATION W/REFLEX TO FT4 2019-02-17 00:00:00 [facility] [QL] HEMOGLOBIN A1c 2019-02-17 00:00:00 [facility] [QL] VITAMIN D, 25-HYDROXY, LC/MS/MS 2019-02-17 00:00:00 University [facility] MRI Internal Auditory Canal w/wo contrast [id number] 2018-11-27 00:00 :00 [facility] [O] Basic Audiometry Screen 2018-11-13 00:00:00 [facility] [QL] CBC (INCLUDES DIFF/PLT) 2018-06-02 00:00:00 [facility] [QL] CMP W/EGFR 2018-06-02 00:00:00 [facility] [Q] LIPID PANEL WITH REFLEX TO DIRECT LDL 2018-06-02 00:00:00 [facility] [QL] TSH, 3RD GENERATION W/REFLEX TO FT4 2018-06-02 00:00:00 [facility] [QL] HEMOGLOBIN A1c 2018-06-02 00:00:00 [facility] [QL] VITAMIN D, 25-HYDROXY, LC/MS/MS 2018-06-02 00:00:00 [facility] [N] 2D Echo complete, with Doppler [id number] 2018-04-30 00:00:00 [facility] XRAY Knee 3 views [id number] 2018-04-29 00:00:00 [facility] [QL] CBC (INCLUDES DIFF/PLT) 2018-02-25 00:00:00 [facility] [QLH] CMP W/EGFR 2018-02-25 00:00:00 [facility] [QH] LIPID PANEL WITH REFLEX TO DIRECT LDL 2018-02-25 00:00:00 [facility] [QL] TSH, 3RD GENERATION W/REFLEX TO FT4 2018-02-25 00:00:00 [facility] [QL] HEMOGLOBIN A1c 2018-02-25 00:00:00 [facility] [QL] VITAMIN D, 25-HYDROXY, LC/MS/MS 2018-02-25 00:00:00 [facility] [QLH] CULTURE, URINE, ROUTINE 2018-02-25 00:00:00 [facility] MA Digital Mammo Screening Joao [id number] 2018-02-25 00:00:00 [facility] MA Bone Density DXA [employer] [id number] 2018-02-25 00:00:00 [facility] [QLH] CBC (INCLUDES DIFF/PLT) 2017-04-24 00:00:00 [facility] History of Sinus Surgery [facility] History of Total Abdominal Hysterectomy With Removal Of Both Ova katherin [facility] Plan of Care Planned Activity Planned Date Details Comments Source Future Scheduled Test 2020-04-29 00:00:00 [N] 2D Echo comple te, with Doppler 45507 [code = [N] 2D Echo complete, with Doppler 21191] [facility] Future Scheduled Test 2020-03-28 00:00:00 [N] 2D Echo comple te, with Doppler 04677 [code = [N] 2D Echo complete, with Doppler 32045] [facility] Diagnostic Test Pending 2019-04-30 00:00:00 [N] 2D Echo comp lete, with Doppler 28411 [code = [N] 2D Echo complete, with Doppler 94667] [facility] Diagnostic Test Pending 2018-11-13 00:00:00 [O] Basic Audiom etry Screen [code = [O] Basic Audiometry Screen] [facility] Diagnostic Test Pending 2018-07-08 00:00:00 [QLH] CBC (INCLU SPIKE DIFF/PLT) [code = [QLH] CBC (INCLUDES DIFF/PLT)] [facility] Diagnostic Test Pending 2018-07-08 00:00:00 [QLH] CMP W/EGFR [code = [QLH] CMP W/EGFR] [facility] Diagnostic Test Pending 2018-07-08 00:00:00 [QH] LIPID PANEL WITH REFLEX TO DIRECT LDL [code = [QH] LIPID PANEL WITH REFLEX TO DIRECT LDL] [facility] Diagnostic Test Pending 2018-07-08 00:00:00 [QLH] TSH, 3RD G ENERATION W/REFLEX TO FT4 [code = [QLH] TSH, 3RD GENERATION W/REFLEX TO FT4] [facility] Diagnostic Test Pending 2018-07-08 00:00:00 [QLH] HEMOGLOBIN A1c [code = [QLH] HEMOGLOBIN A1c] [facility] Diagnostic Test Pending 2018-07-08 00:00:00 [QLH] VITAMIN D, 25-HYDROXY, LC/MS/MS [code = [QLH] VITAMIN D, 25-HYDROXY, LC/MS/MS] [facility] Future Scheduled Test 2013-05-13 22:47:29 Plan of Care [code = 1877 6-5] [facility] Future Appointment 2020-04-29 11:00:00 Christine LEMUS [facility] Future Appointment 2020-04-29 10:00:00 MORGAN ADEN [facility] Encounters Start Date/Time End Date/Time Encounter Type Admission Type Attendi [facility] Care Department Encounter ID Source 2019-12-04 14:00:00 2019-12-04 14:00:00 Appointment; MEMO WILSON P.A. CRUZ, LETICIA, P.A. [facility], [address] [id number] [facility] 2019-10-30 10:40:00 2019-10-30 10:40:00 Appointment; MARIAH FRANCIS M.D. CHARITAKIS, KONSTANTINOS, M.D. [facility], [address] [id number] [facility] 2019-09-07 13:30:00 2019-09-07 13:30:00 Appointment; MEMO WILSON P.A. CRUZ, LETICIA, P.A. [facility], [address] [id number] [facility] 2019-09-01 09:00:00 2019-09-01 09:00:00 Appointment; GREGG THORNTON M.D. MARTIN, GORDON, M.D. [facility] Thoracic Surgery - [facility] [id number] [facility] 2019-08-03 13:30:00 2019-08-03 13:30:00 Appointment; MEMO WILSON P.A. CRUZ, LETICIA PPadmaja [facility] [id number] [facility] 2019-06-19 11:15:00 2019-06-19 11:15:00 Appointment; GREGG THORNTON M.D. MARTIN, GORDON, M.D. [facility] Thoracic Surgery [facility] [id number] [facility] 2019-06-12 08:00:00 2019-06-12 08:00:00 Appointment; VASCULAR, SE VASCULAR, SE [facility] Thoracic [facility] [id number] [facility] 2019-05-22 11:30:00 2019-05-22 11:30:00 Appointment; GREGG THORNTON M.D. MARTIN, GORDON, M.D. [facility] Thoracic Surgery [facility] [id number] [facility] 2019-04-28 12:00:00 2019-04-28 12:00:00 Appointment; MARIAH FRANCIS M.D. CHARITAKIS, KONSTANTINOS, M.D. [place] [address] [id number] [facility] 2019-04-28 11:00:00 2019-04-28 11:00:00 Appointment; [place]-MS, E CHO [facility], ECHO [facility] [id number] [facility] 2019-02-17 13:00:00 2019-02-17 13:00:00 Appointment; MEMO WILSON P.A. CRUZ, LETICIA, P.A. [facility] [id number] [facility] 2019-01-01 10:15:00 2019-01-01 10:15:00 Appointment; DALTON PHIPPS M.D. BYRD, MICHAEL, M.D. [facility] [id number] [facility] 2018-11-27 13:30:00 2018-11-27 13:30:00 Appointment; DALTON PHIPPS M.D. BYRD, MICHAEL, M.D. [facility] [id number] [facility] 2018-11-20 15:30:00 2018-11-20 15:30:00 Appointment; ANDREA FLORES KIMBERLY [facility] Otorhinolaryngology [facility] [id number] [facility] 2018-11-13 13:45:00 2018-11-13 13:45:00 Appointment; DALTON PHIPPS M.D. BYRD, MICHAEL, M.D. [facility] [address] [id number] [facility] 2018-11-03 10:30:00 2018-11-03 10:30:00 Appointment; CLINT GEE APRN HOANG, CHRISTINA, APRN [facility] [id number] [facility] 2018-08-12 15:00:00 2018-08-12 15:00:00 Appointment; MEMO WILSON P.A. CRUZ, LETICIA PAshkanAAshkan [facility] [id number] [facility] 2018-07-16 13:15:00 2018-07-16 13:15:00 Appointment; SCOTTY GUTIERREZ M.D. HUANG, EDDIE, M.D. [facility] [id number] [facility] 2018-06-11 13:15:00 2018-06-11 13:15:00 Appointment; SCOTTY GUTIERREZ M.D. HUANG, EDDIE, M.D. [facility] Orthopedics at [facility] [id number] [facility] 2018-06-02 08:00:00 2018-06-02 08:00:00 Appointment; MEMO WILSON P.A. CRUZ, LETICIA PAshkanAAshkan [facility] [address] [id number] [facility] 2018-04-30 13:40:00 2018-04-30 13:40:00 Appointment; MARIAH FRANCIS M.D. CHARITAKIS, KONSTANTINOS, M.D. [facility] ulti-Specialty [address] [id number] [facility] 2018-04-29 10:45:00 2018-04-29 10:45:00 Appointment; MEMO WILSON P.A. CRUZ, LETICIA P.AAshkan [facility] [id number] [facility] 2018-02-25 14:00:00 2018-02-25 14:00:00 Appointment; MEMO WILSON P.A. CRUZ, LETICIA PAshkanAAshkan [facility] [address] [id number] [facility] 2017-10-23 13:15:00 2017-10-23 13:15:00 Appointment; MEMO WILSON P.A. CRUZ, LETICIA PAshkanAAshkan [facility] [address] [id number] [facility] 2017-08-08 11:00:00 2017-08-08 11:00:00 Appointment; MEMO WILSON P.A. CRUZ, LETICIA P.AAshkan [facility] [id number] [facility] 2017-05-08 13:40:00 2017-05-08 13:40:00 Appointment; MARIAH FRANCIS M.D. CHARITAKIS, KONSTANTINOS, M.D. U[place] UTP [id number] [facility] 2017-05-07 10:00:00 2017-05-07 10:00:00 Appointment; MARIAH FRANCIS M.D. CHARITAKIS, KONSTANTINOS, M.D. [facility] UTP [id number] [facility] 2017-04-24 13:45:00 2017-04-24 13:45:00 Appointment; MEMO WILSON P.A. CRUZ, LETICIA, P.AAshkan [place] UTP [id number] [facility] 2017-04-17 14:30:00 2017-04-17 14:30:00 Appointment; MEMO WILSON P.A. CRUZ, LETICIA, P.A. [facility] UTP [id number] [facility] 2017-03-07 10:15:00 2017-03-07 10:15:00 Appointment; MEMO WILSON P.A. CRUZ, LETICIA, P.A. UTP UTP [id number] [facility] 2017-02-12 15:45:00 2017-02-12 15:45:00 Appointment; MEMO WILSON P.A. CRUZ, LETICIA, P.A. UTP UTP [id number] [facility] 2016-12-24 10:00:00 2016-12-24 10:00:00 Appointment; MEMO WILSON P.A. CRUZ, LETICIA, P.A. UTP UTP [id number] [facility] 2016-12-12 11:00:00 2016-12-12 11:00:00 Appointment; MEMO WILSON P.A. CRUZ, LETICIA, P.A. UTP UTP [id number] [facility] 2016-11-02 13:40:00 2016-11-02 13:40:00 Appointment; MARIAH FRANCIS M.D. CHARITAKIS, KONSTANTINOS, M.D. [place] U[place] [id number] [facility] 2016-10-17 15:40:00 2016-10-17 15:40:00 Appointment; MARIAH FRANCIS M.D. CHARITAKIS, KONSTANTINOS, M.D. UTP UTP [id number] [facility] 2016-10-17 13:00:00 2016-10-17 13:00:00 Appointment; [place]-MS, N UCLEAR [place]-MS, NUCLEAR UTP UTP [id number] [facility] 2016-10-15 14:00:00 2016-10-15 14:00:00 Appointment; MEMO WILSON P.A. CRUZ, LETICIA, P.A. UTP UTP [id number] [facility] 2016-10-09 10:00:00 2016-10-09 10:00:00 Appointment; MARIAH FRANCIS M.D. CHARITAKIS, KONSTANTINOS, M.D. [place] [id number] [facility] 2016-10-05 10:00:00 2016-10-05 10:00:00 Appointment; [place]-MS, E CHO [place], ECHO UTP UTP [id number] [facility] 2016-08-06 14:45:00 2016-08-06 14:45:00 Appointment; MEMO WILSON P.A. CRUZ, LETICIA, P.AAshkan UTP UTP [id number] [facility] 2016-05-09 13:00:00 2016-05-09 13:00:00 Appointment; MEMO WILSON P.A. CRUZ, LETICIA PAshkanAAshkan UTP UTP [id number] [facility] 2016-05-02 11:00:00 2016-05-02 11:00:00 Appointment; MEMO WILSON P.A. CRUZ, LETICIA, P.A. UTP UTP [id number] [facility] 2016-04-04 08:30:00 2016-04-04 08:30:00 Appointment; MEMO WILSON P.A. CRUZ, LETICIA, P.A. UTP UTP [id number] [facility] 2016-03-26 13:45:00 2016-03-26 13:45:00 Appointment; LIUDMILA FAGAN P.A. CAMPOS, BERTHA P.A. UTP UTP [id number] [facility] 2016-01-31 09:30:00 2016-01-31 09:30:00 Appointment; MEMO WILSON P.A. CRUZ, LETICIA, P.A. UTP UTP [id number] [facility] 2015-12-15 10:30:00 2015-12-15 10:30:00 Appointment; MEMO WILSON P.A. CRUZ, LETICIA, P.A. UTP UTP [id number] [facility] 2015-12-01 10:30:00 2015-12-01 10:30:00 Appointment; MEMO WILSON P.A. CRUZ, LETICIA, P.A. UTP UTP [id number] [facility] 2015-10-26 13:15:00 2015-10-26 13:15:00 Appointment; MEMO WILSON P.A. CRUZ, LETICIA, P.A. UTP UTP [id number] [facility] 2015-10-12 17:00:00 2015-10-12 17:00:00 Appointment; MARIAH FRANCIS M.D. CHARITAKIS, KONSTANTINOS, M.D. UTP UTP [id number] [facility] 2015-09-22 14:15:00 2015-09-22 14:15:00 Appointment; MEMO WILSON P.A. CRUZ, LETICIA, P.A. UTP UTP [id number] [facility] 2015-09-21 13:45:00 2015-09-21 13:45:00 Appointment; SCOTTY GUTIERREZ M.D. HUANG, EDDIE, M.D. UTP UTP [id number] [facility] 2015-09-15 14:00:00 2015-09-15 14:00:00 Appointment; MEMO WILSON P.A. CRUZ, LETICIA, P.AAshkan [place] UTP [id number] [facility] 2015-09-08 08:00:00 2015-09-08 08:00:00 Appointment; [place]-MS, E YULIANA [place]-[facility], ECHO UTP UTP [id number] [facility] 2015-09-05 13:15:00 2015-09-05 13:15:00 Appointment; MEMO WILSON P.A. CRUZ, LETICIA, P.A. UTP UTP [id number] [facility] 2015-08-31 09:15:00 2015-08-31 09:15:00 Appointment; MEMO WILSON P.A. CRUZ, LETICIA PAshkanAAshkan [place] UTP [id number] [facility] 2015-08-11 15:15:00 2015-08-11 15:15:00 Appointment; MEMO WILSON P.A. CRUZ, LETICIA PAshkanAAshkan UTP UTP [id number] [facility] 2013-08-26 10:36:39 2013-08-26 10:36:39 Outpatient MHIE MHIE [id number] 2013-05-13 16:47:30 2013-05-13 16:47:29 Outpatient MHIE MHIE [id number] 2013-02-24 06:46:55 2013-02-24 06:46:35 Outpatient MHIE MHIE [id number] Results Test Description Test Time Test Comments Results Result Comments Source HUMERUS 2 [facility] 2020-02-20 23:33:00 [place] [address] Patient Name: SOTO GARRETT MR #: [id number] : 1950 Age/Sex: 70/F Req #: [id number] Adm Physician: Ordered by: UZIEL MURRY MD Report #: [id number] Location: [facility] Room/Bed: Procedure: HOPD/HUMERUS 2 VIEW LT - HOPD Exam Date: 02/20/20 Exam Time: 231 REPORT STATUS: Signed HUMERUS 2 VIEW LT - HOPD - 4 views HISTORY: Pain COMPARISON: None available. IMPRESSION: No definite evidence of acute displaced fracture of the left humerus. Signed by: Dr. Matthias Petty MD on 02/20/2020 11:34 PM Dictated By: MATTHIAS PETTY MD 33 Transcribed By: KEVIN on 02/20/202333 COPY TO: UZIEL MURRY MD ELBOW 3 VIEW LT - HOPD 2020-02-20 23:31:00 [place] [address] Patient Name: SOTO GARRETT MR #: [id number] : 1950 Age/Sex: 70/F Req #: [id number] Adm Physician: Ordered by: UZIEL MURRY MD Report #: [id number] Location: [facility] Room/Bed: Procedure: HOPD/ELBOW 3 VIEW LT - HOPD Exam Date: 02/20/20 Exam Time: 231 REPORT STATUS: Signed ELBOW 3 VIEW LT - HOPD - 3 views HISTORY: Pain COMPARISON: None available. IMPRESSION: Displaced fracture of left radial head as well as posterior dislocation of radius and ulna with respect to the humerus. Suspected tiny avulsion fracture of olecranon. Soft tissue swelling and small elbow joint effusion. Signed by: Dr. Matthias Petty MD on 02/20/2020 11:33 PM Dictated By: MATTHIAS PETTY MD 32 Transcribed By: KEVIN on 02/20/202332 COPY TO: UZIEL MURRY MD FOREARM 2 VIEW LT -HOPD 2020-02-20 23:27:00 [place] [address] Patient Name: SOTO GARRETT MR #: [id number] : 1950 Age/Sex: 70/F Req #: [id number] Adm Physician: Ordered by: UZIEL MURRY MD Report #: [id number] Location: [facility] Room/Bed: Procedure: [id number] HOPD/FOREARM 2 VIEW LT -HOPD Exam Date: 02/20/20 Exam Time: 2309 REPORT STATUS: Signed FOREARM 2 VIEW LT -HOPD - 2 views HISTORY: Pain COMPARISON: None available. IMPRESSION: Displaced fracture of left radial head as well as posterior dislocation of elbow joint. Suspected tiny avulsion fracture of olecranon. Soft tissue swe lling and small elbow joint effusion. Signed by: Dr. Matthias Petty MD on 02/20/2020 11:31 PM Dictated By: MATTHIAS PETTY MD 30 Transcribed By: KEVIN on 02/20/20 4821 COPY TO: UZIEL MURRY MD [O] Urine Dipstick (In Office) 2019-12-04 14:15:00 Test Item Glucose (test code = Glucose) normal N LEUKOCYTES (test code = LEUKOCYTES) neg N NITRITE; Normal (test code = 40553-3) neg N UROBILINOGEN; Normal (test code = 78062-4) neg N PROTEIN (test code = 44428-3) trace pH (test code = pH) 5 URINE BLOOD; Normal (test code = 90714-6) neg N SPECIFIC GRAVITY (test code = 2965-2) 1.015 KETONES; Normal (test code = 56252-5) neg N BILIRUBIN; Normal (test code = 41745-1) neg N COLOR URINE; Normal (test code = 5778-6) yellow N APPEARANCE; Normal (test code = 5767-9) clear N [facility][O] Streptococcus Test Rapid (In Office)2019-08-03 14:14:00* Test Item Value Reference Range Interpretation Comments Group A Strep Screen; Normal (test code = 97563-9) neg N [facility]icians[facility] MAMM BILATERAL IRMA CAD [id number] 11:11:45 - SCR MAMM BILATERAL IRMA CAD DIGITALBILATERAL DIGITAL SCREENING MAMMOGRAM 3D/2D WITH CAD: 03/16/2019CLINICAL: Asymptomatic. Digital breast tomosynthesis was performed in addition to routine CC and MLO views. Current mammographic images were evaluated by either a SCHEDit M-Vu or a [employer]i-Logic ImageChecker CAD (computer aided detection system). Comparison is made to exams dated 03/06/2018 mammogram, 02/25/2017 mammogram, 02/24/2016 mammogram, 02/10/2015 mammogram, and 02/08/2014 mammogram - [facility]-. There are scattered fibroglandular tissues in both breasts. No suspicious mass, architectural distortion, malignant type calcification, or lymph node abnormality detected. Breast architecture is stable compared to prior exams.IMPRESSION: NEGATIVEThere is no mammographic evidence of malignancy. Resume annual screening mammography in one year. Osiris leyva/leidy:03/16/2019 11:11:45 copy to: Neptali Mccurdy MD, ph: [phone], fax: [phone] Technologist: Criss Hurst FW, [facility]- FWletter sent: BIRADS 1-2 Normal Mammogram BI-RADS: 1 Negative[Q] LIPID PANEL WITH REFLEX TO DIRECT [id number] 09:47:00* Test Item Value Reference Range Interpretation Comments CHOLESTEROL, TOTAL; Normal (test code = 2093-3) 132 mg/dl <200 N HDL CHOLESTEROL; Below Low Threshold (test code = 2085-9) 48 mg/dl >50 TRIGLYCERIDES; Above High Threshold (test code = 2571-8) 163 mg/dl <150 LDL-CHOLESTEROL; Normal (test code = 52191-9) 60 {MG/DL PERRI} N Reference range: <100 Desirable range <100 mg/dL for primary prevention; <70 mg/dL for patients with CHD or diabetic patients with > or = 2 CHD risk factors. LDL-C is now calculated using the Bettye calculation, which is a validated novel method providing better accuracy than the Friedewald equation in the estimation of LDL-C. Amador SS et al. CHAPITO. 2013;310(19): 9202-7269 (http ://education.Waitsup.Pixspan/faq/BWH913) CHOL/HDLC RATIO (test code = CHOL/HDLC RATIO) 2.8 {CALC} <5.0 N NON HDL CHOLESTEROL (test code = NON HDL CHOLESTEROL) 84 {MG/DL CA L} <130 N For patients with diabetes plus 1 major ASCVD risk factor, treating to a non-HDL-C goal of <100 mg/dL (LDL-C of <70 mg/dL) is considered a therapeutic option. [facility]] CMP [id number] 09:47:00* Test Item Value Reference Range Interpretation Comments GLUCOSE; Normal (test code = 1547-9) 88 mg/dl 65-99 N Fasting reference interval UREA NITROGEN (BUN) (test code = UREA NITROGEN (BUN)) 17 mg/dl 7-25 N CREATININE (test code = CREATININE) 0.69 mg/dl 0.60-0.93 N For patients >49 years of age, the reference limitfor Creatinine is approximately 13% higher for peopleidentified as -Tristanian. eGFR NON- (test code = eGFR NON-ANISHA N SWAZI) 88 {ML/MIN/1.7} > OR = 60 N [...] N BILIRUBIN, TOTAL; Normal (test code = 22771-7) 0.2 mg/dl 0.2-1.2 N ALKALINE PHSPHATASE (test code = ALKALINE PHSPHATASE) 71 u/l 33-130 N AST; Normal (test code = 1916-6) 15 u/l 10-35 N ALT; Normal (test code = 1742-6) 7 u/l 6-29 N [facility]] CBC (INCLUDES DIFF/PLT)2019-02-18 09:47:00* Test Item Value Reference Range Interpretation Comments WHITE BLOOD CELL COUNT (test code = WHITE BLOOD CELL COUNT) 8.9 {Thousand/u} 3.8-10.8 N RED BLOOD CELL COUNT (test code = RED BLOOD CELL COUNT) 4.06 {Million/uL} 3.80-5.10 N HEMAGLOBIN; Below Low Threshold (test code = 28327-4) 11.6 g/dl 11.7-15.5 HEMATOCRIT; Normal (test code = 4544-3) 36.7 % 35.0-45.0 N MCV; Normal (test code = 787-2) 90.4 fL 80.0-100.0 N MCHC; Below Low Threshold (test code = 32363-4) 31.6 g/dl 32.0-3 6.0 N RDW; Normal (test code = 788-0) 14.4 % 11.0-15.0 N PLATELET COUNT; Normal (test code = 777-3) 262 {Thousand/u} 140-400 N MPV; Normal (test code = 30458-6) 9.6 fL 7.5-12.5 N ABSOLUTE NEUTROPHILS (test code = ABSOLUTE NEUTROPHILS) 6052 {cells/uL} 2415-2789 N ABSOLUTE LYMPHOCYTES (test code = ABSOLUTE [...] % N MONOCYTES; Normal (test code = 03518-2) 7.8 % N EOSINOPHILS; Normal (test code = 69903-5) 2.9 % N BASOPHILS; Normal (test code = 68235-7) 0.4 % N [facility]] TSH, 3RD GENERATION W/REFLEX TO FT4 2019-02-18 09:47:00* Test Item Value Reference Range Interpretation Comments TSH, 3RD GENERATION W/REFLEX TO FT4 (rebeka t code = TSH, 3RD GENERATION W/REFLEX TO FT4) 3.92 {MIU/L} 0.40-4.50 N [facility]] VITAMIN D, 25-HYDROXY, LC/MS/[id number] 09:47:00* Test Item Value Reference Range Interpretation [...] D, (D2,D3), LC/MS/MS is recommended: order code 93859 (patients >2yrs). For more information on this test, go to:http://education.VidSchool/faq/RRN541(This link is being provided for informational/educational purposes only.) [facility]] HEMOGLOBIN [id number] 09:47:00* Test Item Value Reference Range Interpretation Comments HEMOGLOBIN A1c; Above High Threshold (test code = 4548-4) 5.7 {% of total} <5.7 For someone without known diabetes, a he moglobin A1c value between 5.7% and 6.4% is consistent withprediabetes and should be confirmed with a follow-up test. For someone with known diabetes, a value <7%indicates that their diabetes is well controlled. T0nuusblke should be individualized based on duration ofdiabetes, age, comorbid conditions, and otherconsiderations. This assay result is consistent with an increased riskof diabetes. Currently, no consensus exists regarding use ofhemoglobin A1c for diagnosis of diabetes for children. [facility]] Urine Dipstick (In Office)2018-08-12 15:25:00 * Test Item Value Reference Range Interpretation Comments Glucose (test code = Glucose) neg N LEUKOCYTES (test code = LEUKOCYTES) + NITRITE; Normal (test code = 55941-2) neg N UROBILINOGEN; Normal (test code = 51307-6) neg N PROTEIN (test code = 83356-6) trace pH (test code = pH) 5 URINE BLOOD (test code = 43764-5) trace SPECIFIC GRAVITY (test code = 2965-2) 1.015 KETONES; Normal (test code = 50425-5) neg N BILIRUBIN; Normal (test code = 37432-2) neg N COLOR URINE; Normal (test code = 5778-6) yellow N APPEARANCE; Normal (test code = 5767-9) clear N [facility][] LIPID PANEL WITH REFLEX TO DIRECT LDL 2018-07-10 10:20:00* Test Item Value Reference Range Interpretation Comments CHOLESTEROL, TOTAL; Normal (test code = 2093-3) 152 mg/dl <200 N HDL CHOLESTEROL; Normal (test code = 2085-9) 57 mg/dl >50 N TRIGLYCERIDES; Normal (test code = 2571-8) 146 mg/dl <150 N LDL-CHOLESTEROL; Normal (test code = 97851-2) 72 {MG/DL PERRI} N Reference range: <100 Desirable range <100 mg/dL for primary prevention; <70 mg/dL for patients with CHD or diabetic patients with > or = 2 CHD risk factors. LDL-C is now calculated using the Bettye calculation, which is a validated novel method providing better accuracy than the Friedewald equation in the estimation of LDL-C. Amador SS et al. CHAPITO. 2013;310(19): 7389-9038 (http ://education.Vestor/faq/JKQ227) CHOL/HDLC RATIO (test code = CHOL/HDLC RATIO) 2.7 {CALC} <5.0 N NON HDL CHOLESTEROL (test code = NON HDL CHOLESTEROL) 95 {MG/DL CA L} <130 N For patients with diabetes plus 1 major ASCVD risk factor, treating to a non-HDL-C goal of <100 mg/dL (LDL-C of <70 mg/dL) is considered a therapeutic option. [facility]] CMP [id number] 10:20:00* Test Item Value Reference Range Interpretation Comments GLUCOSE; Normal (test code = 1547-9) 95 mg/dl 65-99 N Fasting reference interval UREA NITROGEN (BUN) (test code = UREA NITROGEN (BUN)) 18 mg/dl 7-25 N CREATININE (test code = CREATININE) 0.65 mg/dl 0.50-0.99 N For patients >49 years of age, the reference limitfor Creatinine is approximately 13% higher for peopleidentified as -Tristanian. eGFR NON- (test code = eGFR NON-ANISHA N SWAZI) 91 {ML/MIN/1.7} > OR = 60 N [...] N BILIRUBIN, TOTAL; Normal (test code = 81139-6) 0.3 mg/dl 0.2-1.2 N ALKALINE PHSPHATASE (test code = ALKALINE PHSPHATASE) 71 u/l 33-130 N AST; Normal (test code = 1916-6) 13 u/l 10-35 N ALT; Normal (test code = 1742-6) 7 u/l 6-29 N [facility]] CBC (INCLUDES DIFF/PLT)2018-07-10 10:20:00* Test Item Value Reference Range Interpretation Comments WHITE BLOOD CELL COUNT (test code = WHITE BLOOD CELL COUNT) 7.7 {Thousand/u} 3.8-10.8 N RED BLOOD CELL COUNT (test code = RED BLOOD CELL COUNT) 3.98 {Million/uL} 3.80-5.10 N HEMAGLOBIN; Below Low Threshold (test code = 84074-7) 11.6 g/dl 11.7-15.5 HEMATOCRIT; Normal (test code = 4544-3) 35.3 % 35.0-45.0 N MCV; Normal (test code = 787-2) 88.7 fL 80.0-100.0 N MCHC; Normal (test code = 88278-1) 32.9 g/dl 32.0-36.0 N RDW; Normal (test code = 788-0) 13.5 % 11.0-15.0 N PLATELET COUNT; Normal (test code = 777-3) 292 {Thousand/u} 140-400 N MPV; Normal (test code = 78639-2) 9.9 fL 7.5-12.5 N ABSOLUTE NEUTROPHILS (test code = ABSOLUTE NEUTROPHILS) 5082 {cells/uL} 7749-3325 N ABSOLUTE LYMPHOCYTES (test code = ABSOLUTE [...] % N MONOCYTES; Normal (test code = 71930-0) 7.0 % N EOSINOPHILS; Normal (test code = 71675-6) 3.9 % N BASOPHILS; Normal (test code = 85291-2) 0.4 % N [facility]] TSH, 3RD GENERATION W/REFLEX TO FT4 2018-07-10 10:20:00* Test Item Value Reference Range Interpretation Comments TSH, 3RD GENERATION W/REFLEX TO FT4 (rebeka t code = TSH, 3RD GENERATION W/REFLEX TO FT4) 2.92 {MIU/L} 0.40-4.50 N [facility]] VITAMIN D, 25-HYDROXY, LC/MS/[id number] 10:20:00* Test Item Value Reference Range Interpretation [...] D, (D2,D3), LC/MS/MS is recommended: order code 04252 (patients >2yrs). For more information on this test, go to:http://education.Intoo.Pixspan/faq/MAF882(This link is being provided for informational/educational purposes only.) [facility]] HEMOGLOBIN [id number] 10:20:00* Test Item Value Reference Range Interpretation [...] diagnosis of diabetes in children. According to [place] Diabetes Association (ADA)guidelines, hemoglobin A1c <7.0% represents optimalcontrol in non- diabetic patients. Differentmetrics may apply to specific patient populations. Standards of Medical Care in Diabetes(ADA). [facility] [id number] 11:47:00EXAM: XR RIGHT KNEE 3 VIEWSDATE: 04/29/2018 [...] osseous abnormality.--This report was dictated by a Sports Centre Manager/Fellow. I have personallyreviewed the images aswell as the Resident's interpretation and agree with the findings.Read by: Wanda Barrett MD Resident: Wanda BarrettMDDictated Date/time: 04/29/18 13:31E lectronically Signed by: Chetan Sidhu MD 04/29/1818:3 2[facility][] LIPID PANEL WITH REFLEX TO DIRECT [id number] 08:59:00* Test Item Value Reference Range Interpretation Comments CHOLESTEROL, TOTAL; Normal (test code = 2093-3) 164 mg/dl <200 N HDL CHOLESTEROL; Normal (test code = 2085-9) 51 mg/dl >50 N TRIGLYCERIDES; Above High Threshold (test code = 2571-8) 169 mg/dl <150 LDL-CHOLESTEROL; Normal (test code = 23995-7) 86 {MG/DL PERRI} N Reference range: <100 Desirable range <100 mg/dL for primary prevention; <70 mg/dL for patients with CHD or diabetic patients with > or = 2 CHD risk factors. LDL-C is now calculated using the Bettye calculation, which is a validated novel method providing better accuracy than the Friedewald equation in the estimation of LDL-C. Amador SS et al. CHAPITO. 2013;310(89): 0515-2490 (http ://TeliApp.Vestor/faq/QVO759) CHOL/HDLC RATIO (test code = CHOL/HDLC RATIO) 3.2 {CALC} <5.0 N NON HDL CHOLESTEROL (test code = NON HDL CHOLESTEROL) 113 {MG/DL C AL} <130 N For patients with diabetes plus 1 major ASCVD risk factor, treating to a non-HDL-C goal of <100 mg/dL (LDL-C of <70 mg/dL) is considered a therapeutic option. [facility]] CMP [id number] 08:59:00* Test Item Value Reference Range Interpretation Comments GLUCOSE; Normal (test code = 1547-9) 87 mg/dl 65-99 N Fasting reference interval UREA NITROGEN (BUN) (test code = UREA NITROGEN (BUN)) 14 mg/dl 7-25 N CREATININE (test code = CREATININE) 0.67 mg/dl 0.50-0.99 N For patients >49 years of age, the reference limitfor Creatinine is approximately 13% higher for peopleidentified as -Tristanian. eGFR NON- (test code = eGFR NON-ANISHA N SWAZI) 90 {ML/MIN/1.7} > OR = 60 N [...] N BILIRUBIN, TOTAL; Normal (test code = 97457-0) 0.3 mg/dl 0.2-1.2 N ALKALINE PHSPHATASE (test code = ALKALINE PHSPHATASE) 77 u/l 33-130 N AST; Normal (test code = 1916-6) 16 u/l 10-35 N ALT; Normal (test code = 1742-6) 9 u/l 6-29 N [facility]] CBC (INCLUDES DIFF/PLT)2018-02-27 08:59:00* Test Item Value Reference Range Interpretation Comments WHITE BLOOD CELL COUNT (test code = WHITE BLOOD CELL COUNT) 8.8 {Thousand/u} 3.8-10.8 N RED BLOOD CELL COUNT (test code = RED BLOOD CELL COUNT) 4.23 {Million/uL} 3.80-5.10 N HEMAGLOBIN; Normal (test code = 47811-3) 12.2 g/dl 11.7-15.5 N HEMATOCRIT; Normal (test code = 4544-3) 37.0 % 35.0-45.0 N MCV; Normal (test code = 787-2) 87.5 fL 80.0-100.0 N MCHC; Normal (test code = 20006-2) 33.0 g/dl 32.0-36.0 N RDW; Normal (test code = 788-0) 13.7 % 11.0-15.0 N PLATELET COUNT; Normal (test code = 777-3) 281 {Thousand/u} 140-400 N MPV; Normal (test code = 05958-8) 9.8 fL 7.5-12.5 N ABSOLUTE NEUTROPHILS (test code = ABSOLUTE NEUTROPHILS) 5509 {cells/uL} 9300-9785 N ABSOLUTE LYMPHOCYTES (test code = ABSOLUTE [...] % N MONOCYTES; Normal (test code = 39948-6) 6.9 % N EOSINOPHILS; Normal (test code = 06869-5) 3.3 % N BASOPHILS; Normal (test code = 78624-7) 0.5 % N [facility]] TSH, 3RD GENERATION W/REFLEX TO FT4 2018-02-27 08:59:00* Test Item Value Reference Range Interpretation Comments TSH, 3RD GENERATION W/REFLEX TO FT4 (rebeka t code = TSH, 3RD GENERATION W/REFLEX TO FT4) 3.32 {MIU/L} 0.40-4.50 N [facility] VITAMIN D, 25-HYDROXY, LC/MS/[id number] 08:59:00* Test Item Value Reference Range Interpretation Comments VITAMIN D,25-OH,TOTAL,IA (test code = VITAMIN D,25-OH,TOTAL,IA) 24 ng/ml 30-100 Vitamin D Status 25-OH Vitamin D : Deficiency: <20 ng/mLInsufficiency: 20 - 29 ng/mLOptimal: > or = 30 ng/mL For 25-OH Vitamin D testing on patients on D2-supplementation and patients for whom quantitation of D2 and D3 fractions is required, the QuestAssureD()25-OH VIT D, (D2,D3), LC/MS/MS is recommended: order code 55074 (patients >2yrs). For more information on this test, go to:http://education.Intoo.Pixspan/faq/RME335(This link is being provided for informational/educational purposes only.) [facility]] HEMOGLOBIN [id number] 08:59:00* Test Item Value Reference Range Interpretation [...] diagnosis of diabetes in children. According to [place] Diabetes Association (ADA)guidelines, hemoglobin A1c <7.0% represents optimalcontrol in non- diabetic patients. Differentmetrics may apply to specific patient populations. Standards of Medical Care in Diabetes(ADA). [facility][O] Urine Dipstick (In Office)2018-02-25 14:14:00 * Test Item Value Reference Range Interpretation Comments Glucose (test code = Glucose) normal N LEUKOCYTES (test code = LEUKOCYTES) + NITRITE; Normal (test code = 81052-7) neg N UROBILINOGEN; Normal (test code = 42571-9) neg N PROTEIN (test code = 51469-8) trace pH (test code = pH) 5 URINE BLOOD (test code = 11824-8) about 50 SPECIFIC GRAVITY (test code = 2965-2) 1.020 KETONES; Normal (test code = 38807-9) neg N BILIRUBIN; Normal (test code = 08980-3) neg N COLOR URINE; Normal (test code = 5778-6) yellow N APPEARANCE; Normal (test code = 5767-9) clear N [facility]] CULTURE, URINE, [id number] 00:00:00* Test Item Value Reference Range Interpretation Comments CULTURE (test code = CULTURE) See Comment A CULTURE, URINE, ROUTINE MICRO NUMBER: [id number] TEST STATUS: FINAL SPECIMEN SOURCE: URINE SPECIMEN QUALITY: ADEQUATE RESULT: 10,000-50,000 CFU/mL of Streptococcus viridans group May represent colonizers from external and internal genitalia. No further testing (including susceptibility) will be performed. COMMENT: Additional organism(s) less than 10,000 CFU/mL isolated. These organisms, commonly found on external and internal genitalia, are considered colonizers. No further testing performed. [facility]
[2020-02-21] MEDS ORDERED: MORPHINE SULFATE INJ 4 MG/ML INJ 1ML IV PRN (02:45)
--- NOTE | 2020-02-21 03:09 | NUR ---
EMS ARRIVED. REPORT GIVEN
--- NOTE | 2020-02-21 03:45 | NUR ---
PT ARRIVED BY EMS TO ROOM 100. PT IS AAOX3, RR EVEN AND NON-LABORED, ON ROOM AIR. PT AMBULATORY TO HOSPITAL BED. ORIENTED PT TO HOSPITAL POLICY, BED CONTROLS, LIGHTS, CALL LIGHT. (L) ARM SLING WITH SOFT IMMOBILIZING CAST. LEFT PT LAYING SEMI FOWLERS IN BED, BED IN LOW LOCKED POSITION, SIDE RAILS UPX2, CALL LIGHT AND PHONE WITHIN REACH.
--- NOTE | 2020-02-21 03:59 | Emergency Department Note ---
History of Present Illnes History of Present Illness Chief Complaint: Extremity Trauma/Pain History of Present Illness This is a 70 year old rt handed retired female presents with left upper extremity pain status post fall from tripping outside onto grass when letting the dog out. Pain in proximal forearm, elbow, and distal upper arm. States it was dark, but suspects she tripped on the water hose. She denies hitting her head she denies any loss consciousness. She denies any other injuries. No numbness or weakness. Worse with ROM of left elbow. Historian: Patient Arrival Mode: Car Laboratory Coordinator Required: No Onset (how long ago): hour(s) Radiation: Reports non-radiation Severity: severe Onset quality: sudden Duration (how long): hour(s) Timing of current episode: constant Progression: unchanged Context: Reports trauma/injury; Denies recent illness Relieving factors: rest Exacerbating factors: movement Associated symptoms: Reports denies other symptoms Past Medical/Family History Physician Review I have reviewed the patient's past medical and family history. Any updates have been documented here. Past Medical History Recent Fever: No Clinical Suspicion of Infectio: No New/Unexplained Change in Ment: No Past Medical History: Hypertension, Hypothyroidism Other Medical History: HIGH CHOLESTEROL Past Surgical History: Hysterectomy Other Surgery: SINUS SURG Social History Smoking Cessation: Never Smoker Alcohol Use: None Physically hurt or threatened: No Other Any Pre-Existing Lines (PICC,: No Review of Systems Review of Systems Constitutional: Reports no symptoms EENTM: Reports no symptoms Cardiovascular: Reports no symptoms Respiratory: Reports no symptoms Gastrointestinal: Denies abdominal pain, Denies diarrhea, Denies nausea, Denies vomiting Genitourinary: Reports no symptoms Musculoskeletal: Reports as per HPI Neurological: Reports no symptoms; Denies numbness, Denies paresthesia, Denies tingling, Denies weakness Psychological: Reports no symptoms Hematological/Lymphatic: Reports no symptoms Physical Exam Related Data Allergies: Coded Allergies: cephalexin (Verified Allergy, Unknown, HEART PALPITATIONS PER PT, 02/20/20) fluconazole (Verified Allergy, Unknown, ACUTE HIVES PER PT, 02/20/20) sulfamethoxazole (Verified Allergy, Unknown, HIVES PER PT, 02/20/20) trimethoprim (Verified Allergy, Unknown, HIVES PER PT, 02/20/20) Triage Vital Signs Vital Signs Date Time Temp Pulse Resp B/P (MAP) Pulse Ox O2 Delivery O2 Flow Rate FiO2 02/20/20 22:23 98.0 74 18 193/83 100 Room Air Physical Exam CONSTITUTIONAL Constitutional: Present well-developed, Present well-nourished HENT HENT: Present normocephalic, Present atraumatic, Present oropharynx clear/ moist, Present nose normal, Present other (no skinner sign, no racoon eyes) HENT L/R: Present left ext ear normal, Present right ext ear normal EYES Eyes: Reports PERRL, Reports conjunctivae normal, Reports lids normal NECK Neck: Present ROM normal, Present other (FROM, non-tender) PULMONARY Pulmonary: Present effort normal, Present breath sounds normal CARDIOVASCULAR Cardiovascular: Present regular rhythm, Present heart sounds normal, Present c apillary refill normal, Present normal rate, Present strong pulses (+2 radial pulse equal bilaterally. Brisk +2 cap refill of all ten fingers.) GASTROINTESTINAL Abdominal: Present soft, Present nontender, Present bowel sounds normal GENITOURINARY SKIN Skin: Absent rash MUSCULOSKELETAL Musculoskeletal: Present other (ROM limited left elbow due to pain. Tender left elbow into prox forearm and distal humerous.) NEUROLOGICAL Neurological: Present alert, Present no gross motor or sensory deficits (LTSI M/U/R), Present other (Left hand: good OK sign, good adduciton stretgth between fingers); Absent sensory deficit PSYCHOLOGICAL Psychological: Present mood/affect normal Results Laboratory Laboratory comments ELBOW 3 VIEW LT - HOPD - 3 views HISTORY: Pain COMPARISON: None available. IMPRESSION: Displaced fracture of left radial head as well as posterior dislocation of radius and ulna with respect to the humerus. Suspected tiny avulsion fracture of olecranon. Soft tissue swelling and small elbow joint effusion. Signed by: Dr. Matthias Petty MD on 02/20/2020 11:33 PM Dictated By: MATTHIAS PETTY MD FOREARM 2 VIEW LT -HOPD - 2 views HISTORY: Pain COMPARISON: None available. IMPRESSION: Displaced fracture of left radial head as well as posterior dislocation of elbow joint. Suspected tiny avulsion fracture of olecranon. Soft tissue swelling and small elbow joint effusion. Signed by: Dr. Matthias Petty MD on 02/20/2020 11:31 PM Dictated By: MATTHIAS PETTY MD HUMERUS 2 VIEW LT - HOPD - 4 views HISTORY: Pain COMPARISON: None available. IMPRESSION: No definite evidence of acute displaced fracture of the left humerus. Signed by: Dr. Matthias Petty MD on 02/20/2020 11:34 PM Dictated By: MATTHIAS PETTY MD 33 Transcribed By: KEVIN on 02/20/202333 Procedures Orthopedic Splinting/Casting Injury: Injury #1 Side: left Upper exremity injury location: elbow Upper extremity immobilizer: sugar tong splint (double) Other orthopedic equipment: other (sling) Additional comments Neurovasular intact after procedure Assessment & Plan Medical Decision Making MDM Differential dx includes, but not limited to fracture, sprain, strain, di slocation. Xray shows fracture dislocation of left elbow. Patient NV intact. Good radial pulse with brisk cap refill. Spoke with Dr. Brower who will reduce elbow closed reduction at Patient's hospital. Will splint for transfer. Spoke with [facility] refrigeration manager for Dr. Greco - Dr. Greco to admit. Reassessment Reassessment NV intact after splint placement Assessment & Plan Final Impression: (1) Elbow dislocation (2) Radial head fracture (3) Elbow fracture (4) Olecranon fracture Depart Disposition: [facility] Last Vital Signs Date Time Temp Pulse Resp B/P (MAP) Pulse Ox O2 Delivery O2 Flow Rate FiO2 02/20/20 22:23 98.0 74 18 193/83 100 Room Air Medications in the ED hydrocodone UZIEL MURRY MD Feb 20, 2020 22:48
[2020-02-21 05:19] LABS: BASOPHILS % 0.1 % (0.0-1.0); HEMATOCRIT 38.7 % (34.2-44.1); LYMPHOCYTES # (AUTO) 1.1 (1.0-3.2); LYMPHOCYTES % 7.3 % (18.0-39.1); MEAN CORPUSCULAR HEMOGLOBIN 27.8 pg (28-32); MEAN CORPUSCULAR VOLUME 89.6 fL (81-99); MONOCYTES # (AUTO) 0.5 (0.2-0.8); MONOCYTES % 3.5 % (4.4-11.3); NEUTROPHILS # (AUTO) 12.8 (2.1-6.9); NEUTROPHILS % 88.5 % (38.7-80.0); PLATELET COUNT 253 x10e3/uL (140-360); RED BLOOD COUNT 4.32 x10e6/uL (3.6-5.1); RED CELL DISTRIBUTION WIDTH 14.5 % (11.7-14.4)
[2020-02-21] MEDS: ONDANSETRON HCL INJ 2MG/ML 2ML 2 MG/ML VIAL IV PRN ×2 (05:30→11:02)
[2020-02-21] MEDS: SODIUM CHLORIDE 0.9% 1000ML 1,000 ML IV SCH ×3 (05:30→17:12)
[2020-02-21 05:55] LABS: ALANINE AMINOTRANSFERASE 8 IU/L (0-55); ALBUMIN 3.7 g/dL (3.5-5.0); ALBUMIN/GLOBULIN RATIO 1.2 (0.8-2.0); ALKALINE PHOSPHATASE 87 IU/L (40-150); ANION GAP 15.2 mmol/L (8-16); BLOOD UREA NITROGEN 17 mg/dL (7-26); BUN/CREATININE RATIO 24 (6-25); CALCIUM 8.9 mg/dL (8.4-10.2); CARBON DIOXIDE 19 mmol/L (22-29); CHLORIDE 107 mmol/L (98-107); EST GLOMERULAR FILTRATION RATE > 60 ML/MIN (60-); GLUCOSE 127 mg/dL (74-118); POTASSIUM 4.2 mmol/L (3.5-5.1); SODIUM 137 mmol/L (136-145)
[2020-02-21] MEDS ORDERED: CENTRUM SILVER1 EAC3 PO (05:56)
[2020-02-21] MEDS ORDERED: VITAMIN D3 COM1 EACH PO (05:56)
[2020-02-21] MEDS ORDERED: PRAVACHOL40 MG PO (05:56)
[2020-02-21] MEDS ORDERED: AMLODIPINE BESYL5 MG PO (05:56)
[2020-02-21] MEDS ORDERED: EYE DROPS15 ML OU (05:56)
[2020-02-21] MEDS ORDERED: CALCIUM PO (05:56)
[2020-02-21] MEDS ORDERED: ATENOLOL50 MG PO (05:56)
[2020-02-21] MEDS ORDERED: LEVOTHYROXINE88 MCG PO (05:56)
[2020-02-21] MEDS ORDERED: ALLEGRA ALLERG180 MG PO (05:56)
[2020-02-21] MEDS ORDERED: CLOTRIMAZOLE-BE15 GM TOP (05:56)
[2020-02-21] MEDS ORDERED: DOXAZOSIN MESYLA2 MG PO (05:56)
[2020-02-21] MEDS ORDERED: ASPIRIN81 MG PO (05:56)
[2020-02-21] MEDS ORDERED: BENICAR20 MG PO (05:56)
--- NOTE | 2020-02-21 08:44 | NUR ---
ORTHOPEDIC CONSULTATION 70 year old right hand dominant female presents to the ED after a mechanical fall with left elbow pain. She denies any numbness, paresthesias or loss of distal motor function. No pain in any other extremity PMdHx: HTN, HLD Allergies: Cephalexin, Fluconazole, Bactrim SurgHx: Hysterectomy, Sinus Surgery, Bunion Surgery FamHx: Non-contributory SocHx: Denies any Tob, EtOH, Drugs Meds: See reconciliation AVSS Gen: AAOx3, NAD, Morbidly Obese Left Upper Extremity In splint, clean, dry and intact Skin: Clean, dry and intact Motor: + AIN, PIN, Radial, Median, Ulnar Sensation grossly intact Pulses + Radial, Good capillary refill Compartments soft 70 year old female with fracture dislocation of Left Elbow Plan for closed reduction with manipulation at this time. Will likely require radial head arthroplasty Analgesics NWB LUE Rest, Ice & Elevation NPO except meds Hold anticoagulation IVF while NPO. Thank you for the consultation Louise Orourke DO
--- NOTE | 2020-02-21 08:53 | NUR ---
ORTHOPEDIC OPERATIVE NOTE Pre-Op Diagnosis: Left Elbow Fracture Dislocation Post-Op Diagnosis: Left Elbow Fracture Dislocation Procedure: 1. Closed Reduction with Manipulation of Left Elbow 2. Flouroscopic interpretation Surgeon: DO Sharad Assistants: None Anesthesia: General EBL: None Indication: 70 year old female who presented to urgent care with above injury while being neurovascularly intact.. Was not able to close reduce in urgent care or ER. Brought to OR for closed reduction. Findings: Left Elbow Fracture of Radial Head & Neck & Dislocation. Incarcerated Left Radial Head Posterior to Ulna. Procedure: After left upper extremity was marked and laterality was confirmed, the patient was brought to the operating room. A timeout was performed confirming patient and laterality of procedure. The splint was removed and the arm was carefully examined for any open lesions or sores. A closed reduction with manipulation was performed under flouroscopy. The ulnohumeral joint was reduced and demonstrated to be stable from 70 to 120 degrees. The arm was splinted and imaging was obtained again confirming continued reduction. The patient was awoken and transferred to the PACU under stable condition. Specimens: None Drains: None Complications: None Disposition: To Recovery Room, extubated, in stable condition. Patient will require a CT and plan for radial head arthroplasty versus ORIF.
[2020-02-21] MEDS ORDERED: HYDRALAZINE HCL 20 MG/ML VIAL IV PRN (09:30)
[2020-02-21 09:50] LABS: BASOPHILS % 0.3 % (0.0-1.0); HEMATOCRIT 36.2 % (34.2-44.1); HEMOGLOBIN 11.4 g/dL (12.0-16.0); LYMPHOCYTES # (AUTO) 1.6 (1.0-3.2); LYMPHOCYTES % 11.3 % (18.0-39.1); MEAN CORPUSCULAR HEMOGLOBIN 28.1 pg (28-32); MEAN CORPUSCULAR HGB CONC 31.5 g/dL (31-35); MEAN CORPUSCULAR VOLUME 89.2 fL (81-99); MONOCYTES # (AUTO) 0.6 (0.2-0.8); MONOCYTES % 4.5 % (4.4-11.3); NEUTROPHILS # (AUTO) 11.9 (2.1-6.9); NEUTROPHILS % 82.9 % (38.7-80.0); PLATELET COUNT 248 x10e3/uL (140-360); RED BLOOD COUNT 4.06 x10e6/uL (3.6-5.1); RED CELL DISTRIBUTION WIDTH 14.5 % (11.7-14.4)
[2020-02-21 10:04] LABS: INR 0.96; PROTHROMBIN TIME 13.3 seconds (11.9-14.5)
[2020-02-21 10:05] LABS: PARTIAL THROMBOPLASTIN TIME 27.9 seconds (23.8-35.5)
[2020-02-21 10:13] LABS: ALANINE AMINOTRANSFERASE 8 IU/L (0-55); ALBUMIN 3.4 g/dL (3.5-5.0); ALBUMIN/GLOBULIN RATIO 1.1 (0.8-2.0); ALKALINE PHOSPHATASE 80 IU/L (40-150); ANION GAP 15.1 mmol/L (8-16); BLOOD UREA NITROGEN 13 mg/dL (7-26); BUN/CREATININE RATIO 20 (6-25); CALCIUM 8.6 mg/dL (8.4-10.2); CARBON DIOXIDE 19 mmol/L (22-29); CHLORIDE 106 mmol/L (98-107); CREATININE, SERUM 0.64 mg/dL (0.57-1.11); EST GLOMERULAR FILTRATION RATE > 60 ML/MIN (60-); GLUCOSE 131 mg/dL (74-118); POTASSIUM 4.1 mmol/L (3.5-5.1); SODIUM 136 mmol/L (136-145)
--- NOTE | 2020-02-21 10:53 | NUR ---
FIRST URINATION AFTER SURGERY COMPLETED, PATIENT URINATED 200 ML.
--- NOTE | 2020-02-21 11:08 | Diagnostic Imaging Report ---
EXAMINATION: CHEST SINGLE (NOT PORTABLE) INDICATION: Preoperative evaluation of the lungs. COMPARISON: None FINDINGS: TUBES and LINES: None. LUNGS: Normal lung volumes. Lungs are clear. No consolidations. There is bibasilar atelectasis. PLEURA: No pleural effusion or pneumothorax. HEART AND MEDIASTINUM: The cardiomediastinal silhouette is unremarkable. BONES AND SOFT TISSUES: No acute osseous lesion. Soft tissues are unremarkable. UPPER ABDOMEN: No free air under the diaphragm. IMPRESSION: No acute thoracic radiographic abnormality. Bibasilar atelectasis. Signed by: Ry Gusman MD on 02/21/2020 11:04 AM
--- NOTE | 2020-02-21 11:08 | Diagnostic Imaging Report ---
EXAM: CT of the elbow without contrast. INDICATION: Status post fall with elbow dislocation. COMPARISON: Plain radiographs of the elbow on 02/20/2020. TECHNIQUE: Left elbow was scanned utilizing a multidetector helical scanner from mid humerus to mid forearm without administration of IV contrast. Coronal and sagittal reformations were obtained. Routine protocol was performed. IV CONTRAST: None COMPLICATIONS: None RADIATION DOSE: Total DLP: 535.52 mGy*cm Estimated effective dose: (DLP x 0.014 x size factor) mSv CTDIvol has been reviewed. It is below the limits set by the Radiation Protocol Committee (RPC). Dose modulation, iterative reconstruction, and/or weight based adjustment of the mA/kV was utilized to reduce the radiation dose to as low as reasonably achievable. FINDINGS: BONES/JOINTS: The olecranon is not not completely imaged. There is redemonstration of comminuted olecranon fracture with anterior dislocation of the distal humerus and the radioulnar joint. There is also comminuted radial head fracture and dislocation of the radiocapitellar joint. There are multiple intra-articular osseous fragments. SOFT TISSUES: There is soft tissue swelling surrounding the fracture. IMPRESSION: Comminuted fracture dislocation of the ulnohumeral and radiocapitellar joints with multiple intraarticular loose fragments and surrounding soft tissue swelling. Signed by: Ry Gusman MD on 02/21/2020 11:04 AM
[2020-02-21] MEDS: TETRAHYDROZOLINE HCL(OPTH) 30 ML BOTTLE OP SCH ×3 (13:00→21:00)
[2020-02-21] MEDS ORDERED: MIDAZOLAM HCL 2 MG/2 ML VIAL ONE (14:55)
[2020-02-21] MEDS ORDERED: FENTANYL CITRATE/PF 100MCG/2 ML INJ ONE (14:55)
[2020-02-21] MEDS: ATENOLOL 50 MG TAB PO SCH (17:15)
[2020-02-21] MEDS: FAMOTIDINE 20 MG TAB PO SCH (17:15)
--- NOTE | 2020-02-21 19:00 | NUR ---
BEDSIDE NURSING REPORT RECEIVED FORM MORNING NURSE. PT ALERT AND ORIENT TO NAME, LYING IN BED HOB 45 DEGREES LEFT ARM WITH SLING. DENIES PAIN AT THIS TIME. CALL LIGHT WITHIN REACH. BED LOW AND LOCKED.
[2020-02-21] MEDS: DOXAZOSIN MESYLATE 2 MG TAB PO SCH (21:30)
[2020-02-21] MEDS: SIMVASTATIN 40 MG TAB PO SCH (21:30)
[2020-02-21] MEDS: ACETAMINOPHEN 325 MG TAB PO PRN (23:50)
[2020-02-22] VITALS (8 sets, daily range): BP systolic 123–162; BP diastolic 58–88
[2020-02-22] MEDS: SODIUM CHLORIDE 0.9% 1000ML 1,000 ML IV SCH ×4 (01:30→23:15)
[2020-02-22 04:51] LABS: BASOPHILS % 0.2 % (0.0-1.0); EOSINOPHILS % 0.1 % (0.0-6.0); HEMATOCRIT 33.9 % (34.2-44.1); HEMOGLOBIN 10.5 g/dL (12.0-16.0); LYMPHOCYTES # (AUTO) 1.8 (1.0-3.2); LYMPHOCYTES % 15.8 % (18.0-39.1); MEAN CORPUSCULAR HEMOGLOBIN 28.1 pg (28-32); MEAN CORPUSCULAR VOLUME 90.6 fL (81-99); MONOCYTES # (AUTO) 0.9 (0.2-0.8); MONOCYTES % 8.3 % (4.4-11.3); NEUTROPHILS # (AUTO) 8.5 (2.1-6.9); PLATELET COUNT 240 x10e3/uL (140-360); RED BLOOD COUNT 3.74 x10e6/uL (3.6-5.1); RED CELL DISTRIBUTION WIDTH 14.7 % (11.7-14.4)
[2020-02-22 05:23] LABS: ALANINE AMINOTRANSFERASE 7 IU/L (0-55); ALKALINE PHOSPHATASE 71 IU/L (40-150); ANION GAP 14.7 mmol/L (8-16); BLOOD UREA NITROGEN 13 mg/dL (7-26); BUN/CREATININE RATIO 19 (6-25); CALCIUM 8.3 mg/dL (8.4-10.2); CARBON DIOXIDE 19 mmol/L (22-29); CHLORIDE 109 mmol/L (98-107); EST GLOMERULAR FILTRATION RATE > 60 ML/MIN (60-); GLUCOSE 111 mg/dL (74-118); POTASSIUM 3.7 mmol/L (3.5-5.1); SODIUM 139 mmol/L (136-145)
[2020-02-22] MEDS: LEVOTHYROXINE SODIUM 88 MCG TAB PO SCH (05:30)
[2020-02-22] MEDS: TETRAHYDROZOLINE HCL(OPTH) 30 ML BOTTLE OP SCH ×5 (05:34→20:22)
[2020-02-22 05:45] LABS: THYROID STIMULATING HORMONE 1.079 uIU/mL (0.350-4.940)
[2020-02-22] MEDS: ACETAMINOPHEN 325 MG TAB PO PRN (05:50)
--- NOTE | 2020-02-22 07:00 | NUR ---
BEDSIDE SHIFT REPORT RECEIVED FROM IRISH MOSS BLEACHER RN. PT DENIES NEEDS AT THIS TIME.
[2020-02-22] MEDS: AMLODIPINE BESYLATE 5 MG TAB PO SCH (07:55)
[2020-02-22] MEDS: FAMOTIDINE 20 MG TAB PO SCH ×2 (07:55→16:49)
[2020-02-22] MEDS: ATENOLOL 50 MG TAB PO SCH ×2 (07:56→16:50)
[2020-02-22] MEDS: OLMESARTAN 20 MG TAB PO SCH (07:56)
--- NOTE | 2020-02-22 09:32 | Progress Note ---
DATE: 02/22/2020 CHIEF COMPLAINT: Left elbow pain. HISTORY OF PRESENT ILLNESS: Ms. Rasmussen is a 70-year-old female with a history of hypertension, who presents for evaluation of left elbow pain. She was found to have a left elbow dislocation and comminuted radial head fracture and underwent closed reduction and splinting by Dr. Orourke on 02/21/2020. She presents for further care. She reports pain in her left elbow only. She denies any numbness or tingling into her fingers. She currently lives with her son. She has no pain elsewhere. PHYSICAL EXAMINATION: Left upper extremity in splint, which is clean, dry, and intact. She has intact AIN, PIN, and ulnar nerve motor function. Sensation intact to light touch in all of her fingers. Her fingers are warm, well perfused. She has no tenderness to palpation about the shoulder or hand. REVIEW OF SYSTEMS: Negative for any fever or chills. Negative for numbness or tingling. IMAGING: X-rays as well as CT scan demonstrate a comminuted radial head fracture and anterior dislocation of the humerus. Small cortical avulsion fracture of coronoid. ASSESSMENT: Left elbow dislocation/terrible triad injury PLAN: Discussed with the patient pathology as well as treatment options. Recommend likely radial head arthroplasty versus open reduction, internal fixation, and lateral collateral ligament repair. I discussed with the patient postoperative course as well as need for therapy. Discussed risks and benefits of surgery including bleeding, infection, damage to vascular structure, need for additional surgery, therapy need, need for additional surgery, persistent pain, stiffness, and possible loss of life or limb, and knowing this, she elected to proceed. We will plan for surgery tomorrow. Please make n.p.o. after midnight and obtain 2 g of Ancef on-call to OR. MD MAURO Park/TRACY /[id number] CHERRY
--- NOTE | 2020-02-22 19:37 | NUR ---
Received pt sitting on side of bed a/o x3. No c/o at this time, bed low and locked, call light within reach. no s/sx of acute distress. Bedside report given.
[2020-02-22] MEDS ORDERED: KETOROLAC TROMETHAMINE 30 MG/ML VIAL ONE (20:09)
[2020-02-22] MEDS ORDERED: PROPOFOL IV EMULSION 10 MG/ML 20 ML VIAL ONE (20:09)
[2020-02-22] MEDS ORDERED: DEXAMETHASONE SOD PHOS INJ 4 MG/ML VIAL ONE (20:09)
[2020-02-22] MEDS ORDERED: LIDOCAINE HCL 2% LOCAL INJ 5 ML SDV VIAL INJ ONE (20:09)
[2020-02-22] MEDS ORDERED: SEVOFLURANE INHAL SOLN 250 ML PEN BTL ONE (20:09)
[2020-02-22] MEDS ORDERED: ONDANSETRON HCL INJ 2MG/ML 2ML 2 MG/ML VIAL ONE (20:09)
[2020-02-22] MEDS: DOXAZOSIN MESYLATE 2 MG TAB PO SCH (20:22)
[2020-02-22] MEDS: SIMVASTATIN 40 MG TAB PO SCH (20:22)
[2020-02-23] VITALS: BP 154/56
[2020-02-23 04:00] VITALS: BP 149/53
[2020-02-23 04:38] LABS: BASOPHILS # (AUTO) 0.1 (0.0-0.1); BASOPHILS % 0.5 % (0.0-1.0); EOSINOPHILS # (AUTO) 0.3 (0.0-0.4); EOSINOPHILS % 3.1 % (0.0-6.0); HEMATOCRIT 32.2 % (34.2-44.1); HEMOGLOBIN 10.1 g/dL (12.0-16.0); LYMPHOCYTES # (AUTO) 2.6 (1.0-3.2); LYMPHOCYTES % 27.1 % (18.0-39.1); MEAN CORPUSCULAR HEMOGLOBIN 28.1 pg (28-32); MEAN CORPUSCULAR HGB CONC 31.4 g/dL (31-35); MEAN CORPUSCULAR VOLUME 89.7 fL (81-99); MONOCYTES # (AUTO) 0.9 (0.2-0.8); MONOCYTES % 8.8 % (4.4-11.3); NEUTROPHILS # (AUTO) 5.8 (2.1-6.9); NEUTROPHILS % 60.2 % (38.7-80.0); PLATELET COUNT 216 x10e3/uL (140-360); RED BLOOD COUNT 3.59 x10e6/uL (3.6-5.1); RED CELL DISTRIBUTION WIDTH 14.8 % (11.7-14.4)
[2020-02-23 04:58] LABS: ALANINE AMINOTRANSFERASE 7 IU/L (0-55); ALBUMIN 2.8 g/dL (3.5-5.0); ALKALINE PHOSPHATASE 64 IU/L (40-150); ANION GAP 12.6 mmol/L (8-16); BLOOD UREA NITROGEN 14 mg/dL (7-26); BUN/CREATININE RATIO 22 (6-25); CARBON DIOXIDE 22 mmol/L (22-29); CHLORIDE 111 mmol/L (98-107); CREATININE, SERUM 0.64 mg/dL (0.57-1.11); EST GLOMERULAR FILTRATION RATE > 60 ML/MIN (60-); GLUCOSE 93 mg/dL (74-118); POTASSIUM 3.6 mmol/L (3.5-5.1); SODIUM 142 mmol/L (136-145)
[2020-02-23] MEDS ORDERED: TYLENOL WITH C1 EACH PO (05:38)
[2020-02-23] MEDS: LEVOTHYROXINE SODIUM 88 MCG TAB PO SCH (05:56)
--- NOTE | 2020-02-23 07:00 | NUR ---
BEDSIDE SHIFT REPORT RECEIVED FROM SUPERVISOR IN CIRCUIT TESTING RN. PT DENIES NEEDS AT THIS TIME.
[2020-02-23] MEDS: FAMOTIDINE 20 MG TAB PO SCH ×2 (07:30→17:17)
[2020-02-23 08:30] VITALS: BP 136/70
[2020-02-23] MEDS: TETRAHYDROZOLINE HCL(OPTH) 30 ML BOTTLE OP SCH ×4 (08:57→21:34)
[2020-02-23] MEDS: OLMESARTAN 20 MG TAB PO SCH (08:57)
--- NOTE | 2020-02-23 08:57 | NUR ---
2 DAY OBS. CALL TO TOMMY TO DISCUSS PLAN. PT FOR SURGERY AGAIN TODAY; ARTHROPLASTY VS ORIF BY DR. PAZ. TOMMY STATES THE PT MAY GO HOME AFTER THE PROCEDURE. WILL CHANGE TO INPT IF SHE DOES NOT.
[2020-02-23] MEDS: ATENOLOL 50 MG TAB PO SCH ×2 (08:58→17:00)
[2020-02-23] MEDS: AMLODIPINE BESYLATE 5 MG TAB PO SCH (08:58)
[2020-02-23] MEDS: SODIUM CHLORIDE 0.9% 1000ML 1,000 ML IV SCH ×2 (08:58→18:06)
[2020-02-23 09:21] VITALS: BP 136/70
[2020-02-23] MEDS ORDERED: LIDOCAINE HCL 1% LOCAL INJ 20 ML VIAL ONE (09:36)
[2020-02-23] MEDS ORDERED: BUPIVACAINE HCL 0.5% INJ 30 ML VIAL INJ ONE (09:36)
[2020-02-23] MEDS ORDERED: CLINDAMYCIN PHOS 900MG/ 50ML 50 ML IV ONE (10:33)
[2020-02-23] MEDS ORDERED: ACETAMINOPHEN 1000 MG/100 ML 100 ML IV ONE (13:29)
[2020-02-23] MEDS ORDERED: FENTANYL CITRATE/PF 100MCG/2 ML INJ ONE (15:14)
[2020-02-23] MEDS ORDERED: MIDAZOLAM HCL 2 MG/2 ML VIAL ONE (15:14)
[2020-02-23] MEDS: ONDANSETRON HCL INJ 2MG/ML 2ML 2 MG/ML VIAL IV PRN (15:22)
[2020-02-23] MEDS ORDERED: HYDROMORPHONE 1MG/1ML INJ ONE (15:31)
[2020-02-23] MEDS ORDERED: PROMETHAZINE HCL (IM) 25 MG/ML VIAL IM ONE (15:33)
[2020-02-23] MEDS ORDERED: HYDRALAZINE HCL 20 MG/ML VIAL ONE (15:49)
--- NOTE | 2020-02-23 16:45 | NUR ---
PT TO THE FLOOR FROM PACU. VITALS WNL. PT DENIES NEEDS AT THIS TIME.
[2020-02-23 17:00] VITALS: BP 99/58
[2020-02-23 20:00] VITALS: BP 147/66
[2020-02-23] MEDS: SIMVASTATIN 40 MG TAB PO SCH (21:07)
[2020-02-23] MEDS: DOXAZOSIN MESYLATE 2 MG TAB PO SCH (21:08)
[2020-02-23] MEDS: CLINDAMYCIN 600MG / 50ML 50 ML IV SCH (21:11)
--- NOTE | 2020-02-23 21:26 | Operative Report ---
DATE OF PROCEDURE: 02/23/2020 SURGEON: Raven Parson MD ADDITIONAL ATTENDING PHYSICIAN: Raven Parson MD PREPROCEDURE DIAGNOSIS: Left elbow terrible triad fracture. POSTPROCEDURE DIAGNOSIS: Left elbow terrible triad fracture. PROCEDURE PERFORMED: Left radial head arthroplasty, open reduction and internal fixation of coronoid fracture, lateral collateral ligament repair, and open treatment of acute elbow dislocation. STATION BAGGAGE AGENT: None. ANESTHESIA: General. COMPLICATIONS: None. SPECIMENS: None. ESTIMATED BLOOD LOSS: Minimal. INDICATIONS FOR PROCEDURE: Olga Rasmussen is a 70-year-old female who sustained a left elbow dislocation as well as displaced radial head fracture and nondisplaced type 1 coronoid fracture after she tripped on a dog and dislocated her elbow. She was seen in the emergency department and underwent a closed reduction and splinting in the operating room two days prior. CT scan was performed demonstrating persistent instability of the elbow. Benefits and risks of surgery were discussed with the patient including bleeding, infection, damage to vascular structures, need for additional surgery, persistent pain, stiffness, possible loss of life or limb and knowing this, she would like to proceed with surgery. DESCRIPTION OF PROCEDURE: The patient was identified in the preoperative holding area where the above noted site was marked. She was then transferred to the operating room and above noted anesthesia was induced. She was placed supine on the table with the left upper extremity onto the hand table. Left upper extremity was then prepped and draped in the usual sterile fashion. A sterile tourniquet was placed onto the upper extremity. Preoperative antibiotics were dosed. The Esmarch was used to exsanguinate the limb and tourniquet was raised to 250 mmHg. We performed a preprocedural time-out and all were in agreement to begin. We made an approximately 7 cm incision centered over the lateral epicondyle. We incised the skin and subcutaneous tissue taking care to achieve careful hemostasis and raising full-thickness flaps off the extensor fascia. There was noted to be a very large rent in the fascia as well as a traumatic rent through the essentially Renetta's interval, which probed down to the joint. There was noted to be a comminuted radial head fragment that was sitting just underneath the traumatic rent in the joint. We extended this interval proximally and distally and then gained access to the joint. The lateral collateral ligament was noted to be completely stripped off the distal insertion. The radial head was noted to be fractured at the neck junction and copious irrigation was performed and we retrieved the radial head fragments. There was a retained radial head fragment that was able to be palpated along the medial side of the elbow. I was unable to remove this through the lateral incision and then turned my attention medially, and made an approximately 4 cm incision centered over the medial aspect of the elbow. We incised the skin, subcutaneous tissues, and the radial head was noted to be extruded out through a traumatic rent in the medial capsule and was sitting in the subcutaneous tissues medially. This was then removed. The radial head was then sized on the back table and was noted to measure almost 24 mm. We then turned our attention to continued treatment of the lateral side of the elbow. Copious irrigation was performed in taking care to remove any remaining loose bodies or fragments. We then turned our attention to our preparation of the radial neck. The radial head was again noted to be not reconstructible as it was in greater than three fragments and significantly devascularized. We first inserted the entry reamer followed by sequential broaching up to a size seven stem, which achieved good cortical chatter. We then removed the broach and placed the canal reamer to smooth out the ends of the cut. We then placed our trial stem in and measured and are not felt that a plus four neck would be appropriate. This was noted to have good stability as well as continued contact of the coronoid to the trochlea. We evaluated this under multiplanar fluoroscopy, and the head was noted to be a good size and did not show any evidence of overstuffing. At this point, we then removed the trial and set aside for later placement. We then turned our attention to fixation of the coronoid fracture. There was noted to be a very small avulsion fracture off the tip of the coronoid. Due to her significant instability that was noted intraoperatively, we elected to repair this using a suture Lasso technique. We made an approximately 3 cm incision on the subcutaneous border of the ulna and using the ACL guide, I centered the ACL drill guide over the tip of the coronoid and drilled two holes using a 1.4 mm drill bit. Once we had these in place, we used a #2 FiberWire to perform a locking suture into the anterior capsule taking care with placement of this suture to avoid any neurovascular structures. Using suture passers, they were then passed up through the tunnel along the subcutaneous border and were used to retrieve the previously passed sutures into the anterior capsule, bringing the fragment down to bone. Once we had done this, we then set this aside. We then turned our attention to replacement of her radial head. We copiously irrigated again. We then aligned the radial head in its anatomic alignment on the line of Jack's tubercle and began to gently impacted down the canal. There was noted to be a very small nondisplaced crack at the radial neck. We continued to watch this crack as the stem was advanced and it was noted to propagate somewhat distally down the shaft. At this point, we had concern for propagation of a fracture and I elected to place a cerclage wire. An 18-gauge stainless steel wire was then placed around the surface of the radius, taking care to stay on bone throughout the entire placement of this. This was then tightened down and we then continued to insert the radial head. Once the radial head was then inserted and stem were then inserted to proper length. The cerclage wire was then further tightened. It was then cut and bent over and came down into bone. We took it through a gentle pronator supination, though it was not noted to impinging the structures. At this point, we then satisfied with radial head replacement. We then turned our attention to tying down our sutures for our anterior capsule. The previously placed #2 FiberWire sutures were then tightened down and was then tied over a bone bridge. We then turned our attention back to repair of lateral collateral ligaments. We selected a 1.45 mm JuggerKnot anchor and placed this at the center rotation of the lateral epicondyle. Once the anchor was in place, we then performed a locking Krackow stitch to gain fixation of the lateral collateral ligament and then tied this down to bone, with the arm in pronation and with a varus stress applied. Once we had this taken down, we then continued to reinforce the repair using #2 FiberWire both proximally and distally. At this point, we then evaluated under multiplanar fluoroscopy. The elbow was noted to be stable. We were able to range the elbow from 0-120 degrees without any dislocation. Hanging arm test noted stability. There was full pronation and supination without any instability and we demonstrated this on x-ray as well. We were able to achieve a very stable arc range of motion between 30 and 120 degrees. At this point, we then satisfied with the fixation. I did not feel that there was any need to address any pathology along the medial side. The wounds were copiously irrigated. The fascia was closed with 2-0 Vicryl and 3-0 Vicryl was used for the subcutaneous tissues, followed by mariola for all the incisions. A soft sterile dressing was then placed followed by a splint at 90 degrees. Fluoroscopic imaging in the splint was then obtained in the operating room demonstrating continued anatomic reduction of the elbow. The tourniquet, of note was let down at 2 hours in the surgery. The patient was then woken from anesthesia, was taken to PACU in stable condition. POSTOPERATIVE PLAN: The patient will be discharged home today. She will leave her splint on for two weeks. If she is back in clinic, at which point she will be transition to a hinged elbow brace. MD MAURO Park/TRACY /[id number] CHERRY
[2020-02-23] MEDS ORDERED: ONDANSETRON HCL INJ 2MG/ML 2ML 2 MG/ML VIAL ONE (21:34)
[2020-02-23] MEDS ORDERED: DESFLURANE 240 ML BTL INH ONE (21:34)
[2020-02-23] MEDS ORDERED: METOCLOPRAMIDE HCL 10 MG/2ML VIAL ONE (21:34)
[2020-02-23] MEDS ORDERED: LIDOCAINE HCL 2% LOCAL INJ 5 ML SDV VIAL INJ ONE (21:34)
[2020-02-23] MEDS ORDERED: PROPOFOL IV EMULSION 10 MG/ML 20 ML VIAL ONE (21:34)
[2020-02-23] MEDS ORDERED: DEXAMETHASONE SOD PHOS INJ 4 MG/ML VIAL ONE (21:34)
[2020-02-24] VITALS: BP 148/62
[2020-02-24] MEDS: SODIUM CHLORIDE 0.9% 1000ML 1,000 ML IV SCH ×2 (01:30→09:20)
[2020-02-24 04:00] VITALS: BP 160/55
[2020-02-24] MEDS: ACETAMINOPHEN 325 MG TAB PO PRN (04:51)
[2020-02-24 05:01] LABS: BASOPHILS % 0.1 % (0.0-1.0); HEMATOCRIT 32.3 % (34.2-44.1); HEMOGLOBIN 10.3 g/dL (12.0-16.0); LYMPHOCYTES # (AUTO) 1.5 (1.0-3.2); LYMPHOCYTES % 11.2 % (18.0-39.1); MEAN CORPUSCULAR HEMOGLOBIN 28.9 pg (28-32); MEAN CORPUSCULAR HGB CONC 31.9 g/dL (31-35); MEAN CORPUSCULAR VOLUME 90.7 fL (81-99); MONOCYTES # (AUTO) 1.3 (0.2-0.8); MONOCYTES % 9.6 % (4.4-11.3); NEUTROPHILS # (AUTO) 10.3 (2.1-6.9); NEUTROPHILS % 78.4 % (38.7-80.0); PLATELET COUNT 231 x10e3/uL (140-360); RED BLOOD COUNT 3.56 x10e6/uL (3.6-5.1); RED CELL DISTRIBUTION WIDTH 14.8 % (11.7-14.4)
[2020-02-24 05:20] LABS: ALANINE AMINOTRANSFERASE 8 IU/L (0-55); ALBUMIN 2.9 g/dL (3.5-5.0); ALKALINE PHOSPHATASE 67 IU/L (40-150); ANION GAP 11.8 mmol/L (8-16); BLOOD UREA NITROGEN 16 mg/dL (7-26); BUN/CREATININE RATIO 22 (6-25); CALCIUM 8.1 mg/dL (8.4-10.2); CARBON DIOXIDE 23 mmol/L (22-29); CHLORIDE 110 mmol/L (98-107); CREATININE, SERUM 0.74 mg/dL (0.57-1.11); EST GLOMERULAR FILTRATION RATE > 60 ML/MIN (60-); GLUCOSE 119 mg/dL (74-118); POTASSIUM 3.8 mmol/L (3.5-5.1); SODIUM 141 mmol/L (136-145)
[2020-02-24] MEDS ORDERED: ZOFRAN4 MG PO (05:42)
[2020-02-24] MEDS ORDERED: NORCO 5-325 TA1 EACH PO (05:42)
[2020-02-24] MEDS: LEVOTHYROXINE SODIUM 88 MCG TAB PO SCH (05:55)
[2020-02-24] MEDS: CLINDAMYCIN 600MG / 50ML 50 ML IV SCH (05:55)
--- NOTE | 2020-02-24 07:12 | NUR ---
REPORT GIVEN TO DAYSHIFT NURSE. ALERT AND ORIENTED. RESTING. NO SIGNS IV INFILTRATION. BED LOCKED AND IN LOW POSITION. CALL LIGHT WITHIN REACH.
[2020-02-24] MEDS ORDERED: ONDANSETRON HCL 4 MG ORAL DISINTEGRATING TAB PO PRN (08:00)
[2020-02-24 08:14] VITALS: BP 141/66
[2020-02-24] MEDS: TETRAHYDROZOLINE HCL(OPTH) 30 ML BOTTLE OP SCH (09:19)
[2020-02-24] MEDS: OLMESARTAN 20 MG TAB PO SCH (09:19)
[2020-02-24] MEDS: AMLODIPINE BESYLATE 5 MG TAB PO SCH (09:19)
[2020-02-24] MEDS: FAMOTIDINE 20 MG TAB PO SCH (09:19)
[2020-02-24] MEDS: ATENOLOL 50 MG TAB PO SCH (09:19)
[2020-02-24 09:56] VITALS: BP 141/60
--- NOTE | 2020-02-25 02:44 | Discharge Summary ---
ADMISSION DIAGNOSES: Left elbow dislocation with fracture, hypertension, hyperlipidemia, hypothyroidism, chronic dry eyes, and morbid obesity with a BMI of 42.5. DISCHARGE DIAGNOSES: Left elbow dislocation with fracture, hypertension, hyperlipidemia, hypothyroidism, chronic dry eyes, and morbid obesity with a BMI of 42.5. HISTORY: Hypertension, hyperlipidemia, hypothyroidism, chronic dry eyes. SURGICAL HISTORY: Hysterectomy, left bunionectomy, sinus surgery. FAMILY HISTORY: The patient's brother had diabetes and the patient's son had cancer. SOCIAL HISTORY: Noncontributory. HOSPITAL COURSE: A 70-year-old female admitted with left arm pain, status post fall onto her grass last night around 09:30 p.m. She tripped while letting her dog out and landed on her left arm first. She did not hear a pop, but she knew it was broken due to a sharp shooting pain, decreased range of motion, and a shifting of the bone. On admission, x-ray of the left elbow showed a displaced fracture of the left radial head as well as a posterior dislocation of the radius and ulna with respect to the humerus, suspected tiny avulsion fracture of the olecranon. Humerus x-ray showed no definite evidence of acute displaced fracture of the left humerus. Chest x-ray showed no acute abnormality. Initially, the patient was taken to the OR and had closed reduction of the left elbow, after which they repeated a CAT scan of the elbow, which showed re-demonstration of the olecranon fracture with anterior dislocation of the distal humerus and radioulnar joint. At that point, the specialist was consulted and the patient was taken back to the OR the following day for a radial head arthroplasty. The patient tolerated the procedure well. She also had open reduction and internal fixation of the coronoid fracture, lateral collateral ligament repair, and open treatment of acute elbow dislocation. The patient's arm was put in the splint and sling. She will keep the splint on for 2 weeks and then it will be replaced by a hinged elbow brace. The specialist will order the occupational therapy outpatient at a followup visit. The patient is feeling much better and ready to discharge home. She was given new prescriptions for pain medicine and Zofran. She will follow up with primary care in 1 to 2 weeks and Ortho as discussed. Dictated by Kaci Easley, JOSEMANUEL MD CELESTE Samuel/TRACY /[id number]
== END 2020-02-24 11:10 | disposition home or self-care (01) ==
LOC: FSED 22:38 → ERHOLD 02-21 01:20 → MED/SURG 02-21 03:39 → OBSVTOIN 02-22 08:52 → INTOOBSV 02-22 08:52
PROVIDERS: ADMIT Internal Medicine; ATTEND Internal Medicine
DX: S52.122A Displaced fracture of head of left radius, initial encounter for closed fracture (principal); S52.022A Displaced fracture of olecranon process without intraarticular extension of left ulna, initial encounter for closed fracture; S42.402A Unspecified fracture of lower end of left humerus, initial encounter for closed fracture; W01.0XXA Fall on same level from slipping, tripping and stumbling without subsequent striking against object, initial encounter; Y93.89 Activity, other specified; Y92.017 Garden or yard in single-family (private) house as the place of occurrence of the external cause; I10 Essential (primary) hypertension; E03.9 Hypothyroidism, unspecified; Z88.1 Allergy status to other antibiotic agents; Z88.8 Allergy status to other drugs, medicaments and biological substances; E78.5 Hyperlipidemia, unspecified; E66.01 Morbid (severe) obesity due to excess calories; Z68.41 Body mass index [BMI] 40.0-44.9, adult
CPT/HCPCS: 24366; 24620; 24685; 36415 ×4; 71045; 73060; 73080; 73090; 73200; 80053 ×4; 83036; 84443; 85025 ×4; 85610; 85730; 86850; 86900; 93005; 96360; 96361; 99284; C1713 ×2; C1769; G0378 ×4; J0131; J0360; J1100 ×2; J1170; J1885; J2001 ×2; J2250 ×2; J2405 ×3; J2550; J2704 ×2; J2765; J3010 ×2; J7030 ×3; U0002; 76000

== ENCOUNTER 2020-03-07 14:32 | Emergency (ER) | payer MEDICARE ==
[~2020-03-07] VITALS: Ht 160 cm; Wt 108.4 kg
[~2020-03-07 14:32] MED LIST: ALLEGRA ALLERG180 MG PO; AMLODIPINE BESYL5 MG PO; ASPIRIN81 MG PO; ATENOLOL50 MG PO; BENICAR20 MG PO; CALCIUM PO; CENTRUM SILVER1 EAC3 PO; CLOTRIMAZOLE-BE15 GM TOP; DOXAZOSIN MESYLA2 MG PO; EYE DROPS15 ML OU; LEVOTHYROXINE88 MCG PO; NORCO 5-325 TA1 EACH PO; PRAVACHOL40 MG PO; TYLENOL WITH C1 EACH PO; VITAMIN D3 COM1 EACH PO; ZOFRAN4 MG PO
--- OUTSIDE RECORDS SUMMARY | 2020-03-07 15:10 | XMS REPORT | Continuity of Care Document ---
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 Role Phone [email or web address] Unavailable Un available Problems Problem Status Onset Date Classification Date Reported Comments Source Rheumatoid Arthritis Active 08/26/2013 [facility] Hypertension Active 08/26/2013 [facility] Acute Conjunctivitis Active 08/26/2013 [facility] Periorbital Cellulitis Active 08/26/2013 [facility] Acute Upper Respiratory Infection Active 08/26/2013 [facility] Cellulitis Active 08/26/2013 [facility] Hypothyroidism Active 08/26/2013 [facility] Medications Medication Details Route Status Patient Instructions Ordering Provider Order Date Source Betamethasone Dipropionate Aug 0.05 % External Ointmen t ; Start Date: 08/26/2013; End Date: (Active) Active 08/26/2013 [facility] Mupirocin 2 % External Ointment ; Start Date: 08/26/2013; End Date: (Active) Active 08/26/2013 [facility] Clindamycin HCl 300 MG Oral Capsule ; Start Date: 08/26/2013; End Date: (Active) Active 08/26/2013 [facility] Sulfamethoxazole-TMP DS 800-160 MG Oral Tablet ; Start Date: 08/26/2013; End Date: (Active) Active 08/26/2013 [facility] Cortisporin-TC 3.3-3-10-0.5 MG/ML Otic Suspension ; Start Date: 08/26/2013; End Date: (Active) Active 08/26/2013 [facility] Amoxicillin-Pot Clavulanate 500-125 MG Oral Tablet ; Start Date: 05/13/2013; End Date: (Active) Active 05/13/2013 [facility] Cefdinir 300 MG Oral Capsule ; Start Date: 02/24/2013; End Date: (Active) Active 02/24/2013 [facility] Levothyroxine Sodium 88 MCG Oral Tablet ; Start Date: ; End Date: (Active) Inactive [facility] Atenolol 100 MG Oral Tablet ; Start Date: ; End Date: (Active) Inactive [facility] Doxazosin Mesylate 2 MG Oral Tablet (Active) Active [facility] Levothyroxine Sodium 88 MCG Oral Tablet (Active) Active [facility] Atenolol 100 MG Oral Tablet ( Active) Active [facility] Benicar HCT 40-12.5 MG Oral Tablet (Active) Active [facility] Antivert 25 MG Oral Tablet (A ctive) Active [facility] Phenergan 25 MG TABS (Active) Active [facility] Omnicef 300 MG CAPS (Active) Active [facility] PredniSONE 10 MG Oral Tablet (Active) Active [facility] Allergies, Adverse Reactions, Alerts Substance Category Reaction Severity Reaction type Status Date Reported Comments Source No Known Drug Allergies drug a llergy drug aller gy Active [facility] Immunizations No Data Provided for This [...] ADM Date DC Date Status Source AUDIT [id number] 02/24/2013 02/24/2013 [facility] ECL, Provi maggie: MEMO WILSON, Status: Pen, Time: 8:30 AM [id number] 02/25/20 13 02/24/2013 [facility] AUDIT [id number] 05/13/2013 05/13/2013 [facility] AUDIT [id number] 08/26/2013 08/26/2013 [facility] FUMary, Provluz maria maggie: MEMO WILSON, Status: Pen, Time: 1:00 PM [id number] 08/28/19 14 08/26/2013 [facility] Procedures No Data Provided for This Section Assessment and Plan No Data Provided for This Section Plan of Care Plan of Care Date Source [[facility]] CBC (INCLUDES DIFF/PLT) 05/13/2013 Routine[[facility]] CMP W/EGFR 05/13/2013 Routine[Q] LIPID PANEL WITH REFLEX TO DIRECT LDL 05/13/2013 Routine[[facility]] TSH, 3RD GENERATION 05/13/2013 Routine 05/13/2013 [facility] Social History Social History Date Source Never A Smoker (Active) 08/26/2013 [facility] Family History No Data Provided for This Section Advance Directives Order Name Results Value Date Source Advance Directives Advance Dir ectives No Advance Directives available. 08/26/2013 [facility] Advance Directives Advance Dir ectives No Advance Directives available. 05/13/2013 [facility] Advance Directives Advance Dir ectives No Advance Directives available. 02/24/2013 [facility] Functional Status No Data Provided for This Section
--- OUTSIDE RECORDS SUMMARY | 2020-03-07 15:11 | XMS REPORT | Continuity of Care Document ---
Author Author [facility] t Organization [facility] Address [address] [place] [address] 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 Attphys Unavaila GREGG Cerda M.D. Attphys Unavailable VASCULAR, SE Attphys Unavailable [facility], ECHO Attphys Unavailable DALTON PHIPPS M.D. Attphys Unavailable JALEESA FLORES Attphys Unavailable ISABELLE GEE APRN Attphys Unavailable SCOTTY GUTIERREZ M.D. Attphys Unavailable [facility], NUCLEAR Attphys Unavailable LIUDMILA FAGAN, P.AAshkan Attphys Unavailable MAKAYLA VU Admphys Unavailable Problems Condition Name Condition Details Condition Category Status Onset Date Resolution Date Last Treatment Date Treating Clinician Comments Source Encounter for mini-mental status examination Encounter for mini-mental status examination Problem Active [facility] History of Acute laryngitis History of Acute laryngitis Problem Resolved [facility] Maxillary sinusitis, acute Maxillary sinusitis, acute Problem Active [facility] History of acute sinusitis History of acute sinusitis Problem Resolved [facility] History of gastroenteritis History of gastroenteritis Problem Resolved [facility] History of Hematoma History of Hematoma Problem Resolved [facility] Left shoulder pain Left shoulder pain Problem Active [facility] History of Plantar fasciitis History of Plantar fasciitis Problem Re solved [facility] History of serous otitis media History of serous otitis media Probl em Resolved [facility] Rheumatoid arthritis Rheumatoid arthritis Problem Active [facility] Need for influenza vaccination Need for influenza vaccination Problem Active [facility] Essential (primary) hypertension Essential (primary) hypertensio n Problem Active [facility] Herpes zoster Herpes zoster Problem Active [facility] Sore throat Sore throat Problem Active [facility] Elevated sed rate Elevated sed rate Problem Active [facility] Post-menopausal osteoporosis Post-menopausal osteoporosis Problem Active [facility] Left knee pain Left knee pain Problem Active [facility] Soft tissue lesion of knee region Soft tissue lesion of knee reg ion Problem Active [facility] Tear of cartilage of left knee Tear of cartilage of left knee Problem Active [facility] Munroe cyst, left Munroe cyst, left Problem Active [facility] Localized osteoarthrosis of left hip Localized osteoarthrosi s of left hip Problem Active [facility] Lower extremity edema Lower extremity edema Problem Active [facility] Acute bronchitis Acute bronchitis Problem Active [facility] Motion sickness Motion sickness Problem Active [facility] Impaired fasting glucose Impaired fasting glucose Problem Active [facility] Allergic reaction to drug Allergic reaction to drug Problem Active [facility] Dermatitis Dermatitis [facility] Encounter for hepatitis C virus screening test for hig h risk patient Encounter for hepatitis C virus screening test for high risk patient Problem Active [facility] Fatigue Fatigue Problem Active [facility] Pressure in chest Pressure in chest Problem Active [facility] Unstable angina Unstable angina Problem Active [facility] Acute streptococcal pharyngitis Acute streptococcal pharyngitis Pro blem Active [facility] Acute UTI Acute UTI Problem Active [facility] Skin candidiasis Skin candidiasis Problem Active [facility] Allergic rhinitis Allergic rhinitis Problem Active [facility] Hypokalemia Hypokalemia Problem Active [facility] At moderate risk for fall At moderate risk for fall Problem Active [facility] Medicare annual wellness visit, subsequent Medicare an nual wellness visit, subsequent Problem Active [facility] Acute frontal sinusitis Acute frontal sinusitis Problem Active [facility] Breast cancer screening Breast cancer screening Problem Active [facility] Post-menopausal Post-menopausal Problem Active [facility] Osteoporosis screening Osteoporosis screening Problem Active [facility] Abnormal glucose measurement Abnormal glucose measurement Problem Active [facility] Cellulitis of left lower extremity Cellulitis of left lower extr emity Problem Active [facility] Hematuria Hematuria Problem Active [facility] Acute otitis media Acute otitis media Problem Active [facility] Acute bronchitis, viral Acute bronchitis, viral Problem Active [facility] Left leg pain Left leg pain Problem Active [facility] Stasis edema of left lower extremity Stasis edema of left lo wer extremity Problem Active [facility] Otitis, serous Otitis, serous Problem Active [facility] Depression screening negative Depression screening negative Problem Active [facility] Chronic venous insufficiency Chronic venous insufficiency Problem Active [facility] Edema Edema Problem Active [facility] High triglycerides High triglycerides Problem Active [facility] Hypothyroidism Hypothyroidism Problem Active [facility] Adult BMI 40.0-44.9 kg/sq m Adult BMI 40.0-44.9 kg/sq m Problem Active [facility] Prediabetes Prediabetes Problem Active [facility] Hyperlipidemia Hyperlipidemia Problem Active [facility] Mitral and aortic regurgitation Mitral and aortic regurgitation Pro blem Active [facility] Asymmetric SNHL (sensorineural hearing loss) Asymmetri c SNHL (sensorineural hearing loss) Problem Active [facility] Bilateral hearing loss Bilateral hearing loss Problem Active [facility] Otalgia of both ears Otalgia of both ears Problem Active [facility] Urinary incontinence Urinary incontinence Problem Active [facility] Advance directive discussed with patient Advance direc tive discussed with patient Problem Active [facility] At risk for change in mental status At risk for change in mental status Problem Active [facility] Arthritis of knee, right Arthritis of knee, right Problem Active [facility] Right knee pain Right knee pain Problem Active [facility] Vitamin D deficiency Vitamin D deficiency Problem Active [facility] Dizziness Dizziness Problem Active [facility] Atrophic vaginitis Atrophic vaginitis Problem Active [facility] Fall in home, sequela Fall in home, sequela Problem Active [facility] Thumb pain, left Thumb pain, left Problem Active [facility] Left renal mass Left renal mass Problem Active [facility] Lymphedema Lymphedema Problem Active [facility] Rheumatoid Arthritis Rheu matoid Arthritis Active 08/26/2013 [place] [facility] Problem Active 2013-08-26 16:36:39 Nkechi Dickson Hypertension Hype rtension Active 08/26/2013 [place] [facility] Problem Active 2013-08-26 16:36:39 Chi Dickson Acute Conjunctivitis Acut e Conjunctivitis Active 08/26/2013 [place] [facility] Problem Active 2013-08-26 16:36:39 Nkechi Dickson Periorbital Cellulitis Maria Antonia orbital Cellulitis Active 08/26/2013 [place] [facility] Problem Active 2013-08-26 16:36:39 Nkechi Dickson Acute Upper Respiratory Infection Acute Upper Respiratory Infection Active 08/26/2013 [place] [facility] Problem Active 2013-08-26 16:36:39 Nkechi Dickson Cellulitis Cell ulitis Active 08/26/2013 [place] [facility] Problem Active 2013-08-26 16:36:39 Nkechi Dickson Hypothyroidism Hypo thyroidism Active 08/26/2013 [place] [facility] Problem Active 2013-08-26 16:36:39 M chikis Dickson Allergies, Adverse Reactions, Alerts Allergy Name Allergy Type Status Severity Reaction(s) Onset Date Inacti ve Date Treating Clinician Comments Source Bactrim DS TABS Allergy to drug (finding) Active [facility] Cephalexin Monohydrate TABS Allergy to drug (finding) Active [facility] Cephalosporins Allergy to drug (finding) Inactive [facility] clindamycin Allergy to drug (finding) Inactive [facility] Almonds Allergy to substance (finding) Active [facility] Animal dander - Cats Allergy to substance (finding) Active [facility] No Known Drug Allergies No Known Drug Allergies Active [facility] [place] Family History Family Member Diagnosis Comments Start Date Stop Date Source Mother Family history of congestive heart failure [facility] Mother Family history of Hypertension [facility] Father Family history of Hypertension [facility] Father Family history of Coronary artery disease [facility] Brother Family history of hypertension [facility] Social History Social Habit Start Date Stop Date Quantity Comments Source Social History 2013-08-26 16:36:39 2013-08-26 16:36:39 Nkechi Dickson Smoking Status Start Date Stop Date Source Never smoked tobacco (finding) [facility] Medications Ordered Medication Name Filled Medication Name Start Date Stop Da te Current Medication? Ordering Clinician Indication Dosage Frequency Signature (SIG) Comments Components Source Amoxicillin-Pot Clavulanate 875-125 MG Oral Tablet [place] xicillin-Pot Clavulanate 875-125 MG Oral Tablet 2019-12-04 00:00:00 Yes MEMO WILSON P.A. Q12H TAKE 1 TABLET EVERY 12 HOURS DAILY. [facility] Aspirin Low Dose 81 MG Oral Tablet Delayed Release Asp irin Low Dose 81 MG Oral Tablet Delayed Release 2018-07-10 00:00:00 Yes MARIAH ESTEBAN M.D. 1 QD TAKE 1 TABLET EVERY OTHER DAY [facility] Pravastatin Sodium 40 MG Oral Tablet Pravastatin Sodium 40 M G Oral Tablet 2018-02-28 00:00:00 Yes MEMO KATIE P.A. QD TAKE 1 TABLET Daily NEEDS OFFICE VISIT [facility] Betamethasone Dipropionate Aug 0.05 % External Ointmen t Betamethasone Dipropionate Aug 0.05 % External Ointment 2018-02-25 00:00:00 Ye s MEMO KATIE P.A. Q0.5D APPLY SPARINGLY TO AFFECTED AREA(S) TWIC E DAILY [facility] Fluticasone Propionate 50 MCG/ACT Nasal Suspension Flu ticasone Propionate 50 MCG/ACT Nasal Suspension 2017-10-25 15:58:00 Yes MEMO KATIE P.A. USE 1 SPRAY IN EACH NOSTRIL TWICE A DAY [facility] Olmesartan Medoxomil 40 MG Oral Tablet Olmesartan Medoxomil 40 MG Oral Tablet 2016-10-15 00:00:00 Yes MEMO KATIE P.A. 1 QD TAKE 1 TABLET DAILY. [facility] Levothyroxine Sodium 88 MCG Oral Tablet Levothyroxine Sodium 88 MCG Oral Tablet 2015-03-18 00:00:00 Yes MEMO KATIE P.A. TAKE ONE TABLET BY MOUTH EVERY DAY DIRECTED [facility] amLODIPine Besylate 5 MG Oral Tablet amLODIPine Besylate 5 M G Oral Tablet 2015-01-12 00:00:00 Yes MARIAH MARIA M.D. QD TAKE 1 TABLET BY MOUTH DAILY [facility] Atenolol 50 MG Oral Tablet Atenolol 50 MG Oral Tablet 2014-07-21 00:0 0:00 Yes MEMO KATIE P.A. Q0.5D TAKE 1 TABLET TWICE DAILY. [facility] Doxazosin Mesylate 4 MG Oral Tablet Doxazosin Mesylate 4 MG Oral Tablet 2014-01-28 00:00:00 Yes MEMO KATIE P.A. 1 QD TAKE 1 TABLET DAILY DIRECTED [facility] Ventolin HFA 108 (90 Base) MCG/ACT Inhalation Aerosol Solution Ventolin HFA 108 (90 Base) MCG/ACT Inhalation Aerosol Solution 2013-09-29 00:00:00 Yes MEMO KATIE P.A. 2 INHALE 2 PUFFS EVERY 4 HOURS NEEDED [facility] Doxazosin Mesylate 2 MG Oral [...] Yes 1 TAKE 1 TABLET DAILY NEEDED. [facility] Tylenol CAPS Tylenol CAPS Yes PRN [facility] Refresh SOLN Refresh SOLN Yes [facility] Immunizations Ordered Immunization Name Filled Immunization Name Date Status Comments Source Fluzone High-Dose 0.5 ML Intramuscular Suspension Prefilled Syringe 2019-05-08 00:00:00 Completed [facility] Fluzone High-Dose 0.5 ML Intramuscular Suspension Prefilled Syringe 2018-04-29 13:13:00 Completed [facility] Fluzone Quadrivalent 0.5 ML Intramuscular Suspension 2017-04-24 14:47:00 Completed [facility] Prevnar 13 Intramuscular Suspension 2016-08-06 15:34:00 Co mpleted [facility] Prevnar 13 Intramuscular Suspension 2016-08-06 09:16:00 Co mpleted [facility] Fluzone Quadrivalent 0.5 ML Intramuscular Suspension Prefill ed Syringe 2016-05-02 11:26:00 Completed [facility] Pneumococcal polysaccharide vaccine, 23 valent 2014-08 16:09:00 Completed [facility] Influenza 2014-05-19 16:30:00 Completed [facility] Vital Signs Vital Name Observation Time Observation Value Comments Source Systolic blood pressure 2019-12-04 14:13:00 147 mm[Hg] Loca tion: LUE; Position: Sitting [facility] Diastolic blood pressure 2019-12-04 14:13:00 71 mm[Hg] Loc ation: LUE; Position: Sitting [facility] Body height 2019-12-04 14:13:00 63 [in_us] [facility] Weight 2019-12-04 14:13:00 227.00 [lb_av] [facility] Body mass index (BMI) [Ratio] 2019-12-04 14:13:00 40.21 kg/m2 [facility] Body temperature 2019-12-04 14:13:00 98.5 [degF] Method: Temporal [facility] Heart Rate 2019-12-04 14:13:00 64 /min [facility] Respiratory rate 2019-12-04 14:13:00 16 /min [facility] Systolic blood pressure 2019-09-07 13:30:00 119 mm[Hg] Loca tion: LUE; Position: Sitting [facility] Diastolic blood pressure 2019-09-07 13:30:00 72 mm[Hg] Loc ation: LUE; Position: Sitting [facility] Body height 2019-09-07 13:30:00 63 [in_us] [facility] Weight 2019-09-07 13:30:00 232.5 [lb_av] [facility] Body mass index (BMI) [Ratio] 2019-09-07 13:30:00 41.19 kg/m2 [facility] Body temperature 2019-09-07 13:30:00 97.9 [degF] Method: [facility] Respiratory rate 2019-09-07 13:30:00 16 /min [facility] Heart Rate 2019-09-07 13:30:00 66 /min [facility] Systolic blood pressure 2019-08-03 13:25:00 117 mm[Hg] Loca tion: LUE; Position: Sitting [facility] Diastolic blood pressure 2019-08-03 13:25:00 70 mm[Hg] Loc ation: LUE; Position: Sitting [facility] Body height 2019-08-03 13:25:00 63 [in_us] [facility] Weight 2019-08-03 13:25:00 236 [lb_av] [facility] Body mass index (BMI) [Ratio] 2019-08-03 13:25:00 41.81 kg/m2 [facility] Body temperature 2019-08-03 13:25:00 97.9 [degF] Method: Temporal [facility] Heart Rate 2019-08-03 13:25:00 63 /min [facility] Respiratory rate 2019-08-03 13:25:00 16 /min [facility] BP Systolic 2019-04-28 12:53:00 132 mm[Hg] Location: RUE; Positi on: Sitting [facility] BP Diastolic 2019-04-28 12:53:00 79 mm[Hg] Location: RUE; Positi on: Sitting [facility] Heart Rate 2019-04-28 12:53:00 61 /min Location: R Radial; Q uality: Normal [facility] BP Systolic 2019-04-28 12:52:00 151 mm[Hg] Location: RUE; Positi on: Sitting [facility] BP Diastolic 2019-04-28 12:52:00 76 mm[Hg] Location: RUE; Positi on: Sitting [facility] Heart Rate 2019-04-28 12:52:00 69 /min Location: R Radial; Q uality: Normal [facility] Height 2019-04-28 12:52:00 63 [in_us] [facility] Weight 2019-04-28 12:52:00 241 [lb_av] [facility] Body Mass Index Calculated 2019-04-28 12:52:00 42.69 kg/m2 [facility] BP Systolic 2019-02-17 12:59:00 121 mm[Hg] Location: LUE; Positi on: Sitting [facility] BP Diastolic 2019-02-17 12:59:00 70 mm[Hg] Location: LUE; Positi on: Sitting [facility] Height 2019-02-17 12:59:00 63 [in_us] [facility] Weight 2019-02-17 12:59:00 239.3125 [lb_av] [facility] Body Mass Index Calculated 2019-02-17 12:59:00 42.39 kg/m2 [facility] Temperature 2019-02-17 12:59:00 98.6 [degF] Method: Temporal [facility] Respiration Rate 2019-02-17 12:59:00 16 /min [facility] Heart Rate 2019-02-17 12:59:00 69 /min [facility] O2 SAT 2019-02-17 12:59:00 95 % [facility] BP Systolic 2018-11-27 13:52:00 136 mm[Hg] Location: LUE; Positi on: Sitting [facility] BP Diastolic 2018-11-27 13:52:00 79 mm[Hg] Location: LUE; Positi on: Sitting [facility] Height 2018-11-27 13:52:00 63 [in_us] [facility] Weight 2018-11-27 13:52:00 234.1875 [lb_av] [facility] Body Mass Index Calculated 2018-11-27 13:52:00 41.48 kg/m2 [facility] Heart Rate 2018-11-27 13:52:00 78 /min [facility] Respiration Rate 2018-11-27 13:52:00 16 /min [facility] BP Systolic 2018-11-13 13:24:00 130 mm[Hg] Location: LUE; Positi on: Sitting [facility] BP Diastolic 2018-11-13 13:24:00 77 mm[Hg] Location: LUE; Positi on: Sitting [facility] Height 2018-11-13 13:24:00 63 [in_us] [facility] Weight 2018-11-13 13:24:00 236 [lb_av] [facility] Body Mass Index Calculated 2018-11-13 13:24:00 41.81 kg/m2 [facility] Heart Rate 2018-11-13 13:24:00 65 /min [facility] Respiration Rate 2018-11-13 13:24:00 16 /min [facility] BP Systolic 2018-11-03 11:16:00 130 mm[Hg] Location: LUE; Positi on: Standing [facility] BP Diastolic 2018-11-03 11:16:00 72 mm[Hg] Location: LUE; Positi on: Standing [facility] BP Systolic 2018-11-03 11:15:00 129 mm[Hg] Location: LUE; Positi on: Sitting [facility] BP Diastolic 2018-11-03 11:15:00 71 mm[Hg] Location: LUE; Positi on: Sitting [facility] BP Systolic 2018-11-03 11:14:00 127 mm[Hg] Location: LUE; Positi on: Supine [facility] BP Diastolic 2018-11-03 11:14:00 66 mm[Hg] Location: LUE; Positi on: Supine [facility] Heart Rate 2018-11-03 11:14:00 73 /min [facility] BP Systolic 2018-11-03 11:12:00 150 mm[Hg] Location: LUE; Positi on: Sitting [facility] BP Diastolic 2018-11-03 11:12:00 75 mm[Hg] Location: LUE; Positi on: Sitting [facility] Heart Rate 2018-11-03 11:12:00 66 /min [facility] Height 2018-11-03 11:12:00 63 [in_us] [facility] Weight 2018-11-03 11:12:00 240 [lb_av] [facility] Body Mass Index Calculated 2018-11-03 11:12:00 42.51 kg/m2 [facility] Temperature 2018-11-03 11:12:00 97.8 [degF] Method: Temporal [facility] Respiration Rate 2018-11-03 11:12:00 16 /min [facility] BP Systolic 2018-08-12 15:20:00 135 mm[Hg] Location: LUE; Positi on: Sitting [facility] BP Diastolic 2018-08-12 15:20:00 78 mm[Hg] Location: LUE; Positi on: Sitting [facility] Temperature 2018-08-12 15:20:00 99.2 [degF] Method: Temporal [facility] Respiration Rate 2018-08-12 15:20:00 16 /min [facility] Heart Rate 2018-08-12 15:20:00 60 /min [facility] Height 2018-08-12 15:19:00 63 [in_us] [facility] Weight 2018-08-12 15:19:00 236 [lb_av] [facility] Body Mass Index Calculated 2018-08-12 15:19:00 41.81 kg/m2 [facility] BP Systolic 2018-06-02 08:18:00 124 mm[Hg] Location: LUE; Positi on: Sitting [facility] BP Diastolic 2018-06-02 08:18:00 73 mm[Hg] Location: LUE; Positi on: Sitting [facility] Height 2018-06-02 08:18:00 63 [in_us] [facility] Weight 2018-06-02 08:18:00 235 [lb_av] [facility] Body Mass Index Calculated 2018-06-02 08:18:00 41.63 kg/m2 [facility] Temperature 2018-06-02 08:18:00 97.9 [degF] Method: Temporal [facility] Respiration Rate 2018-06-02 08:18:00 16 /min [facility] Heart Rate 2018-06-02 08:18:00 74 /min [facility] BP Systolic 2018-04-30 13:42:00 159 mm[Hg] Location: RLE; Positi on: Sitting [facility] BP Diastolic 2018-04-30 13:42:00 77 mm[Hg] Location: RLE; Positi on: Sitting [facility] Height 2018-04-30 13:42:00 63 [in_us] [facility] Weight 2018-04-30 13:42:00 236.5 [lb_av] [facility] Body Mass Index Calculated 2018-04-30 13:42:00 41.89 kg/m2 [facility] Temperature 2018-04-30 13:42:00 98.2 [degF] Method: [facility] Heart Rate 2018-04-30 13:42:00 69 /min [facility] Respiration Rate 2018-04-30 13:42:00 16 /min [facility] BP Systolic 2018-04-29 10:57:00 117 mm[Hg] Location: LUE; Positi on: Sitting [facility] BP Diastolic 2018-04-29 10:57:00 69 mm[Hg] Location: LUE; Positi on: Sitting [facility] Height 2018-04-29 10:57:00 63 [in_us] [facility] Weight 2018-04-29 10:57:00 235 [lb_av] [facility] Body Mass Index Calculated 2018-04-29 10:57:00 41.63 kg/m2 [facility] Temperature 2018-04-29 10:57:00 97.4 [degF] Method: [facility]poral [facility] Heart Rate 2018-04-29 10:57:00 78 /min [facility] Respiration Rate 2018-04-29 10:57:00 16 /min [facility] BP Systolic 2018-02-25 14:12:00 129 mm[Hg] Location: ARLIN; Positi on: Sitting [facility] BP Diastolic 2018-02-25 14:12:00 75 mm[Hg] Location: ARLIN; Positi on: Sitting [facility] Height 2018-02-25 14:12:00 63 [in_us] [facility]i [facility] Weight 2018-02-25 14:12:00 226.375 [lb_av] [facility] Body Mass Index Calculated 2018-02-25 14:12:00 40.1 kg/m2 [facility] Temperature 2018-02-25 14:12:00 97.9 [degF] Method: Temporal [facility] Heart Rate 2018-02-25 14:12:00 69 /min [facility] Respiration Rate 2018-02-25 14:12:00 16 /min [facility] BP Systolic 2017-10-23 13:20:00 114 mm[Hg] Location: ARLIN; Positi on: Sitting [facility] BP Diastolic 2017-10-23 13:20:00 68 mm[Hg] Location: ARLIN; Positi on: Sitting [facility] Height 2017-10-23 13:20:00 63 [in_us] [facility] Weight 2017-10-23 13:20:00 240.25 [lb_av] [facility] Body Mass Index Calculated 2017-10-23 13:20:00 42.56 kg/m2 [facility] Temperature 2017-10-23 13:20:00 97.5 [degF] Method: Temporal [facility] Heart Rate 2017-10-23 13:20:00 77 /min [facility] Respiration Rate 2017-10-23 13:20:00 16 /min [facility] O2 SAT 2017-10-23 13:20:00 97 % [facility] BP Systolic 2017-08-08 11:10:00 122 mm[Hg] Location: LUE; Positi on: Sitting [facility] BP Diastolic 2017-08-08 11:10:00 73 mm[Hg] Location: LUE; Positi on: Sitting [facility] Height 2017-08-08 11:10:00 63 [in_us] [facility] Weight 2017-08-08 11:10:00 242.5 [lb_av] [facility] Body Mass Index Calculated 2017-08-08 11:10:00 42.96 kg/m2 [facility] Temperature 2017-08-08 11:10:00 98.1 [degF] Method: Temporal [facility] Heart Rate 2017-08-08 11:10:00 69 /min [facility] Respiration Rate 2017-08-08 11:10:00 16 /min [facility] O2 SAT 2017-08-08 11:10:00 97 % [facility] BP Systolic 2017-05-08 13:59:00 128 mm[Hg] Location: LUE; Positi on: Sitting [facility] BP Diastolic 2017-05-08 13:59:00 56 mm[Hg] Location: LUE; Positi on: Sitting [facility] Height 2017-05-08 13:59:00 63 [in_us] [facility] Weight 2017-05-08 13:59:00 240.375 [lb_av] [facility] Body Mass Index Calculated 2017-05-08 13:59:00 42.58 kg/m2 [facility] Heart Rate 2017-05-08 13:59:00 70 /min Location: L Radial; Q uality: Normal [facility] Procedures Procedure Date / Time Performed Performing Clinician Sour e [QL] CULTURE, URINE, ROUTINE 2019-12-04 00:00:00 [facility] [N] 2D Echo complete, with Doppler [id number] 2019-10-30 00:00:00 [facility] CVRAD - Lower Venous Comp - [id number] 2019-06-12 00:00:00 [facility] [[facility]] CBC (INCLUDES DIFF/PLT) 2019-02-17 00:00:00 [facility] [QLH] CMP W/EGFR 2019-02-17 00:00:00 [facility] [QH] LIPID PANEL WITH REFLEX TO DIRECT LDL 2019-02-17 00:00:00 [facility] [QLH] TSH, 3RD GENERATION W/REFLEX TO FT4 2019-02-17 00:00:00 [facility] [QL] HEMOGLOBIN A1c 2019-02-17 00:00:00 [facility] [QLH] VITAMIN D, 25-HYDROXY, LC/MS/MS 2019-02-17 00:00:00 [facility] MRI Internal Auditory Canal w/wo contrast [id number] 2018-11-27 00:00 :00 [facility] [O] Basic Audiometry Screen 2018-11-13 00:00:00 [facility] [QL] CBC (INCLUDES DIFF/PLT) 2018-06-02 00:00:00 [facility] [QLH] CMP W/EGFR 2018-06-02 00:00:00 [facility] [Q] LIPID PANEL WITH REFLEX TO DIRECT LDL 2018-06-02 00:00:00 [facility] [QLH] TSH, 3RD GENERATION W/REFLEX TO FT4 2018-06-02 00:00:00 [facility] [QL] HEMOGLOBIN A1c 2018-06-02 00:00:00 [facility] [QL] VITAMIN D, 25-HYDROXY, LC/MS/MS 2018-06-02 00:00:00 [facility] [N] 2D Echo complete, with Doppler [id number] 2018-04-30 00:00:00 [facility] XRAY Knee 3 views [id number] 2018-04-29 00:00:00 [facility] [QLH] CBC (INCLUDES DIFF/PLT) 2018-02-25 00:00:00 [facility] [QLH] CMP W/EGFR 2018-02-25 00:00:00 [facility] [QH] LIPID PANEL WITH REFLEX TO DIRECT LDL 2018-02-25 00:00:00 [facility] [QLH] TSH, 3RD GENERATION W/REFLEX TO FT4 2018-02-25 00:00:00 [facility] [QLH] HEMOGLOBIN A1c 2018-02-25 00:00:00 [facility] [QLH] VITAMIN D, 25-HYDROXY, LC/MS/MS 2018-02-25 00:00:00 [facility] [QL] CULTURE, URINE, ROUTINE 2018-02-25 00:00:00 [facility] MA Digital Mammo Screening Joao [id number] 2018-02-25 00:00:00 [facility] FABIENNE Bone Density DXA Dual Energy 66180 2018-02-25 00:00:00 [facility] [QL] CBC (INCLUDES DIFF/PLT) 2017-04-24 00:00:00 [facility] History of Sinus Surgery [facility] History of Total Abdominal Hysterectomy With Removal Of Both Ova katherin [facility] Plan of Care Planned Activity Planned Date Details Comments Source Future Scheduled Test 2020-04-29 00:00:00 [N] 2D Echo comple te, with Doppler 17189 [code = [N] 2D Echo complete, with Doppler 98177] [facility] Future Scheduled Test 2020-03-28 00:00:00 [N] 2D Echo comple te, with Doppler 29564 [code = [N] 2D Echo complete, with Doppler 74103] [facility] Diagnostic Test Pending 2019-04-30 00:00:00 [N] 2D Echo comp lete, with Doppler 71767 [code = [N] 2D Echo complete, with Doppler 25465] [facility] Diagnostic Test Pending 2018-11-13 00:00:00 [O] Basic Audiom etry Screen [code = [O] Basic Audiometry Screen] [facility] Diagnostic Test Pending 2018-07-08 00:00:00 [QLH] CBC (INCLU SPIKE DIFF/PLT) [code = [QLH] CBC (INCLUDES DIFF/PLT)] [facility] Diagnostic Test Pending 2018-07-08 00:00:00 [QLH] CMP W/EGFR [code = [QLH] CMP W/EGFR] [facility] Diagnostic Test Pending 2018-07-08 00:00:00 [QH] LIPID PANEL WITH REFLEX TO DIRECT LDL [code = [QH] LIPID PANEL WITH REFLEX TO DIRECT LDL] [facility] Diagnostic Test Pending 2018-07-08 00:00:00 [QLH] TSH, 3RD G ENERATION W/REFLEX TO FT4 [code = [QLH] TSH, 3RD GENERATION W/REFLEX TO FT4] [facility] Diagnostic Test Pending 2018-07-08 00:00:00 [QLH] HEMOGLOBIN A1c [code = [QLH] HEMOGLOBIN A1c] [facility] Diagnostic Test Pending 2018-07-08 00:00:00 [QLH] VITAMIN D, 25-HYDROXY, LC/MS/MS [code = [QLH] VITAMIN D, 25-HYDROXY, LC/MS/MS] [facility] Future Scheduled Test 2013-05-13 22:47:29 Plan of Care [code = 1877 6-5] [facility] Future Appointment 2020-04-29 11:00:00 Christine LEMUS [facility] Future Appointment 2020-04-29 10:00:00 [facility] En[facility] Start Date/Time End Date/Time Encounter Type Admission Type [facility] Care Department Encounter ID Source 2019-12-04 14:00:00 2019-12-04 14:00:00 Appointment; MEMO WILSON P.A. CRUZ, LETICIA, P.A. [facility], [address] [id number] [facility] 2019-10-30 10:40:00 2019-10-30 10:40:00 Appointment; MARIAH FRANCIS M.D. CHARITAKIS, KONSTANTINOS, M.D. [facility], [address] [id number] [facility] 2019-09-07 13:30:00 2019-09-07 13:30:00 Appointment; MEMO WILSON P.A. CRUZ, LETICIA, P.A. [facility], [address] [id number] [facility] 2019-09-01 09:00:00 2019-09-01 09:00:00 Appointment; GREGG THORNTON M.D. MARTIN, GORDON, M.D. [facility] Thoracic Surgery - [facility] [id number] [facility] 2019-08-03 13:30:00 2019-08-03 13:30:00 Appointment; MEMO WILSON P.A. CRUZ, LETICIA, P.A. [facility] [id number] [facility] 2019-06-19 11:15:00 2019-06-19 11:15:00 Appointment; GREGG THORNTON M.D. MARTIN, GORDON, M.D. [facility] Thoracic Surgery [facility] [id number] [facility] 2019-06-12 08:00:00 2019-06-12 08:00:00 Appointment; VASCULAR, SE VASCULAR, SE [facility] Thoracic [facility] [id number] [facility] 2019-05-22 11:30:00 2019-05-22 11:30:00 Appointment; GREGG THORNTON M.D. MARTIN, GORDON, M.D. [facility] Thoracic Surgery [facility] [id number] [facility] 2019-04-28 12:00:00 2019-04-28 12:00:00 Appointment; MARIAH FRANCIS M.D. CHARITAKIS, KONSTANTINOS, M.D. [place] [address] [id number] [facility] 2019-04-28 11:00:00 2019-04-28 11:00:00 Appointment; [facility], E CHO [facility], [facility]CHO [facility] [id number] [facility] 2019-02-17 13:00:00 2019-02-17 13:00:00 Appointment; MEMO WILSON P.A. CRUZ, LETICIA, P.A. [facility] [id number] [facility] 2019-01-01 10:15:00 2019-01-01 10:15:00 Appointment; DALTON PHIPPS M.D. BYRD, MICHAEL, M.D. [facility] [id number] [facility] 2018-11-27 13:30:00 2018-11-27 13:30:00 Appointment; DALTON PHIPPS M.D. BYRD, MICHAEL, M.D. [facility] [id number] [facility] 2018-11-20 15:30:00 2018-11-20 15:30:00 Appointment; ANDREA FLORES KIMBERLY [facility] Otorhinolaryngology [facility] [id number] [facility] 2018-11-13 13:45:00 2018-11-13 13:45:00 Appointment; DALTON PHIPPS M.D. BYRD, MICHAEL, M.D. [facility] [address] [id number] [facility] 2018-11-03 10:30:00 2018-11-03 10:30:00 Appointment; CLINT GEE APRN HOANG, CHRISTINA, APRN [facility] [id number] [facility] 2018-08-12 15:00:00 2018-08-12 15:00:00 Appointment; MEMO WILSON P.A. CRUZ, LETICIA PAshkanAAshkan [facility] [id number] [facility] 2018-07-16 13:15:00 2018-07-16 13:15:00 Appointment; SCOTTY GUTIERREZ M.D. HUANG, EDDIE, M.D. [facility] [id number] [facility] 2018-06-11 13:15:00 2018-06-11 13:15:00 Appointment; SCOTTY GUTIERREZ M.D. HUANG, EDDIE, M.D. [facility] [id number] [facility] 2018-06-02 08:00:00 2018-06-02 08:00:00 Appointment; MEMO WILSON P.A. CRUZ, LETICIA, P.A. [facility] [address] [id number] [facility] 2018-04-30 13:40:00 2018-04-30 13:40:00 Appointment; MARIAH FRANCIS M.D. CHARITAKIS, KONSTANTINOS, M.D. [facility] ulti-Specialty [address] [id number] [facility] 2018-04-29 10:45:00 2018-04-29 10:45:00 Appointment; MEMO WILSON P.A. CRUZ, LETICIA P.AAshkan [facility] [id number] [facility] 2018-02-25 14:00:00 2018-02-25 14:00:00 Appointment; MEMO WILSON P.A. CRUZ, LETICIA, P.AAshkan [facility] [facility] [address] [id number] [facility] 2017-10-23 13:15:00 2017-10-23 13:15:00 Appointment; MEMO WILSON P.A. CRUZ, LETICIA P.AAshkan [facility] [facility] [address] [id number] [facility] 2017-08-08 11:00:00 2017-08-08 11:00:00 Appointment; MEMO WILSON P.A. CRUZ, LETICIA P.AAshkan [facility] [facility] [id number] [facility] 2017-05-08 13:40:00 2017-05-08 13:40:00 Appointment; MARIAH FRANCIS M.D. CHARITAKIS, KONSTANTINOS, M.D. [facility] UTP [id number] [facility] 2017-05-07 10:00:00 2017-05-07 10:00:00 Appointment; MARIAH FRANCIS M.D. CHARITAKIS, KONSTANTINOS, M.D. [facility] UTP [id number] [facility] 2017-04-24 13:45:00 2017-04-24 13:45:00 Appointment; MEMO WILSON P.A. CRUZ, LETICIA, P.AAshkan [place] UTP [id number] [facility] 2017-04-17 14:30:00 2017-04-17 14:30:00 Appointment; MEMO WILSON P.A. CRUZ, LETICIA P.A. AMAR[facility]IT UTP [id number] [facility] 2017-03-07 10:15:00 2017-03-07 10:15:00 Appointment; MEMO WILSON P.A. CRUZ, LETICIA, P.A. AM[facility] UTP [id number] [facility] 2017-02-12 15:45:00 2017-02-12 15:45:00 Appointment; MEMO WILSON P.A. CRUZ, LETICIA, P.A. AMAR[facility]IT UTP [id number] [facility] 2016-12-24 10:00:00 2016-12-24 10:00:00 Appointment; MEMO WILSON P.A. CRUZ, LETICIA, P.AAshkan UTP UTP [id number] [facility] 2016-12-12 11:00:00 2016-12-12 11:00:00 Appointment; MEMO WILSON P.A. CRUZ, LETICIA, P.AAshkan UTP UTP [id number] [facility] 2016-11-02 13:40:00 2016-11-02 13:40:00 Appointment; MARIAH FRANCIS M.D. CHARITAKIS, KONSTANTINOS, M.D. [place]TP [id number] [facility] 2016-10-17 15:40:00 2016-10-17 15:40:00 Appointment; MARIAH FRANCIS M.D. CHARITAKIS, KONSTANTINOS, M.D. U[place] UTP [id number] [facility] 2016-10-17 13:00:00 2016-10-17 13:00:00 Appointment; [place]-MS, N UCLEAR [place]-MS, NUCLEAR UTP UTP [id number] [facility] 2016-10-15 14:00:00 2016-10-15 14:00:00 Appointment; MEMO WILSON P.A. CRUZ, LETICIA PAshkanAAshkan UTP UTP [id number] [facility] 2016-10-09 10:00:00 2016-10-09 10:00:00 Appointment; MARIAH FRANCIS M.D. CHARITAKIS, KONSTANTINOS, M.D. [place] [id number] [facility] 2016-10-05 10:00:00 2016-10-05 10:00:00 Appointment; [place]-MS, E CHO [place]-[facility], ECHO UTP UTP [id number] [facility] 2016-08-06 14:45:00 2016-08-06 14:45:00 Appointment; MEMO WILSON P.A. CRUZ, LETICIA P.AAshkan UTP UTP [id number] [facility] 2016-05-09 13:00:00 2016-05-09 13:00:00 Appointment; MEMO WILSON P.A. CRUZ, LETICIA, P.AAshkan UTP UTP [id number] [facility] 2016-05-02 11:00:00 2016-05-02 11:00:00 Appointment; MEMO WILSON P.A. CRUZ, LETICIA, P.A. UTP UTP [id number] [facility] 2016-04-04 08:30:00 2016-04-04 08:30:00 Appointment; MEMO WILSON P.A. CRUZ, LETICIA, P.A. UTP UTP [id number] [facility] 2016-03-26 13:45:00 2016-03-26 13:45:00 Appointment; LIUDMILA FAGAN P.A. CAMPOS, BERTHA PAshkanAAshkan UTP UTP [id number] [facility] 2016-01-31 09:30:00 2016-01-31 09:30:00 Appointment; MEMO WILSON P.A. CRUZ, LETICIA, P.A. UTP UTP [id number] [facility] 2015-12-15 10:30:00 2015-12-15 10:30:00 Appointment; MEMO WILSON P.A. CRUZ, LETICIA, P.A. UTP UTP [id number] [facility] 2015-12-01 10:30:00 2015-12-01 10:30:00 Appointment; MEMO WILSON P.A. CRUZ, LETICIA, P.A. UTP UTP [id number] [facility] 2015-10-26 13:15:00 2015-10-26 13:15:00 Appointment; MEMO WILSON P.A. CRUZ, LETICIA, P.A. UTP UTP [id number] [facility] 2015-10-12 17:00:00 2015-10-12 17:00:00 Appointment; MARIAH FRANCIS M.D. CHARITAKIS, KONSTANTINOS, M.D. UTP UTP [id number] [facility] 2015-09-22 14:15:00 2015-09-22 14:15:00 Appointment; MEMO WISLON P.A. CRUZ, LETICIA, P.A. UTP UTP [id number] [facility] 2015-09-21 13:45:00 2015-09-21 13:45:00 Appointment; SCOTTY GUTIERREZ M.D. HUANG, EDDIE, M.D. [facility] UTP [id number] [facility] 2015-09-15 14:00:00 2015-09-15 14:00:00 Appointment; MEMO WILSON P.A. CRUZ, LETICIA P.A. UTP UTP [id number] [facility] 2015-09-08 08:00:00 2015-09-08 08:00:00 Appointment; [place]-MS, E YULIANA [place]-MS, ECHO UTP UTP [id number] [facility] 2015-09-05 13:15:00 2015-09-05 13:15:00 Appointment; MEMO WILSON P.A. CRUZ, LETICIA P.AAshkan UTP UTP [id number] [facility] 2015-08-31 09:15:00 2015-08-31 09:15:00 Appointment; MEMO WILSON P.A. CRUZ, LETICIA P.A. UTP UTP [id number] [facility] 2015-08-11 15:15:00 2015-08-11 15:15:00 Appointment; MEMO WILSON P.A. CRUZ, LETICIA P.AAshkan UTP UTP [id number] [facility] 2013-08-26 10:36:39 2013-08-26 10:36:39 Outpatient MHIE MHIE [id number] 2013-05-13 16:47:30 2013-05-13 16:47:29 Outpatient MHIE [facility]IE [id number] 2013-02-24 06:46:55 2013-02-24 06:46:35 Outpatient MHIE MHIE [id number] Results Test Description Test Time Test Comments Results Result Comments Source CHEST SINGLE (NOT PORTABLE) 2020-02-21 11:04:00 [place] [address] Patient Name: SOTO GARRETT MR #: [id number] : 1950 Age/Sex: 70/F Req #: [id number] Adm Physician: MAKAYLA VU MD Ordered by: TAYLA SIERRA DO Report #: [id number] Location: MED/SURG Room/Bed: 100 Procedure: [id number] DX/CHEST SINGLE (NOT PORTABLE) Exam Date: 02/21/20 Exam Time: 1004 REPORT STATUS: Signed EXAMINATION: CHEST SINGLE (NOT PORTABLE) INDICATION: Preoperative evaluation of the lungs. COMPARISON: None FINDINGS: TUBES and LINES: None. LUNGS: Normal lung volumes. Lungs are clear. No consolidations. There is bibasilar atelectasis. PLEURA: No pleural effusion or pneumothorax. HEART AND MEDIASTINUM: The cardiomediastinal silhouette is unremarkable. BONES AND SOFT TISSUES: No acute osseous lesion. Soft tissues are unremarkable. UPPER ABDOMEN: No free air under the diaphragm. IMPRESSION: No acute thoracic radiographic abnormality. Bibasilar atelectasis. Signed by: Lenard Luna MD on 02/21/2020 11:04 AM Dictated By: LENARD LUNA MD 110 Transcribed By: KEVIN on 02/21/20 1104 COPY TO: TAYLA SIERRA DO CT ELBOW LEFT WO 2020-02-21 10:51:00 [place] [address] Patient Name: SOTO GARRETT MR #: [id number] : 1950 Age/Sex: 70/F Req #: [id number] Adm Physician: MAKAYLA VU MD Ordered by: TAYLA SIERRA DO Report #: [id number] Location: MED/SURG Room/Bed: [facility] Procedure: [id number] CT/CT ELBOW LEFT WO Exam Date: 02/21/20 Exam Time: 1004 REPORT STATUS: Signed EXAM: CT of the elbow without contrast. INDICATION: Status post fall with elbow dislocation. COMPARISON: Plain radiographs of the elbow on 02/20/2020. TECHNIQUE: Left elbow was scanned utilizing a multidetector helical scanner from mid humerus to mid forearm without administration of IV contrast. Coronal and sagittal reformations were obtained. Routine protocol was performed. IV CONTRAST: None COMPLICATIONS: None RADIATION DOSE: Total DLP: 535.52 mGy*cm Estimated effective dose: (DLP x 0.014 x size factor) mSv CTDIvol has been reviewed. It is below the limits set by the Radiation Protocol Committee (RPC). Dose modulation, iterative reconstruction, and/or weight based adjustment of the mA/kV was utilized to reduce the radiation dose to as low as reasonably achievable. FINDINGS: BONES/JOINTS: The olecranon is not not completely imaged. There is redemonstration of comminuted olecranon fracture with anterior dislocation of the distal humerus and the radioulnar joint. There is also comminuted radial head fracture and dislocation of the radiocapitellar joint. There are multiple intra-articular osseous fragments. SOFT TISSUES: There is soft tissue swelling surrounding the fracture. IMPRESSION: Comminuted fracture dislocation of the ulnohumeral and radiocapitellar joints with multiple intraarticular loose fragments and surrounding soft tissue swelling. Signed by: Lenard Luna MD on 02/21/2020 11:04 AM Dictated By: LENARD LUNA MD 1102 Transcribed By: KEVIN on 02/21/20 1108 COPY TO: TAYLA SIERRA DO HUMERUS 2 VIEW - [facility] 2020-02-20 23:33:00 [facility] [place] [address] Patient Name: SOTO GARRETT MR #: [id number] : 1950 Age/Sex: 70/F Req #: [id number] Adm Physician: Ordered by: UZIEL MURRY MD Report #: [id number] Location: FSED Room/Bed: Procedure: HOPD/HUMERUS 2 VIEW LT - HOPD Exam Date: 02/20/20 Exam Time: 2310 REPORT STATUS: Signed HUMERUS 2 VIEW LT - HOPD - 4 views HISTORY: Pain COMPARISON: None available. IMPRESSION: No definite evidence of acute displaced fracture of the left humerus. Signed by: Dr. Matthias Petty MD on 02/20/2020 11:34 PM Dictated By: MATTHIAS PETTY MD 33 Transcribed By: KEVIN on 02/20/202333 COPY TO: UZIEL MURRY MD ELBOW 3 VIEW LT - HOPD 2020-02-20 23:31:00 [place] [address] Patient Name: SOTO GARRETT MR #: [id number] : 1950 Age/Sex: 70/F Req #: [id number] Adm Physician: Ordered by: UZIEL MURRY MD Report #: [id number] Location: FSED Room/Bed: Procedure: HOPD/ELBOW 3 VIEW LT - [...] TO: UZIEL MURRY MD FOREARM 2 VIEW [facility] 2020-02-20 23:27:00 [place] [address] Patient Name: SOTO GARRETT MR #: [id number] : 1950 Age/Sex: 70/F Req #: [id number] Adm Physician: Ordered by: UZIEL MURRY MD Report #: [id number] Location: [facility] Room/Bed: Procedure: HOPD/FOREARM 2 VIEW LT -HOPD Exam Date: 02/20/20 Exam Time: 2310 REPORT STATUS: Signed FOREARM 2 VIEW LT [...] PETTY MD 30 Transcribed By: KEVIN on 02/20/202330 COPY TO: UZIEL MURRY MD [O] Urine Dipstick (In Office) 2019-12-04 14:15:00 Test Item Glucose (test code = Glucose) normal N LEUKOCYTES (test code = LEUKOCYTES) neg N NITRITE; Normal (test code = 11025-8) neg N UROBILINOGEN; Normal (test code = 25590-1) neg N PROTEIN (test code = 45813-5) trace pH (test code = pH) 5 URINE BLOOD; Normal (test code = 26106-9) neg N SPECIFIC GRAVITY (test code = 2965-2) 1.015 KETONES; Normal (test code = 09527-4) neg N BILIRUBIN; Normal (test code = 46535-7) neg N COLOR URINE; Normal (test code = 5778-6) yellow N APPEARANCE; Normal (test code = 5767-9) clear N [facility][O] Streptococcus Test Rapid (In Office)2019-08-03 14:14:00* Test Item Value Reference Range Interpretation Comments Group A Strep Screen; Normal (test code = 78499-4) neg N [facility] [facility] [id number] 11:11:45 - SCR MAMM BILATERAL IRMA CAD DIGITALBILATERAL DIGITAL SCREENING MAMMOGRAM 3D/2D WITH CAD: 03/16/2019CLINICAL: Asymptomatic. Digital breast tomosynthesis was performed in addition to routine CC and MLO views. Current mammographic images were evaluated by either a [employer] M-Vu or a [employer] ImageChecker CAD (computer aided detection system). Comparison [...] mammography in one year. Osiris Garcia M.D. dm/leidy:03/16/2019 11:11:45 copy to: Neptali Mccurdy MD, ph: [phone], fax: [phone] Technologist: Criss Hurst FW, [facility]- FWletter sent: BIRADS 1-2 Normal Mammogram BI-RADS: 1 Negative[QH] LIPID PANEL WITH REFLEX TO DIRECT [id number] 09:47:00* Test Item Value Reference Range Interpretation Comments CHOLESTEROL, TOTAL; Normal (test code = 2093-3) 132 mg/dl <200 N HDL CHOLESTEROL; Below Low Threshold (test code = 2085-9) 48 mg/dl >50 TRIGLYCERIDES; Above High Threshold (test code = 2571-8) 163 mg/dl <150 LDL-CHOLESTEROL; Normal (test code = 07407-3) 60 {MG/DL PERRI} N Reference range: <100 Desirable range <100 mg/dL for primary prevention; <70 mg/dL for patients with CHD or diabetic patients with > or = 2 CHD risk factors. LDL-C is now calculated using the Amador-Jansen calculation, which is a validated novel method providing better accuracy than the Friedewald equation in the estimation of LDL-C. Amador SS et al. CHAPITO. 2013;310(19): 4829-9501 (http ://education.Pharmworks.com/faq/NLC904) CHOL/HDLC RATIO (test code = CHOL/HDLC RATIO) 2.8 {CALC} <5.0 N NON HDL CHOLESTEROL (test code = NON HDL CHOLESTEROL) 84 {MG/DL CA L} <130 N For patients with diabetes plus 1 major ASCVD risk factor, treating to a non-HDL-C goal of <100 mg/dL (LDL-C of <70 mg/dL) is considered a therapeutic option. [facility]] CMP [id number] 09:47:00* Test Item Value Reference Range Interpretation Comments GLUCOSE; Normal (test code = 1547-9) 88 mg/dl 65-99 N Fasting reference interval UREA NITROGEN (BUN) (test code = UREA NITROGEN (BUN)) 17 mg/dl 7-25 N CREATININE (test code = CREATININE) 0.69 mg/dl 0.60-0.93 N For patients >49 years of age, the reference limitfor Creatinine is approximately 13% higher for peopleidentified as -Bangladeshi. eGFR NON- (test code = eGFR NON-ANISHA N RUSSIAN) 88 {ML/MIN/1.7} > OR = 60 N [...] N BILIRUBIN, TOTAL; Normal (test code = 08769-4) 0.2 mg/dl 0.2-1.2 N ALKALINE PHSPHATASE (test code = ALKALINE PHSPHATASE) 71 u/l 33-130 N AST; Normal (test code = 1916-6) 15 u/l 10-35 N ALT; Normal (test code = 1742-6) 7 u/l 6-29 N [facility]] CBC (INCLUDES DIFF/PLT)2019-02-18 09:47:00* Test Item Value Reference Range Interpretation Comments WHITE BLOOD CELL COUNT (test code = WHITE BLOOD CELL COUNT) 8.9 {Thousand/u} 3.8-10.8 N RED BLOOD CELL COUNT (test code = RED BLOOD CELL COUNT) 4.06 {Million/uL} 3.80-5.10 N HEMAGLOBIN; Below Low Threshold (test code = 47172-7) 11.6 g/dl 11.7-15.5 HEMATOCRIT; Normal (test code = 4544-3) 36.7 % 35.0-45.0 N MCV; Normal (test code = 787-2) 90.4 fL 80.0-100.0 N MCHC; Below Low Threshold (test code = 94866-3) 31.6 g/dl 32.0-3 6.0 N RDW; Normal (test code = 788-0) 14.4 % 11.0-15.0 N PLATELET COUNT; Normal (test code = 777-3) 262 {Thousand/u} 140-400 N MPV; Normal (test code = 20664-3) 9.6 fL 7.5-12.5 N ABSOLUTE NEUTROPHILS (test code = ABSOLUTE NEUTROPHILS) 6052 {cells/uL} 1168-7101 N ABSOLUTE LYMPHOCYTES (test code = ABSOLUTE [...] % N MONOCYTES; Normal (test code = 43668-3) 7.8 % N EOSINOPHILS; Normal (test code = 52247-7) 2.9 % N BASOPHILS; Normal (test code = 91955-4) 0.4 % N [facility]] TSH, 3RD GENERATION W/REFLEX TO FT4 2019-02-18 09:47:00* Test Item Value Reference Range Interpretation Comments TSH, 3RD GENERATION W/REFLEX TO FT4 (rebeka t code = TSH, 3RD GENERATION W/REFLEX TO FT4) 3.92 {MIU/L} 0.40-4.50 N [facility]] VITAMIN D, 25-HYDROXY, LC/MS/[id number] 09:47:00* Test Item Value Reference Range Interpretation [...] D, (D2,D3), LC/MS/MS is recommended: order code 79563 (patients >2yrs). For more information on this test, go to:http://education.[employer]/faq/HAD378(This link is being provided for informational/educational purposes only.) [facility]] HEMOGLOBIN [id number] 09:47:00* Test Item Value Reference Range Interpretation Comments HEMOGLOBIN A1c; Above High Threshold (test code = 4548-4) 5.7 {% of total} <5.7 For someone without known diabetes, a he moglobin A1c value between 5.7% and 6.4% is consistent withprediabetes and should be confirmed with a follow-up test. For someone with known diabetes, a value <7%indicates that their diabetes is well controlled. [id number] should be individualized based on duration ofdiabetes, age, comorbid conditions, and otherconsiderations. This assay result is consistent with an increased riskof diabetes. Currently, no consensus exists regarding use ofhemoglobin A1c for diagnosis of diabetes for children. [facility][O] Urine Dipstick (In Office)2018-08-12 15:25:00 * Test Item Value Reference Range Interpretation Comments Glucose (test code = Glucose) neg N LEUKOCYTES (test code = LEUKOCYTES) + NITRITE; Normal (test code = 35004-9) neg N UROBILINOGEN; Normal (test code = 67347-5) neg N PROTEIN (test code = 10692-0) trace pH (test code = pH) 5 URINE BLOOD (test code = 62817-7) trace SPECIFIC GRAVITY (test code = 2965-2) 1.015 KETONES; Normal (test code = 73684-3) neg N BILIRUBIN; Normal (test code = 90743-8) neg N COLOR URINE; Normal (test code = 5778-6) yellow N APPEARANCE; Normal (test code = 5767-9) clear N [facility][] LIPID PANEL WITH REFLEX TO DIRECT LDL 2018-07-10 10:20:00* Test Item Value Reference Range Interpretation Comments CHOLESTEROL, TOTAL; Normal (test code = 2093-3) 152 mg/dl <200 N HDL CHOLESTEROL; Normal (test code = 2085-9) 57 mg/dl >50 N TRIGLYCERIDES; Normal (test code = 2571-8) 146 mg/dl <150 N LDL-CHOLESTEROL; Normal (test code = 36306-1) 72 {MG/DL PERRI} N Reference range: <100 Desirable range <100 mg/dL for primary prevention; <70 mg/dL for patients with CHD or diabetic patients with > or = 2 CHD risk factors. LDL-C is now calculated using the Amador-Justyna calculation, which is a validated novel method providing better accuracy than the Friedewald equation in the estimation of LDL-C. Amador SS et al. CHAPITO. 2013;310(19): 7480-3403 (http ://education.Pharmworks.LumiGrow/faq/WSI220) CHOL/HDLC RATIO (test code = CHOL/HDLC RATIO) 2.7 {CALC} <5.0 N NON HDL CHOLESTEROL (test code = NON HDL CHOLESTEROL) 95 {MG/DL CA L} <130 N For patients with diabetes plus 1 major ASCVD risk factor, treating to a non-HDL-C goal of <100 mg/dL (LDL-C of <70 mg/dL) is considered a therapeutic option. [facility]] CMP [id number] 10:20:00* Test Item Value Reference Range Interpretation Comments GLUCOSE; Normal (test code = 1547-9) 95 mg/dl 65-99 N Fasting reference interval UREA NITROGEN (BUN) (test code = UREA NITROGEN (BUN)) 18 mg/dl 7-25 N CREATININE (test code = CREATININE) 0.65 mg/dl 0.50-0.99 N For patients >49 years of age, the reference limitfor Creatinine is approximately 13% higher for peopleidentified as -Bangladeshi. eGFR NON- (test code = eGFR NON-ANISHA N RUSSIAN) 91 {ML/MIN/1.7} > OR = 60 N [...] N BILIRUBIN, TOTAL; Normal (test code = 23203-9) 0.3 mg/dl 0.2-1.2 N ALKALINE PHSPHATASE (test code = ALKALINE PHSPHATASE) 71 u/l 33-130 N AST; Normal (test code = 1916-6) 13 u/l 10-35 N ALT; Normal (test code = 1742-6) 7 u/l 6-29 N [facility]] CBC (INCLUDES DIFF/PLT)2018-07-10 10:20:00* Test Item Value Reference Range Interpretation Comments WHITE BLOOD CELL COUNT (test code = WHITE BLOOD CELL COUNT) 7.7 {Thousand/u} 3.8-10.8 N RED BLOOD CELL COUNT (test code = RED BLOOD CELL COUNT) 3.98 {Million/uL} 3.80-5.10 N HEMAGLOBIN; Below Low Threshold (test code = 59199-2) 11.6 g/dl 11.7-15.5 HEMATOCRIT; Normal (test code = 4544-3) 35.3 % 35.0-45.0 N MCV; Normal (test code = 787-2) 88.7 fL 80.0-100.0 N MCHC; Normal (test code = 74240-5) 32.9 g/dl 32.0-36.0 N RDW; Normal (test code = 788-0) 13.5 % 11.0-15.0 N PLATELET COUNT; Normal (test code = 777-3) 292 {Thousand/u} 140-400 N MPV; Normal (test code = 27529-1) 9.9 fL 7.5-12.5 N ABSOLUTE NEUTROPHILS (test code = ABSOLUTE NEUTROPHILS) 5082 {cells/uL} 6083-0533 N ABSOLUTE LYMPHOCYTES (test code = ABSOLUTE [...] % N MONOCYTES; Normal (test code = 49068-0) 7.0 % N EOSINOPHILS; Normal (test code = 73261-8) 3.9 % N BASOPHILS; Normal (test code = 23410-7) 0.4 % N [facility]] TSH, 3RD GENERATION W/REFLEX TO FT4 2018-07-10 10:20:00* Test Item Value Reference Range Interpretation Comments TSH, 3RD GENERATION W/REFLEX TO FT4 (rebeka t code = TSH, 3RD GENERATION W/REFLEX TO FT4) 2.92 {MIU/L} 0.40-4.50 N [facility]] VITAMIN D, 25-HYDROXY, LC/MS/[id number] 10:20:00* Test Item Value Reference Range Interpretation [...] D, (D2,D3), LC/MS/MS is recommended: order code 35711 (patients >2yrs). For more information on this test, go to:http://education.[employer]/faq/PRO569(This link is being provided for informational/educational purposes only.) [facility]] HEMOGLOBIN [id number] 10:20:00* Test Item Value Reference Range Interpretation [...] diagnosis of diabetes in children. According to [place] Diabetes Association (ADA)guidelines, hemoglobin A1c <7.0% represents optimalcontrol in non- diabetic patients. Differentmetrics may apply to specific patient populations. Standards of Medical Care in Diabetes(ADA). [facility] K[facility] series [id number] 11:47:00EXAM: XR RIGHT KNEE 3 VIEWSDATE: 04/29/2018 [...] osseous abnormality.--This report was dictated by a President Ceo & Founder/Fellow. I have personallyreviewed the images aswell as the Resident's interpretation and agree with the findings.Read by: Wanda Barrett MD Resident: Wanda BarrettMDDictated Date/time: 04/29/18 13:31E lectronically Signed by: Chetan Sidhu MD 04/29/1818:3 2FINAL REPORTUnSteward [facility][] LIPID PANEL WITH REFLEX TO DIRECT [id number] 08:59:00* Test Item Value Reference Range Interpretation Comments CHOLESTEROL, TOTAL; Normal (test code = 2093-3) 164 mg/dl <200 N HDL CHOLESTEROL; Normal (test code = 2085-9) 51 mg/dl >50 N TRIGLYCERIDES; Above High Threshold (test code = 2571-8) 169 mg/dl <150 LDL-CHOLESTEROL; Normal (test code = 72030-5) 86 {MG/DL PERRI} N Reference range: <100 Desirable range <100 mg/dL for primary prevention; <70 mg/dL for patients with CHD or diabetic patients with > or = 2 CHD risk factors. LDL-C is now calculated using the Bettye calculation, which is a validated novel method providing better accuracy than the Friedewald equation in the estimation of LDL-C. Amador SS et al. CHAPITO. 2013;310(19): 1907-4085 (http ://education.[employer]/faq/FMA030) CHOL/HDLC RATIO (test code = CHOL/HDLC RATIO) 3.2 {CALC} <5.0 N NON HDL CHOLESTEROL (test code = NON HDL CHOLESTEROL) 113 {MG/DL C AL} <130 N For patients with diabetes plus 1 major ASCVD risk factor, treating to a non-HDL-C goal of <100 mg/dL (LDL-C of <70 mg/dL) is considered a therapeutic option. [facility]] CMP [id number] 08:59:00* Test Item Value Reference Range Interpretation Comments GLUCOSE; Normal (test code = 1547-9) 87 mg/dl 65-99 N Fasting reference interval UREA NITROGEN (BUN) (test code = UREA NITROGEN (BUN)) 14 mg/dl 7-25 N CREATININE (test code = CREATININE) 0.67 mg/dl 0.50-0.99 N For patients >49 years of age, the reference limitfor Creatinine is approximately 13% higher for peopleidentified as -Bangladeshi. eGFR NON- (test code = eGFR NON-ANISHA N RUSSIAN) 90 {ML/MIN/1.7} > OR = 60 N [...] N BILIRUBIN, TOTAL; Normal (test code = 50382-7) 0.3 mg/dl 0.2-1.2 N ALKALINE PHSPHATASE (test code = ALKALINE PHSPHATASE) 77 u/l 33-130 N AST; Normal (test code = 1916-6) 16 u/l 10-35 N ALT; Normal (test code = 1742-6) 9 u/l 6-29 N [facility]] CBC (INCLUDES DIFF/PLT)2018-02-27 08:59:00* Test Item Value Reference Range Interpretation Comments WHITE BLOOD CELL COUNT (test code = WHITE BLOOD CELL COUNT) 8.8 {Thousand/u} 3.8-10.8 N RED BLOOD CELL COUNT (test code = RED BLOOD CELL COUNT) 4.23 {Million/uL} 3.80-5.10 N HEMAGLOBIN; Normal (test code = 08738-7) 12.2 g/dl 11.7-15.5 N HEMATOCRIT; Normal (test code = 4544-3) 37.0 % 35.0-45.0 N MCV; Normal (test code = 787-2) 87.5 fL 80.0-100.0 N MCHC; Normal (test code = 12506-4) 33.0 g/dl 32.0-36.0 N RDW; Normal (test code = 788-0) 13.7 % 11.0-15.0 N PLATELET COUNT; Normal (test code = 777-3) 281 {Thousand/u} 140-400 N MPV; Normal (test code = 09492-8) 9.8 fL 7.5-12.5 N ABSOLUTE NEUTROPHILS (test code = ABSOLUTE NEUTROPHILS) 5509 {cells/uL} 5812-8114 N ABSOLUTE LYMPHOCYTES (test code = ABSOLUTE [...] % N MONOCYTES; Normal (test code = 45491-8) 6.9 % N EOSINOPHILS; Normal (test code = 54982-3) 3.3 % N BASOPHILS; Normal (test code = 90180-4) 0.5 % N [facility]] TSH, 3RD GENERATION W/REFLEX TO FT4 2018-02-27 08:59:00* Test Item Value Reference Range Interpretation Comments TSH, 3RD GENERATION W/REFLEX TO FT4 (rebeka t code = TSH, 3RD GENERATION W/REFLEX TO FT4) 3.32 {MIU/L} 0.40-4.50 N [facility]] VITAMIN D, 25-HYDROXY, LC/MS/[id number] 08:59:00* Test Item Value Reference Range Interpretation [...] D, (D2,D3), LC/MS/MS is recommended: order code 69824 (patients >2yrs). For more information on this test, go to:http://education.Hochy eto.LumiGrow/faq/GIT442(This link is being provided for informational/educational purposes only.) [facility]] HEMOGLOBIN [id number] 08:59:00* Test Item Value Reference Range Interpretation [...] diagnosis of diabetes in children. According to [place] Diabetes Association (ADA)guidelines, hemoglobin A1c <7.0% represents optimalcontrol in non- diabetic patients. Differentmetrics may apply to specific patient populations. Standards of Medical Care in Diabetes(ADA). [facility][O] Urine Dipstick (In Office)2018-02-25 14:14:00 * Test Item Value Reference Range Interpretation Comments Glucose (test code = Glucose) normal N LEUKOCYTES (test code = LEUKOCYTES) + NITRITE; Normal (test code = 96759-5) neg N UROBILINOGEN; Normal (test code = 45753-3) neg N PROTEIN (test code = 56110-2) trace pH (test code = pH) 5 URINE BLOOD (test code = 32977-5) about 50 SPECIFIC GRAVITY (test code = 2965-2) 1.020 KETONES; Normal (test code = 58881-4) neg N BILIRUBIN; Normal (test code = 14894-9) neg N COLOR URINE; Normal (test code = 5778-6) yellow N APPEARANCE; Normal (test code = 5767-9) clear N [facility]] CULTURE, URINE, [id number] 00:00:00* Test Item Value Reference Range Interpretation Comments CULTURE (test code = CULTURE) See Comment A CULTURE, URINE, ROUTINE MICRO NUMBER: [id number] TEST STATUS: FINAL SPECIMEN SOURCE: URINE SPECIMEN QUALITY: ADEQUATE RESULT: 10,000-50,000 CFU/mL of Streptococcus viridans group May represent colonizers from external and internal genitalia. No further testing (including susceptibility) will be performed. COMMENT: Additional organism(s) less than 10,000 CFU/mL isolated. These organisms, commonly found on external and internal genitalia, are considered colonizers. No further testing performed. [facility]
[2020-03-07] MEDS ORDERED: MIDAZOLAM HCL 2 MG/2 ML VIAL IV STA (16:59)
[2020-03-07] MEDS ORDERED: ETOMIDATE 2 MG/ML 10 ML INJ IV STA (16:59)
[2020-03-07] MEDS ORDERED: SODIUM CHLORIDE 0.9% 1000ML 1,000 ML IV ONE (17:15)
[2020-03-07] MEDS ORDERED: PROPOFOL IV EMULSION 10 MG/ML 20 ML VIAL IV ONE ×2 (17:15)
[2020-03-07] MEDS ORDERED: PROPOFOL IV EMULSION 10 MG/ML 20 ML VIAL ONE (17:20)
[2020-03-07] MEDS ORDERED: SODIUM CHLORIDE 0.9% 1000ML 1,000 ML ONE (17:20)
[2020-03-07 17:28] VITALS: BP 154/70
--- NOTE | 2020-03-07 17:51 | NUR ---
Pt AAOx4. Dr. Parson at [facility] finishing up splint placement to left arm. Pt able to move fingers without difficulty. Denies any numbness to fingers. Pt following all commands. capillary refill <2 sec.
--- NOTE | 2020-03-07 18:01 | Emergency Department Note ---
History of Present Illnes History of Present Illness Chief Complaint: Extremity Trauma/Pain History of Present Illness This is a 70 year old female APPROX 2 WEEKS AGO FELL, DISLOCATING AND FRACTURING LEFT ELBOW, SURGICAL REPAIR, SAW DR PAZ TODAY AND ELBOW DISLOCATED Historian: Patient Arrival Mode: Car Additional Treatment CHERRY DIPPER: NONE Location: LEFT ELBOW Quality: PAIN Radiation: Reports non-radiation Severity: moderate Onset quality: gradual Timing of current episode: constant Chronicity: recurrent Context: Denies recent illness Relieving factors: none Exacerbating factors: none Associated symptoms: Reports denies other symptoms Treatments prior to arrival: none Past Medical/Family History Physician Review I have reviewed the patient's past medical and family history. Any updates have been documented here. 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 Past Surgical History: Hysterectomy Other Surgery: SINUS SURGERY (L) FOOT BUNION REMOVAL HEART CATH WITH NO INTERVENTION LEFT ELBOW DISLOCATIONS Social History Smoking Cessation: Never Smoker Counseling Performed: No Alcohol Use: None Any Illegal Drug Use: No TB Exposure/Symptoms: No Physically hurt or threatened: No Family History Family history of heart diseas: No Other Any Pre-Existing Lines (PICC,: No Review of Systems Review of Systems Constitutional: Reports no symptoms EENTM: Reports no symptoms Cardiovascular: Reports no symptoms Respiratory: Reports no symptoms Gastrointestinal: Reports no symptoms Genitourinary: Reports no symptoms Musculoskeletal: Reports as per HPI Integumentary: Reports no symptoms Neurological: Reports no symptoms Psychological: Reports no symptoms Endocrine: Reports no symptoms Hematological/Lymphatic: Reports no symptoms Physical Exam Related Data Allergies: Coded Allergies: cephalexin (Verified Allergy, Unknown, HEART PALPITATIONS PER PT, 02/20/20) fluconazole (Verified Allergy, Unknown, ACUTE HIVES PER PT, 02/20/20) sulfamethoxazole (Verified Allergy, Unknown, HIVES PER PT, 02/20/20) trimethoprim (Verified Allergy, Unknown, HIVES PER PT, 02/20/20) Triage Vital Signs Vital Signs Date Time Temp Pulse Resp B/P (MAP) Pulse Ox O2 Delivery O2 Flow Rate FiO2 03/07/20 15:20 98.4 69 18 151/64 100 Room Air Vital signs reviewed: Yes Physical Exam CONSTITUTIONAL Constitutional: Present well-developed, Present well-nourished HENT HENT: Present normocephalic, Present atraumatic, Present oropharynx clear/moist, Present nose normal HENT L/R: Present left ext ear normal, Present right ext ear normal EYES Eyes: Reports PERRL, Reports conjunctivae normal NECK Neck: Present ROM normal PULMONARY Pulmonary: Present effort normal, Present breath sounds normal CARDIOVASCULAR Cardiovascular: Present regular rhythm, Present heart sounds normal, Present capillary refill normal, Present normal rate GASTROINTESTINAL Abdominal: Present soft, Present nontender, Present bowel sounds normal GENITOURINARY Genitourinary: Present exam deferred SKIN Skin: Present warm, Present dry MUSCULOSKELETAL Musculoskeletal: Present deformity, Present tenderness (LEFT ELBOW) NEUROLOGICAL Neurological: Present alert, Present oriented x 3, Present no gross motor or sensory deficits PSYCHOLOGICAL Psychological: Present mood/affect normal, Present judgement normal Procedures Orthopedic Joint Reduction Additional comments REDUCTION BY DR PAZ, ORTHO Procedural Sedation Indication: fracture/dislocation reduction Pre-sedation evaluation: MALLAMPATI 2 ASA class: II Time of last PO intake: 09:00 IV Propofol dose (mg): 75 Patient tolerated procedure: well Complications: none Additional comments ANOTHER 25 MG IV PROPOFOL DURING REDUCTION BY DR PAZ Assessment & Plan Medical Decision Making MDM ELBOW DISLOCATION, HERE TO GET MOD SEDATION & REDUCTION Reassessment Reassessment DC HOME, SPLINT APPLIED BY DR PAZ, F/U JACKSON Assessment & Plan Final Impression: (1) Elbow dislocation Depart Disposition: HOME, SELF-CARE Last Vital Signs Date Time Temp Pulse Resp B/P (MAP) Pulse Ox O2 Delivery O2 Flow Rate FiO2 03/07/20 15:20 98.4 69 18 151/64 100 Room Air Home Meds Active Scripts Ondansetron Hcl* (ZOFRAN*) 4 Mg Tablet, 4 MG PO Q8HR PRN for NAUSEA, #20 Prov:TOMMY DONG MECHANICAL SUPERVISOR 02/24/20 Hydrocodone Bit/Acetaminophen (NORCO 5-325 TABLET) 1 Each Tablet, 1 TAB PO Q4H PRN for MODERATE PAIN (4-6), #30 TAB Prov:TOMMY DONG M MECHANICAL SUPERVISOR 02/24/20 Reported Medications Tetrahydrozoline Hcl (EYE DROPS) 15 Ml Drops, 1 DROP OU QID 02/21/20 Mu-Vits-Min Th/Lycopene/Lutein (CENTRUM SILVER TABLET) 1 Each Tablet, 1 EA PO DAILY 02/21/20 [Calcium] No Conflict Check, 500 MG PO DAILY 02/21/20 Mv-Mn/Iron/Folic Acid/Herb 190 (Vitamin D3 Complete Caplet) 1 Each Tablet, 1 EA PO DAILY 02/21/20 Fexofenadine Hcl (ANDREA ALLERGY) 180 Mg Tablet, 180 MG PO DAILY 02/21/20 Pravastatin Sodium (PRAVACHOL) 40 Mg Tablet, 40 MG PO HS, TAB THERAPEUTICALLY SUBSTITUTED WITH SIMVASTATIN 20MG 02/21/20 Betamethasone/Clotrimazole (CLOTRIMAZOLE-BETAMETHASONE CRM) 15 Gm Cr, 15 GM TOP, EACH 02/21/20 Aspirin (ASPIRIN) 81 Mg Tab.chew, 81 MG PO 3 TIMES A WEEK. MON, WED, Sat02/21/20 Doxazosin Mesylate (DOXAZOSIN MESYLATE) 2 Mg Tablet, 4 MG PO HS, #30 TAB 02/21/20 Atenolol (ATENOLOL) 50 Mg Tablet, 50 MG PO BID 02/21/20 Amlodipine Besylate (AMLODIPINE BESYLATE) 5 Mg Tablet, 5 MG PO DAILY, #30 TAB 02/21/20 Olmesartan Medoxomil (BENICAR) 20 Mg Tablet, 40 MG PO DAILY, #30 TAB 02/21/20 Levothyroxine Sodium (LEVOTHYROXINE SODIUM) 88 Mcg Tablet, 88 MCG PO DAILY, #30 TAB 02/21/20 Medications in the ED Midazolam HCl 1 mg NOW STAT IV ; Start 03/07/20 at 16:59; Stop 03/07/20 at 17:12; Status DC Etomidate 10 mg NOW STAT IV ; Start 03/07/20 at 16:59; Stop 03/07/20 at 17:12; Status DC Propofol 50 mg NOW ONCE IV ; Start 03/07/20 at 17:15; Stop 03/07/20 at 17:31; Status DC Sodium Chloride 1,000 ml @ STK-MED ONCE .ROUTE ; Start 03/07/20 at 17:20; Stop 03/07/20 at 17:14; Status DC Propofol 200 mg STK-MED ONCE .ROUTE ; Start 03/07/20 at 17:20; Stop 03/07/20 at 17:14; Status DC EFREN AGUSTIN MD Mar 07, 2020 18:01
--- NOTE | 2020-03-07 18:05 | NUR ---
Pt remains AAOx4. RR even and unlabored. NAD noted. Vitals stable. Arm placed back in sling, Care hand off to JAMIR Pickens.
--- NOTE | 2020-03-07 18:45 | Diagnostic Imaging Report ---
ELBOW LEFT AP LAT, ELBOW LEFT AP LAT - Multiple views HISTORY: post closed reduction COMPARISON: Elbow x-ray performed earlier same day FINDINGS/IMPRESSION: A new cast overlying the elbow and forearm Status post surgical fixation of the comminuted fracture dislocation of the ulnohumeral and radiocapitellar joints. There is overlying cast. The previously seen multiple intraarticular loose fragments no longer seen in this limited view. Skin mariola are present. Signed by: John Herrera MD on 03/07/2020 6:41 PM
--- NOTE | 2020-03-07 18:45 | Diagnostic Imaging Report ---
ELBOW LEFT AP LAT - Multiple views HISTORY: post closed reduction COMPARISON: CT abdomen dated 02/21/2020. FINDINGS/IMPRESSION: Status post surgical fixation of the comminuted fracture dislocation of the ulnohumeral and radiocapitellar joints. The previously seen multiple intraarticular loose fragments no longer seen in this limited view. Skin mariola are present. Signed by: John Herrera MD on 03/07/2020 6:42 PM
--- NOTE | 2020-03-08 11:31 | Progress Note ---
DATE: 03/07/2020 HISTORY OF PRESENT ILLNESS: Ms. Rasmussen is a 70-year-old female who is approximately two weeks status post fixation of terrible triad placement and treatment of elbow dislocation. She presented to clinic, found to have an elbow dislocation and was then sent to the emergency room for reduction and further treatment. She currently states her pain is well controlled. No numbness or tingling into her fingers. REVIEW OF SYSTEMS: Negative for any fevers or chills. PHYSICAL EXAMINATION: Incision site is clean, dry, and intact. Intact AIN, PIN and ulnar motor function. Sensation intact to light touch in the median, radial, ulnar nerve distributions. Fingers are warm and well perfused with moderate swelling to the hand. IMAGING: X-rays demonstrate anterior dislocation of the elbow. PLAN: I discussed the pathology as well as treatment options with the patient. Recommend closed reduction under anesthesia this date followed by revision surgery later this week. She tolerated the procedure well without any complications. X-rays demonstrated postoperative reduction. We will see her back on date of surgery. MD MAURO Park/MODL /[id number]
--- NOTE | 2020-03-09 15:03 | Operative Report ---
DATE OF PROCEDURE: 03/07/2020 SURGEON: Raven Parson MD PREPROCEDURE DIAGNOSIS: Left elbow dislocation. POSTPROCEDURE DIAGNOSIS: Left elbow dislocation. PROCEDURE PERFORMED: Closed reduction of left elbow dislocation. IT NETWORK ADMINISTRATOR: None. ANESTHESIA: Sedation. COMPLICATIONS: None. SPECIMENS: None. BLOOD LOSS: Minimal. INDICATIONS FOR PROCEDURE: Olga Rasmussen is a 70-year-old female who sustained a left elbow fracture dislocation approximately 2-1/2 weeks ago and underwent fixation approximately 2 weeks ago and presented to clinic with dislocated elbow. She is indicated for reduction to be performed in the emergency room under sedation. Benefits and risks of the procedure were discussed with the patient in detail including need for additional surgery as well as potential damage to neurovascular structures and repeat dislocation. She expressed understanding. DESCRIPTION OF PROCEDURE: Conscious sedation was provided by the Emergency Department staff. A reduction maneuver was then performed and reduction of the elbow was then confirmed with maintenance of range of motion as well as multiplanar radiographic views. Once the x-rays demonstrated adequate reduction, a splint was placed and repeat radiographs were obtained demonstrating continued elbow reduction. The patient was then awoken from conscious sedation and once stable, was discharged home. POSTOPERATIVE PLAN: The patient will be discharged home today. We will see her back in the operating room for revision surgery this week. She is to maintain the splint on at all times. No weightbearing. Raven Parson MD HD/MODL /[id number]
== END 2020-03-07 18:59 | disposition home or self-care (01) ==
LOC: ER 14:45
DX: S53.195A Other dislocation of left ulnohumeral joint, initial encounter (principal); W18.30XA Fall on same level, unspecified, initial encounter; I10 Essential (primary) hypertension; I87.2 Venous insufficiency (chronic) (peripheral); E03.9 Hypothyroidism, unspecified; E78.00 Pure hypercholesterolemia, unspecified
CPT/HCPCS: 24605; 73070; 99284; J2704; J7030

== ENCOUNTER → 2020-03-15 | Day surgery (SDC) | payer MEDICARE, OTHER ==
[2020-03-10 13:38] LABS: BASOPHILS # (AUTO) 0.1 (0.0-0.1); BASOPHILS % 0.6 % (0.0-1.0); EOSINOPHILS # (AUTO) 0.2 (0.0-0.4); EOSINOPHILS % 2.7 % (0.0-6.0); HEMATOCRIT 36.7 % (34.2-44.1); HEMOGLOBIN 11.2 g/dL (12.0-16.0); LYMPHOCYTES # (AUTO) 1.8 (1.0-3.2); MEAN CORPUSCULAR HEMOGLOBIN 28.2 pg (28-32); MEAN CORPUSCULAR HGB CONC 30.5 g/dL (31-35); MEAN CORPUSCULAR VOLUME 92.4 fL (81-99); MONOCYTES # (AUTO) 0.8 (0.2-0.8); MONOCYTES % 9.2 % (4.4-11.3); NEUTROPHILS # (AUTO) 5.3 (2.1-6.9); NEUTROPHILS % 65.3 % (38.7-80.0); PLATELET COUNT 288 x10e3/uL (140-360); RED BLOOD COUNT 3.97 x10e6/uL (3.6-5.1); RED CELL DISTRIBUTION WIDTH 14.6 % (11.7-14.4)
--- NOTE | 2020-03-10 14:19 | Diagnostic Imaging Report ---
EXAMINATION: CHEST 2 VIEWS INDICATION: Elbow dislocation. ^[id number] ^[id number] ^PRE-OP COMPARISON: 02/21/2020 FINDINGS: TUBES and LINES: None. LUNGS: Lungs are well inflated. Mild chronic appearing changes in the lungs with what appears to be mild scarring/atelectasis at the lung bases. No focal lung consolidation. PLEURA: No pleural effusion or pneumothorax. HEART AND MEDIASTINUM: The cardiomediastinal silhouette is unremarkable. BONES AND SOFT TISSUES: No acute osseous lesion. Soft tissues are unremarkable. UPPER ABDOMEN: No free air under the diaphragm. IMPRESSION: Mild chronic appearing changes in the lungs with what appears to be mild scarring/atelectasis at the lung bases. No focal lung consolidation. Signed by: Dr. Thang Crabtree M.D. on 03/10/2020 2:16 PM
[~2020-03-15] VITALS: Ht 160 cm; Wt 108.9 kg
[~2020-03-15] MED LIST changes: +CLINDAMYCIN PHOS 900MG/ 50ML 50 ML IV ONE; +DEXAMETHASONE SOD PHOS INJ 4 MG/ML VIAL ONE; +FENTANYL CITRATE/PF 100MCG/2 ML INJ ONE; +HYDROCODONE/APAP 5MG-325MG TAB ONE; +LIDOCAINE HCL 2% LOCAL INJ 5 ML SDV VIAL INJ ONE; +ONDANSETRON HCL INJ 2MG/ML 2ML 2 MG/ML VIAL ONE; +PROPOFOL IV EMULSION 10 MG/ML 20 ML VIAL ONE; +SEVOFLURANE INHAL SOLN 250 ML PEN BTL ONE
[2020-03-15 17:15] VITALS: BP 178/81
--- NOTE | 2020-03-15 22:57 | Operative Report ---
DATE OF PROCEDURE: 03/15/2020 SURGEON: Raven Parson MD PREPROCEDURE DIAGNOSIS: Left elbow dislocation. POSTPROCEDURE DIAGNOSIS: Left elbow dislocation. PROCEDURE PERFORMED: Open treatment of elbow dislocation, repair of lateral ulnar collateral ligament. BANK VAULT ATTENDANT: None. ANESTHESIA: General. COMPLICATIONS: None. SPECIMENS: None. ESTIMATED BLOOD LOSS: 100 mL. INDICATIONS FOR PROCEDURE: Olga Rasmussen is a 70-year-old female, who sustained a left elbow dislocation terrible triad that was treated operatively approximately two weeks prior. She presented to our clinic with her splint displaced as well as evidence of an elbow dislocation. She underwent a closed reduction on that evening is indicated for revision surgery. Benefits and risks of surgery were discussed with the patient including bleeding, infection, damage to vascular structures, need for additional surgery, persistent pain, stiffness, instability, possible loss of life or limb and knowing that she elected to proceed with surgery. DESCRIPTION OF PROCEDURE: The patient was identified in the preoperative holding area, the above-noted site was marked. She was then transferred to the operating room, where the above-noted anesthesia was induced. She was placed supine on the table with the left upper extremity on to the hand table. The left upper extremity was then prepped and draped in usual sterile fashion. Preoperative antibiotics were dosed and all were in agreement. A preprocedural time-out was began. A sterile tourniquet was placed high into the upper extremity. An Esmarch was used to exsanguinate the limb and tourniquet raised to 250 mmHg. We first began by extending our previous lateral incision proximally and distally and created full-thickness flaps off the extensor fascia. There was noted to be significant edema within the soft tissues. Once we created our soft-tissue flaps, we then turned our attention to our repair. Previous sutures from the lateral ulnar collateral ligament repair were removed. There was noted to be some significant serous fluid. This was cultured and sent off to the lab. The previous Renetta interval was then exploited and the elbow was noted to be reduced in this position. However, it was noted to be grossly unstable. Copious irrigation was performed. The radial head arthroplasty appeared to be intact with good fixation. There was noted to be some chondral injury present to the humeral head along the capitellum. After copious irrigation performed, and applied varus force to the elbow and then turned our attention to placement of the internal joint stabilizer device. I elected to use this device due to the patient's body habitus as well as concern for persistent instability. The axis guide was used to olivier out the center rotation and the centering guide was then placed over the medial trochlea and the guide pin was then introduced. We verified on multiplanar fluoroscopy that we were satisfied with position of the guidewire and then advanced the guidewire, making sure to not protrude beyond the medial cortex. Once this was performed, we then measured and selected an axis pin of appropriate length. We elected to place a 45 mm pin. We then drilled over the guidewire and with a cannulated drill bit and placed this on the back table. We then turned our attention to placement of ulnar base plate. We positioned the ulnar base plate along the subcutaneous border of the ulna and held the base plate in position and checked the position on multiplanar fluoroscopy. Once we were satisfied with this, we then drilled a single screw along locking screw into the oblong hole to gain fixation. We then adjusted the position of the base plate under multiplanar fluoroscopy. We then placed two additional screws into the proximal and distal holes. We then assembled the boom and inserted the locking pin into the previously drilled path. We secured this down into place, well connected to the boom and tightened these screws. We were able to get the elbow joint anatomically reduced in position with the arm over the face and once visually reduced, we walked down our screws. We then confirmed this on multiplanar fluoroscopy. The elbow was noted to be reduced and was stable in flexion and extension. At this point, we were then satisfied with position of her IJS as well as the placement of our implants. We then cut the IJS arm short using a belt cutter. We then elected to repair the lateral ulnar collateral ligament using a suture anchor. We selected a 2.9 mm JuggerKnot and placed this just proximal to our pin for the IJS. We drilled the suture anchor in places and getting good fixation and then proceeded to place a Krackow suture into the remaining lateral collateral ligament as well as the extensor tendon. Once this was performed, we then satisfied with the repair. Copious irrigation was performed. The skin was then closed with 3-0 Vicryl sutures and mariola. The tourniquet was let down in the midportion of the surgery and hemostasis was obtained. The fingers had pinked up nicely. A soft sterile dressing was then placed followed by a posterior splint. The patient was then awoke from anesthesia and taken to the PACU in stable condition. POSTOPERATIVE PLAN: The patient will be discharged to home today. We will see her back in clinic in one week and will transition to a removal of brace and start therapy. MD MAURO Park/MODL /[id number]
== END | disposition home or self-care (01) ==
LOC: OR 10:13
PROVIDERS: ATTEND Orthopaedic Surgery
DX: M24.421 Recurrent dislocation, right elbow (principal); E03.9 Hypothyroidism, unspecified; I10 Essential (primary) hypertension; M06.9 Rheumatoid arthritis, unspecified; Z84.89 Family history of other specified conditions; Z01.810 Encounter for preprocedural cardiovascular examination; Z01.812 Encounter for preprocedural laboratory examination; Z01.818 Encounter for other preprocedural examination
CPT/HCPCS: 24343; 24615; 36415; 71046; 85025; 87071; 87075; 87205; 93005; J1100; J2001; J2405; J2704; J3010; U0002

== ENCOUNTER → 2020-07-05 | Day surgery (SDC) | payer MEDICARE ==
[2020-06-30 09:27] LABS: BASOPHILS % 0.5 % (0.0-1.0); EOSINOPHILS # (AUTO) 0.3 (0.0-0.4); EOSINOPHILS % 2.9 % (0.0-6.0); HEMATOCRIT 37.4 % (34.2-44.1); HEMOGLOBIN 11.9 g/dL (12.0-16.0); LYMPHOCYTES # (AUTO) 2.1 (1.0-3.2); LYMPHOCYTES % 24.2 % (18.0-39.1); MEAN CORPUSCULAR HEMOGLOBIN 28.1 pg (28-32); MEAN CORPUSCULAR HGB CONC 31.8 g/dL (31-35); MEAN CORPUSCULAR VOLUME 88.2 fL (81-99); MONOCYTES # (AUTO) 0.6 (0.2-0.8); MONOCYTES % 6.5 % (4.4-11.3); NEUTROPHILS # (AUTO) 5.7 (2.1-6.9); NEUTROPHILS % 65.6 % (38.7-80.0); PLATELET COUNT 261 x10e3/uL (140-360); RED BLOOD COUNT 4.24 x10e6/uL (3.6-5.1); RED CELL DISTRIBUTION WIDTH 14.1 % (11.7-14.4)
[~2020-07-05] MED LIST changes: +ARTIFICIAL TEARS (OPTH) 15 ML BTL OU PRN; +BUPIVACAINE HCL 0.5% INJ 30 ML VIAL INJ ONE; -FENTANYL CITRATE/PF 100MCG/2 ML INJ ONE; -HYDROCODONE/APAP 5MG-325MG TAB ONE; +LIDOCAINE HCL 1% LOCAL INJ 20 ML VIAL ONE; +LIDOCAINE HCL 2% JELLY 5 ML TUBE ONE
[2020-07-05 13:30] VITALS: BP 184/83
== END | disposition home or self-care (01) ==
LOC: OR 09:07
PROVIDERS: ATTEND Orthopaedic Surgery
DX: T84.84XA Pain due to internal orthopedic prosthetic devices, implants and grafts, initial encounter (principal); E03.9 Hypothyroidism, unspecified; I10 Essential (primary) hypertension; Y83.8 Other surgical procedures as the cause of abnormal reaction of the patient, or of later complication, without mention of misadventure at the time of the procedure; Z88.1 Allergy status to other antibiotic agents; Z88.2 Allergy status to sulfonamides; Z88.8 Allergy status to other drugs, medicaments and biological substances; Z01.812 Encounter for preprocedural laboratory examination; Z20.828 Contact with and (suspected) exposure to other viral communicable diseases; Z79.82 Long term (current) use of aspirin; Z86.718 Personal history of other venous thrombosis and embolism
CPT/HCPCS: 20680; 36415; 85025; J2001; U0002; J1100; J2405